=== PATIENT | female | born 1985 ===

== ENCOUNTER 2023-02-09 15:28 | Outpatient (REF) | payer OTHER, SELFPAY ==
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
== END 2023-02-09 15:29 | disposition home or self-care (01) ==
LOC: HO.HHCX 15:28
PROVIDERS: Visit Provider General Practice
DX: S13.4XXA Sprain of ligaments of cervical spine, initial encounter (principal)
CPT/HCPCS: 72070

== ENCOUNTER 2023-02-26 19:06 | Outpatient (REF) | payer OTHER, MEDICAID, SELFPAY | END 2023-02-26 19:07 | disposition home or self-care (01) | LOC: HO.HHCLNP 19:06 | PROVIDERS: Visit Provider Family Medicine | DX: J02.9 Acute pharyngitis, unspecified (principal) | CPT/HCPCS: 87070 ==

== ENCOUNTER 2023-04-10 13:23 | Outpatient (REF) | payer OTHER, SELFPAY ==
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
== END 2023-04-10 13:24 | disposition home or self-care (01) ==
LOC: HO.HHCX 13:23
PROVIDERS: Visit Provider Family Medicine
DX: M54.2 Cervicalgia (principal)
CPT/HCPCS: 72040

== ENCOUNTER 2023-06-04 09:58 | Outpatient (REF) | payer OTHER, MEDICAID, SELFPAY ==
--- NOTE | 2023-06-04 10:12 | EMG_ITS ---
Left median and ulnar motor and sensory studies were performed. Left radial sensory study was performed and paraspinal muscles were tested with a needle. IMPRESSION: Mild left ulnar neuropathy across cubital tunnel. MD JUAN C Doss/DAYNA / [id number]
== END 2023-06-04 09:59 | disposition home or self-care (01) ==
LOC: HO.NEURO 09:58
PROVIDERS: PCP Family Medicine; Visit Provider Family Medicine
DX: G56.22 Lesion of ulnar nerve, left upper limb (principal); M54.2 Cervicalgia
CPT/HCPCS: 95886; 95909

== ENCOUNTER 2023-06-25 08:54 | Outpatient (AMB) | payer MEDICAID, SELFPAY ==
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
[2023-06-25 09:05] VITALS: BP 122/70; PULSE 71; O2SAT 97; BMI 37.3
== END 2023-06-25 09:28 | disposition home or self-care (01) ==
PROVIDERS: PCP Family Medicine; Visit Provider Registered Nurse Emergency
DX: M47.812 Spondylosis without myelopathy or radiculopathy, cervical region (principal); S46.819A Strain of other muscles, fascia and tendons at shoulder and upper arm level, unspecified arm, initial encounter
CPT/HCPCS: 99204

== ENCOUNTER → 2023-06-25 08:54 | Outpatient (BNVA) | payer OTHER, MEDICAID, SELFPAY | PROVIDERS: PCP Family Medicine; Visit Provider Registered Nurse Emergency | DX: M47.812 Spondylosis without myelopathy or radiculopathy, cervical region (principal); S46.819A Strain of other muscles, fascia and tendons at shoulder and upper arm level, unspecified arm, initial encounter | CPT/HCPCS: 99212 ==

== ENCOUNTER 2023-08-04 10:30 | Outpatient (RCR) | payer OTHER, MEDICAID, SELFPAY | END 2023-08-21 14:02 | disposition home or self-care (01) | LOC: HO.OT 10:30 | PROVIDERS: PCP Family Medicine; Visit Provider Family Medicine | DX: G56.22 Lesion of ulnar nerve, left upper limb (principal) | CPT/HCPCS: 97110; 97140; 97165 ==

== ENCOUNTER → 2023-08-05 11:27 | Outpatient (BNVA) | payer OTHER, MEDICAID, SELFPAY | PROVIDERS: PCP Family Medicine; Visit Provider Registered Nurse Emergency ==

== ENCOUNTER 2023-08-05 11:28 | Outpatient (AMB) | payer MEDICAID, SELFPAY ==
[2023-08-05 11:33] VITALS: BP 133/80; PULSE 66; RESP 18; O2SAT 98; BMI 37.1
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
== END 2023-08-05 11:46 | disposition home or self-care (01) ==
PROVIDERS: PCP Family Medicine; Visit Provider Registered Nurse Emergency
DX: M47.812 Spondylosis without myelopathy or radiculopathy, cervical region (principal); S46.819A Strain of other muscles, fascia and tendons at shoulder and upper arm level, unspecified arm, initial encounter
CPT/HCPCS: 99213

== ENCOUNTER 2023-09-22 12:48 | Outpatient (REF) | payer OTHER, MEDICAID, SELFPAY ==
[2023-09-22 16:26] LABS: Hematocrit 45.4 % (37.0-47.0); Hemoglobin 15.1 g/dl (12.0-16.0); Mean Corpuscular HGB Conc 33.3 g/dl (31.0-35.0); Mean Corpuscular Hemoglobin 29.3 pg (27.0-33.0); Mean Corpuscular Volume 88.2 fL (80.0-98.0); Mean Platelet Volume 9.8 fL (9.4-12.3); Platelet Count 401 X10*3/uL (160-400); Red Blood Count 5.15 X10*6/uL (4.20-5.50); Red Cell Distribution Width 12.2 % (11.0-16.0)
[2023-09-22 16:37] LABS: Estimated Average Glucose 117 mg/dL; Hemoglobin A1c % 5.7 % (<6.0)
[2023-09-22 16:55] LABS: Alanine Aminotransferase 24 U/L (0-31); Albumin Level 4.5 g/dL (3.5-5.0); Alkaline Phosphatase 76 U/L (39-117); Anion Gap 13 (12-20); Aspartate Amino Transferase 23 U/L (5-31); Bilirubin Direct 0.2 mg/dL (0.0-0.5); Bilirubin Total 0.4 mg/dL (0.0-1.0); Blood Urea Nitrogen 8 mg/dL (9-16); Calcium 9.6 mg/dL (8.4-10.2); Carbon Dioxide 25 mmol/L (22-29); Chloride 105 mmol/L (96-108); Cholesterol 209 mg/dL (<200); Estimated Glomerular Filt Rate > 60; Glucose Random 106 mg/dL (60-115); HDL Cholesterol 43 mg/dL (>40); Iron 56 mcg/dL (30-160); LDL Cholesterol Calculated 139 mg/dL (<100); Percent Iron Saturation 23 % (15-50); Sodium 139 mmol/L (135-145); Total Iron Binding Capacity 243 mcg/dL (228-428); Total Protein 7.8 g/dL (6.5-8.0); Triglycerides 139 mg/dL (<150); Unsaturated Iron Binding 187 ug/dL
[2023-09-22 17:03] LABS: Ferritin 294 ng/mL (10-122); Free T4 (Free Thyroxine) 1.05 ng/dL (0.71-1.85); Thyroid Stimulating Hormone 1.57 uIU/mL (0.32-4.0); Vitamin D 25-OH Total 53.2 ng/mL (>30)
[2023-09-22 17:33] LABS: Folate 9.6 ng/mL (> or = 4.0); Vitamin B12 300 pg/mL (200-900)
[2023-09-23 04:13] LABS: HIV AB/AG Nonreactive (Nonreactive); HIV Num 1 0.06 S/CO (0.00-0.99); Hepatitis B Surface Antigen Negative (Negative); ~HepC Num1 0.11 S/CO (0.00-0.79); ~Hepatitis B Surface Antibody REACTIVE (Nonreactive); ~Hepatitis C Antibody Nonreactive (Nonreactive)
[2023-09-23 05:29] LABS: CT PCR NOT DETECTED (Not Detect.); NG PCR NOT DETECTED (Not Detect.)
[2023-09-23 21:54] LABS: RPR Rapid Plasma Reagin NON-REACTIVE (NON-REACTIVE)
[2023-09-24 05:46] LABS: Rubella IgG Antibody 1.87 Index; Rubeola IgG (Measles) >300.00 AU/mL
== END 2023-09-22 12:49 | disposition home or self-care (01) ==
LOC: HO.HHCL 12:48
PROVIDERS: Visit Provider Family Medicine
DX: Z00.00 Encounter for general adult medical examination without abnormal findings (principal); Z11.4 Encounter for screening for human immunodeficiency virus [HIV]; Z13.6 Encounter for screening for cardiovascular disorders; D64.9 Anemia, unspecified; Z20.2 Contact with and (suspected) exposure to infections with a predominantly sexual mode of transmission
CPT/HCPCS: 0353U; 36415; 80048; 80061; 80076; 82306; 82607; 82728; 82746; 83036; 83540; 84439; 84443; 85027; 86592; 86706; 86735; 86762; 86765; 86787; 86803; 87340; 87389

== ENCOUNTER 2023-10-13 06:07 | Outpatient (REF) | payer OTHER, MEDICAID, SELFPAY ==
--- NOTE | ~2023-10-13 | FL_ITS ---
EXAMINATION: XR FLUOROSCOPY WITH IMAGES CLINICAL INFORMATION: Cervical spondylosis, without myelopathy or radiculopathy. COMPARISON: Cervical spine radiographs dated 04/10/2023. TECHNIQUE: Fluoroscopy Supervised By: Dr. Tito Middleton. Fluoroscopy Time: 0.3 minutes. Cumulative Dose: 3.20 mGy. DAP: 0.872 Gycm2. Images: 4. FINDINGS: The submitted images show injection needles and injected contrast in the vicinity of 3 left mid cervical neural foramina. FL/FL guidance in treatment room IMPRESSION: Intraoperative fluoroscopic guidance is provided during cervical spine pain management procedure. Please see the patient's Operative Report for full procedural details.
== END 2023-10-13 06:08 | disposition home or self-care (01) ==
LOC: CF 06:07
PROVIDERS: Visit Provider Anesthesiology
DX: M47.812 Spondylosis without myelopathy or radiculopathy, cervical region (principal); S46.812D Strain of other muscles, fascia and tendons at shoulder and upper arm level, left arm, subsequent encounter
CPT/HCPCS: 64490; 64491; J2795; Q9967

== ENCOUNTER 2023-10-13 10:58 | Outpatient (AMB) | payer OTHER, MEDICAID, SELFPAY ==
[2023-10-13 11:41] VITALS: BP 112/64; PULSE 74; RESP 16; O2SAT 98; BMI 37.1
--- NOTE | 2023-10-13 11:41 | MHC.OFFVIS ---
Intake Vital Signs 10/13/23 11:41 10/13/23 11:42 Height 5 ft Weight 190 lb BMI 37.1 BP 112/64 126/82 Blood Pressure Location Lt brachial Lt brachial Position Sitting Sitting Respiration 16 18 Pulse 74 84 Pulse Source Pulse Oximeter Pulse Oximeter Pulse Oximetry (%) 98 99 Oxygen Delivery Method Room Air Room Air Comment Pre-Op Post-Op Intake Visit Reasons: LEFT DIAGNOSTIC C4, C5, C6 MBB Allergies oxycodone Allergy (Unknown, Verified 08/05/23 11:35) Vomiting codeine Adverse Reaction (Unknown, Verified 08/05/23 11:35) Itching FRUIT, SKINS Allergy (Intermediate, Uncoded 03/15/20 15:34) ITCHING PFSH Medical History (Updated 06/25/23 @ 09:35 by Dinora Bahena APRN, WATER TRUCK DRIVER) GERD (gastroesophageal reflux disease) Hypothyroidism Depression Chronic low back pain Anemia Allergic rhinitis Asthma Physical Exam Vital Signs: Last Vital Signs Pulse 84 10/13/23 11:42 Resp 18 10/13/23 11:42 BP 126/82 10/13/23 11:42 Pulse Ox 99 10/13/23 11:42 Oxygen Delivery Method Room Air 10/13/23 11:42 BMI result Body Mass Index 37.1 Assessment & Plan Assessment & Plan (1) Cervical spondylosis: Code(s): M47.812 - Spondylosis without myelopathy or radiculopathy, cervical region Plan: Left-sided C4-C4- C6 diagnose medial branch block. ?Informed consent was explained to the patient. All questions were explained and answered.? The patient was taken inside the operating room where she was positioned prone on the operating table. Time-out was performed delineating correct site, side, the nature of the procedure, patient's allergy, preoperative antibiotic if needed.? All operating room staff was participating in OR time-out procedure. The back of the neck and upper back were prepped with ChloraPrep and draped with sterile towels.? Sterilely draped C-arm was brought over the operating field and sq picture of? C4-C5-C6 vertebrae were delineated on the screen.? Points of interest were delineated as lateral masses on the left of the vertebrae as above. The waste of each lateral mass was chosen as the target of the tip of the needles on AP view and lateral view was used as a safety view for the tips of the needles position.?? The projections of the point of interest to the skin were injected with the small amount of local anesthetic lidocaine 2% 1-1.5 cc.? After that 22 gauge 3and 1/2 inch? spinal needles were driven to the point of interest in tunnel vision fashion. After needles gently contacted the bone at the point of interests the needle was injected with small amount of the contrast. The injections did not demonstrate intravascular or intrathecal spread.. After that ropivacaine 0.5%-1cc. was injected into each location of the needles. Upon completion of the injections the needles were removed and sterile dressings were applied, the patient was a taken? outside of the operating room to recovery room where she recovered uneventfully. (2) Trapezius muscle strain: Code(s): S46.819A - Strain of other muscles, fascia and tendons at shoulder and upper arm level, unspecified arm, initial encounter Plan Sarah is a very pleasant 38 year old female who presented to the office today for follow-up Patient has exhausted greater than 6 months conservative therapy including muscle relaxers, NSAIDs, Tylenol, topical ointment, heat, ice, physical therapy. Continue with Zynex Tens unit Schedule for diagnostic fluoroscopy guided right C4-C5 C6 MBBs with local anesthetic. All questions and concerns were addressed during the visit. Patient agrees the plan. Follow-up after injection, sooner if needed. Orders: Orders FL guidance in treatment room Today M47.812 - Spondylosis without myelopathy or radiculopathy, cervical region Coding Level of Care Code Procedure Only Diagnoses Cervical spondylosis M47.812 Trapezius muscle strain S46.819A
[2023-10-13 11:42] VITALS: BP 126/82; PULSE 84; RESP 18; O2SAT 99
== END 2023-10-13 11:43 | disposition home or self-care (01) ==
LOC: HO.PMCPRC 10:58
PROVIDERS: PCP Family Medicine; Visit Provider Anesthesiology
DX: M47.812 Spondylosis without myelopathy or radiculopathy, cervical region (principal); S46.819A Strain of other muscles, fascia and tendons at shoulder and upper arm level, unspecified arm, initial encounter
CPT/HCPCS: 64490; 64491

== ENCOUNTER 2023-10-16 10:19 | Outpatient (AMB) | payer OTHER, MEDICAID, SELFPAY ==
[2023-10-16 10:43] VITALS: BP 120/64; PULSE 65; RESP 18; O2SAT 98; BMI 36.9
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
== END 2023-10-16 11:09 | disposition home or self-care (01) ==
PROVIDERS: PCP Family Medicine; Visit Provider Registered Nurse Emergency
DX: M47.812 Spondylosis without myelopathy or radiculopathy, cervical region (principal); S46.819A Strain of other muscles, fascia and tendons at shoulder and upper arm level, unspecified arm, initial encounter
CPT/HCPCS: 99213

== ENCOUNTER → 2023-10-16 10:19 | Outpatient (BNVA) | payer OTHER, MEDICAID, SELFPAY | PROVIDERS: PCP Family Medicine; Visit Provider Registered Nurse Emergency ==

== ENCOUNTER 2023-10-21 14:17 | Outpatient (AMB) | payer MEDICAID, SELFPAY ==
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
[2023-10-21 14:27] VITALS: BMI 36.9
== END 2023-10-21 15:18 | disposition home or self-care (01) ==
PROVIDERS: PCP Family Medicine; Visit Provider Physician Assistant
DX: G56.22 Lesion of ulnar nerve, left upper limb (principal)
CPT/HCPCS: 99204

== ENCOUNTER → 2023-10-21 14:17 | Outpatient (BNVA) | payer OTHER, MEDICAID, SELFPAY | PROVIDERS: PCP Family Medicine; Visit Provider Physician Assistant | DX: G56.22 Lesion of ulnar nerve, left upper limb (principal) | CPT/HCPCS: 99212 ==

== ENCOUNTER 2023-11-10 06:57 | Outpatient (REF) | payer MEDICAID, SELFPAY ==
--- NOTE | ~2023-11-10 | FL_ITS ---
EXAMINATION: XR FLUOROSCOPY WITH IMAGES CLINICAL INFORMATION: Spondylosis without myelopathy or radiculopathy, cervical region. COMPARISON: None available. TECHNIQUE: Fluoroscopy Supervised By: Dr. Tito Middleton. Fluoroscopy Time: 0.1 minutes. Cumulative Dose: 1.12 mGy. DAP: 0.0130 Gy-cm2. Images: 1. FINDINGS: Intraoperative fluoroscopy and spot films were performed during a procedure in the OR. Single image demonstrates a thin track of contrast overlying the left lower cervical spine. Please see Dr. Tito Middleton's report for complete details. FL/FL guidance in treatment room IMPRESSION: Intraoperative fluoroscopy and spot films were obtained. Please see Dr. Tito Middleton's report for complete details.
== END 2023-11-10 06:58 | disposition home or self-care (01) ==
LOC: CF 06:57
PROVIDERS: PCP Family Medicine; Visit Provider Anesthesiology
DX: M47.812 Spondylosis without myelopathy or radiculopathy, cervical region (principal); G56.22 Lesion of ulnar nerve, left upper limb; R20.0 Anesthesia of skin; R20.2 Paresthesia of skin
CPT/HCPCS: 64555; 99212

== ENCOUNTER 2023-11-10 10:23 | Outpatient (AMB) | payer MEDICAID, SELFPAY ==
--- NOTE | 2023-11-10 10:37 | A.OFFVIS_ITS ---
Vital Signs 11/10/23 11:09 11/10/23 11:10 Height 5 ft Weight 189 lb BMI 36.9 BP 122/76 118/68 Blood Pressure Location Lt brachial Lt brachial Position Sitting Sitting Respiration 18 18 Pulse 76 84 Pulse Source Pulse Oximeter Pulse Oximeter Pulse Oximetry (%) 97 97 Oxygen Delivery Method Room Air Room Air Comment Pre-Op Post-Op Intake Visit Reasons: Left C5 MB Sprint Allergies oxycodone Allergy (Unknown, Verified 10/21/23 14:32) Vomiting codeine Adverse Reaction (Unknown, Verified 10/21/23 14:32) Itching FRUIT, SKINS Allergy (Intermediate, Uncoded 10/21/23 14:32) ITCHING PFSH Medical History (Updated 10/21/23 @ 20:21 by Anai Peguero PA-C) GERD (gastroesophageal reflux disease) Hypothyroidism Depression Chronic low back pain Anemia Allergic rhinitis Asthma Social History (Updated 10/21/23 @ 14:27 by Erica Blunt Cinthia) Patient Tobacco Use Status: Former Tobacco user Current occupational status: employed 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 Percutaneous implantation of peripheral nerve stimulation Sprint system. After the risks, benefits and alternatives were discussed with the patient and informed consent was obtained, patient was placed in the prone position and padded to foster comfort. Time out was performed delineating correct site and side of the procedure , name and of the patient, patient participated in time out procedure. Sterily draped C-arm was brought over the operating field and clear picture of the C5 lamina on the left was delineated on the screen. The upper central portion of the lamina was chosen as a target of the needle tip insertion . After identifying and marking the intended target, the skin around the planned entry point and the subcutaneous tissues were injected with local anesthetic forming skin wheal.. A percutaneous sleeve and stimulating probe lead introduction system were assembled, inserted and advanced through the skin wheal to the point of interest under C-arm view in tunnel vision fashion, the introducer needle was delivered to a location in proximity to the nerve. Multiple stimulation parameters were used to deliver stimulation to the nerve in concert with stimulating at multiple positions around the nerve. nerve target acquisition was confirmed noting generation of in the corresponding to the nerve being stimulated. Various electrical parameter combinations were tested, and the lead location was adjusted (physically relocated) until the patient indicated overlapping the distribution of the patient?s typical region of pain. The stimulating probe was removed from the introducer and a percutaneous lead was guided through the needle and delivered to a location in similar proximity to the nerve. Final location was verified with electrical stimulation. The introducer needle was removed, and the exposed end of the percutaneous lead was attached to an external stimulator unit. At the end of the case various electrical parameter combinations were again tested until the patient indicated paresthesia or muscle tension overlapping the distribution of the patient?s typical region of pain. After confirming that lead impedance was in the normal range, the external unit was detached, the needle was removed, and the lead was anchored at the skin. The lead was threaded into the connector block and electrical continuity and desired patient response was confirmed. The connector block was attached to the external stimulator unit. The site was covered with a sterile occlusive dressing and a image was taken to document final placement. Upon completion of the procedure the patient was taken outside the OR where she recovered uneventfully he went home without immediate complications Orders: Orders FL guidance in treatment room Today M47.812 - Spondylosis without myelopathy or radiculopathy, cervical region Coding Level of Care Code Procedure Only Diagnoses Cervical spondylosis M47.812
[2023-11-10 11:09] VITALS: BP 122/76; PULSE 76; RESP 18; O2SAT 97; BMI 36.9
[2023-11-10 11:10] VITALS: BP 118/68; PULSE 84; RESP 18; O2SAT 97
== END 2023-11-10 11:06 | disposition home or self-care (01) ==
LOC: HO.PMCPRC 10:24
PROVIDERS: PCP Family Medicine; Visit Provider Anesthesiology
DX: M47.812 Spondylosis without myelopathy or radiculopathy, cervical region (principal)
CPT/HCPCS: 64555

== ENCOUNTER 2023-11-10 15:12 | Outpatient (AMB) | payer MEDICAID, SELFPAY ==
[2023-11-10 15:25] VITALS: BMI 36.9
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
== END 2023-11-10 15:59 | disposition home or self-care (01) ==
PROVIDERS: PCP Family Medicine; Referring Provider Family Medicine; Visit Provider Orthopaedic Surgery
DX: G56.22 Lesion of ulnar nerve, left upper limb (principal); R20.0 Anesthesia of skin; R20.2 Paresthesia of skin
CPT/HCPCS: 99024

== ENCOUNTER 2023-11-18 13:21 | Outpatient (AMB) | payer MEDICAID, SELFPAY ==
[2023-11-18 13:32] VITALS: BP 118/74; PULSE 96; RESP 16; O2SAT 97; BMI 36.8
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
== END 2023-11-18 14:24 | disposition home or self-care (01) ==
LOC: HO.PMC 13:22
PROVIDERS: PCP Family Medicine; Visit Provider Registered Nurse Emergency
DX: G56.22 Lesion of ulnar nerve, left upper limb (principal); M47.812 Spondylosis without myelopathy or radiculopathy, cervical region; S46.819A Strain of other muscles, fascia and tendons at shoulder and upper arm level, unspecified arm, initial encounter
CPT/HCPCS: 99024

== ENCOUNTER → 2023-11-18 13:22 | Outpatient (BNVA) | payer MEDICAID, SELFPAY | PROVIDERS: PCP Family Medicine; Visit Provider Registered Nurse Emergency | DX: M47.812 Spondylosis without myelopathy or radiculopathy, cervical region (principal); G56.22 Lesion of ulnar nerve, left upper limb; S46.812A Strain of other muscles, fascia and tendons at shoulder and upper arm level, left arm, initial encounter; V49.40XA Driver injured in collision with unspecified motor vehicles in traffic accident, initial encounter; Y93.9 Activity, unspecified; Y92.488 Other paved roadways as the place of occurrence of the external cause; Y99.9 Unspecified external cause status | CPT/HCPCS: 99212 ==

== ENCOUNTER 2023-11-27 10:58 | Outpatient (REF) | payer MEDICAID, SELFPAY ==
--- NOTE | 2023-11-27 11:02 | EMG_ITS ---
Chief complaint: Left hand numbness Reason for referral: Compare to previous EMG done by Dr. Vásquez 06/04/2023 that showed left ulnar neuropathy at the elbow (slowing of conduction velocity across the elbow). Referred by: Dr. Harmon Procedure done: Left upper extremity NCS/EMG Precautions and/or limitations: None The limb temperature was monitored continuously and remained between 32-36 degrees C during the performance of the NCS. Ulnar motor NCS was performed with moderate elbow flexion between 70-90 degrees, with across-elbow distance of 10 cm. Nerve Conduction Studies Anti Sensory Summary Table ?Stim Site NR Onset (ms) Norm Onset (ms) Peak (ms) Norm Peak (ms) O-P Amp (?V) Norm O-P Amp Site1 Site2 Delta-0 (ms) Dist (cm) Elbert (m/s) Norm Elbert (m/s) Left Median Anti Sensory (2nd Digit) Wrist ? 1.9 2.7 <3.6 42.8 >10 Wrist 2nd Digit 1.9 14.0 74 Left Ulnar Anti Sensory (5th Digit) Wrist ? 2.0 3.0 <3.7 45.5 >15.0 Wrist 5th Digit 2.0 14.0 70 Motor Summary Table ?Stim Site NR Onset (ms) Norm Onset (ms) O-P Amp (mV) Norm O-P Amp iAmp (mV) Amp (1st) (%) Site1 Site2 Delta-0 (ms) Dist (cm) Elbert (m/s) Norm Elbert (m/s) Left Median Motor (Abd Poll Brev) Wrist ? 2.9 <3.9 18.0 >4.5 20.3 100.0 Elbow Wrist 3.1 18.0 58 >45 Elbow ? 6.0 18.0 20.6 100.0 Left Ulnar Motor (Abd Dig Minimi) Wrist ? 2.6 <3.0 11.4 >5 13.5 100.0 B Elbow Wrist 2.6 16.0 62 >45 B Elbow ? 5.2 11.6 13.9 101.8 A Elbow B Elbow 1.9 10.0 53 >45 A Elbow ? 7.1 11.3 14.0 99.1 Left Ulnar Motor (FDI) Wrist ? 2.6 <3.0 11.8 >5 15.3 100.0 B Elbow Wrist 3.3 16.0 48 >45 B Elbow ? 5.9 16.4 21.1 139.0 A Elbow B Elbow 1.9 10.0 53 >45 A Elbow ? 7.8 16.7 20.8 141.5 Comparison Summary Table ?Stim Site NR Peak (ms) Norm Peak (ms) P-T Amp (?V) Site1 Site2 Delta-P (ms) Norm Delta (ms) Left Median/Radial Dig I Comparison (Digit 1 - 10cm) Median ? 2.3 <2.9 57.7 Median Radial 0.1 Radial ? 2.2 <2.8 16.2 EMG ?Side Muscle Nerve Root Ins Act Fibs Psw Amp Dur Poly Recrt Int Pat Comment Left 1stDorInt Ulnar C8-T1 Nml Nml Nml Nml Nml 0 Nml Complete Left FlexCarRad Median C6-7 Nml Nml Nml Nml Nml 0 Nml Complete Left Biceps Musculocut C5-6 Nml Nml Nml Nml Nml 0 Nml Complete Left Triceps Radial C6-7-8 Nml Nml Nml Nml Nml 0 Nml Complete Left Deltoid Axillary C5-6 Nml Nml Nml Nml Nml 0 Nml Complete FINDINGS: Left ulnar motor nerve, recording at ADM, showed normal distal latency, normal amplitude and only slight slowing of conduction velocity across the elbow but still within normal. Left ulnar motor nerve, recording at FDI, showed normal distal latency, normal amplitude and normal conduction velocity. Left median motor nerve showed normal distal latency, normal amplitude and normal conduction velocity. Left median sensory nerve showed normal peak latency. Left ulnar sensory nerve showed normal peak latency. No significant interlatency difference between left median and radial sensory nerves. Concentric needle EMG was performed in selected muscles of the left upper extremity. Study did not reveal signs of electric abnormalities as shown in the table below. IMPRESSION: 1. This is a normal study. 2. There is no electrodiagnostic evidence for median neuropathy, ulnar neuropathy, brachial plexopathy, or cervical radiculopathy. Thank you for your kind referral. Ema Shepard MD, SADI Board Certified, [place] Board [employer] and Rehabilitation (ABPMR) Board Certified, [place] Board of Electrodiagnostic Medicine (ABEM) CODIN [id number] [facility]
== END 2023-11-27 10:59 | disposition home or self-care (01) ==
LOC: HO.NEURO 10:58
PROVIDERS: PCP Family Medicine; Visit Provider Orthopaedic Surgery
DX: R20.0 Anesthesia of skin (principal); R20.2 Paresthesia of skin
CPT/HCPCS: 95886; 95909

== ENCOUNTER → 2023-11-27 11:02 | Outpatient (BNV) | payer MEDICAID, SELFPAY | PROVIDERS: PCP Family Medicine; Visit Provider Physical Medicine & Rehabilitation | DX: R20.2 Paresthesia of skin (principal); R20.0 Anesthesia of skin | CPT/HCPCS: 95886; 95909 ==

== ENCOUNTER → 2023-12-10 10:24 | Outpatient (BNVA) | payer MEDICAID, SELFPAY | PROVIDERS: PCP Family Medicine; Visit Provider Anesthesiology | DX: M47.812 Spondylosis without myelopathy or radiculopathy, cervical region (principal); R51.9 Headache, unspecified; G56.22 Lesion of ulnar nerve, left upper limb; Z45.42 Encounter for adjustment and management of neurostimulator | CPT/HCPCS: 99212 ==

== ENCOUNTER 2023-12-10 10:39 | Outpatient (AMB) | payer MEDICAID, SELFPAY ==
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
== END 2023-12-10 10:45 | disposition home or self-care (01) ==
LOC: HO.PMC 10:39
PROVIDERS: PCP Family Medicine; Visit Provider Registered Nurse Emergency
DX: G56.22 Lesion of ulnar nerve, left upper limb (principal); M47.812 Spondylosis without myelopathy or radiculopathy, cervical region; S46.819A Strain of other muscles, fascia and tendons at shoulder and upper arm level, unspecified arm, initial encounter
CPT/HCPCS: 99213

== ENCOUNTER 2023-12-22 09:47 | Outpatient (AMB) | payer MEDICAID, SELFPAY ==
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
[2023-12-22 10:05] VITALS: BMI 36.9
== END 2023-12-22 10:33 | disposition home or self-care (01) ==
PROVIDERS: PCP Family Medicine; Visit Provider Orthopaedic Surgery
DX: M25.522 Pain in left elbow (principal); R20.0 Anesthesia of skin; R20.2 Paresthesia of skin
CPT/HCPCS: 99213

== ENCOUNTER → 2023-12-22 09:47 | Outpatient (BNVA) | payer MEDICAID, SELFPAY | PROVIDERS: PCP Family Medicine; Visit Provider Orthopaedic Surgery | DX: M25.522 Pain in left elbow (principal); R20.0 Anesthesia of skin; R20.2 Paresthesia of skin | CPT/HCPCS: 99212 ==

== ENCOUNTER 2024-01-27 13:33 | Outpatient (AMB) | payer MEDICAID, SELFPAY ==
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
== END 2024-01-27 14:04 | disposition home or self-care (01) ==
LOC: HO.PMC 13:33
PROVIDERS: PCP Family Medicine; Visit Provider Registered Nurse Emergency
DX: G56.22 Lesion of ulnar nerve, left upper limb (principal); M47.812 Spondylosis without myelopathy or radiculopathy, cervical region; S46.819A Strain of other muscles, fascia and tendons at shoulder and upper arm level, unspecified arm, initial encounter
CPT/HCPCS: 99213

== ENCOUNTER → 2024-01-27 13:33 | Outpatient (BNVA) | payer MEDICAID, SELFPAY | PROVIDERS: PCP Family Medicine; Visit Provider Registered Nurse Emergency | DX: G56.22 Lesion of ulnar nerve, left upper limb (principal); M47.812 Spondylosis without myelopathy or radiculopathy, cervical region; S46.819A Strain of other muscles, fascia and tendons at shoulder and upper arm level, unspecified arm, initial encounter ==

== ENCOUNTER 2024-02-15 13:12 | Outpatient (REF) | payer MEDICAID, SELFPAY ==
--- NOTE | ~2024-02-15 | XR_ITS ---
EXAMINATION: XR LUMBOSACRAL SPINE WITH OBLIQUES CLINICAL INFORMATION: Chronic bilateral low back pain COMPARISON: None available. TECHNIQUE: AP, both oblique, and lateral views of the lumbar spine. Lateral view of the lumbosacral junction. FINDINGS: The vertebral bodies and posterior elements are normal. The disc spaces are preserved and the vertebral alignment is normal. The paraspinal soft tissues are normal. XR/XR lumbar spine 4V min IMPRESSION: Unremarkable examination.
== END 2024-02-15 13:13 | disposition home or self-care (01) ==
LOC: HO.HHCX 13:12
PROVIDERS: Visit Provider Family Medicine
DX: M54.42 Lumbago with sciatica, left side (principal); G89.29 Other chronic pain
CPT/HCPCS: 72110

== ENCOUNTER 2024-02-16 08:27 | Outpatient (REF) | payer MEDICAID, SELFPAY ==
--- NOTE | ~2024-02-16 | US_ITS ---
EXAMINATION: US VENOUS ULTRASOUND WITH DOPPLER LOWER EXTREMITY, LEFT CLINICAL INFORMATION: Left lower extremity COMPARISON: None available. TECHNIQUE: Ultrasound of the deep veins is performed from the hip to the calf with compression sonography and color and pulse Doppler assessment. Spectral analysis with color-flow imaging is performed. FINDINGS: There is normal venous compression and respiratory variation and augmented flow. The visualized common femoral vein, superficial femoral vein, profunda femoral vein, popliteal vein, and the trifurcation region shows no evidence of deep venous thrombosis. There is no significant popliteal fossa cyst. If the patient's symptoms persist, followup ultrasound in 5 days 7 days might be of value to exclude proximal propagation from a non-visualized calf vein. US/US venous duplex LE LT IMPRESSION: No DVT demonstrated in the left lower extremity.
== END 2024-02-16 08:28 | disposition home or self-care (01) ==
LOC: HO.US 08:27
PROVIDERS: PCP Family Medicine; Visit Provider Family Medicine
DX: M79.605 Pain in left leg (principal)
CPT/HCPCS: 93971

== ENCOUNTER 2024-02-18 17:26 | Emergency (ER) | payer MEDICAID, SELFPAY ==
[2024-02-18 17:34] VITALS: BP 125/84; PULSE 76; RESP 18; TEMP 36.6; O2SAT 99; BMI 37.1
--- NOTE | 2024-02-18 17:38 | ED.GENADULT ---
HPI - General Adult General Chief complaint: Upper Respiratory Symptoms Stated complaint: coughing sob sore throat Time Seen by Provider: 02/18/24 17:57 Source: patient Mode of arrival: ambulatory Limitations: no limitations History of Present Illness ED Provider: Tigist Bella PA-C HPI narrative: 38-year-old female presents to the ER for evaluation of 2 days of sore throat, dry cough, body aches and shortness of breath. She states she has a young son who is sick with strep throat at home. She states she recently had COVID 4 weeks ago. She states she has a history of asthma but has not been wheezing. She is not bringing up any phlegm. When she coughs it hurts her throat. She does not report any pain with swallowing. No fevers. No abdominal pain, chest pain, nausea, vomiting or diarrhea. MD complaint: Sore throat, cough, body aches Onset (ago): day(s) (2) Location: face and mouth Radiation: non-radiation Severity: moderate Quality: aching Pain Consistency: constant Relieving factors: medication Exacerbating factors: eating Associated symptoms: cough, headaches, loss of appetite, malaise and shortness of breath Treatments prior to arrival: none Related Data Home Medications ?Medication ?Instructions ?Recorded ?Confirmed acetaminophen 650 mg 650 mg PO Q6-8H PRN mild pain 06/23/23 tablet,extended release albuterol sulfate 90 mcg/actuation 1 puff inhalation Q4H PRN 06/23/23 aerosol inhaler (Proventil HFA) ascorbic acid (vitamin C) 250 mg 250 mg PO BID 06/23/23 tablet baclofen 10 mg tablet 10 mg PO TID PRN muscle spasm 06/23/23 cholecalciferol (vitamin D3) 50 50 mcg PO DAILY 06/23/23 mcg (2,000 unit) capsule (Vitamin D3) diclofenac sodium 1 % topical gel 2 g topical QID PRN pain 06/23/23 docusate sodium 100 mg capsule 100 mg PO BID PRN constipation 06/23/23 epinephrine 0.15 mg/0.3 mL IM DIRECTED 06/23/23 injection,auto-injector ferrous sulfate 325 mg (65 mg 325 mg PO BID 06/23/23 iron) tablet (FeroSul) fluticasone propionate 50 2 spray intranasal DAILY 06/23/23 mcg/actuation nasal spray,suspension gabapentin 100 mg capsule 100 mg PO TID 06/23/23 ibuprofen 600 mg tablet 600 mg PO Q8H PRN moderate pain 06/23/23 ketotifen fumarate 0.025 % (0.035 1 drp ophthalmic (eye) BID PRN itch 06/23/23 %) eye drops (Eye Itch Relief) levothyroxine 50 mcg tablet 50 mcg PO DAILY 06/23/23 loratadine 10 mg tablet 10 mg PO DAILY 06/23/23 lorazepam 0.5 mg tablet 0.5 mg PO 06/23/23 meclizine 25 mg tablet 25 mg PO TID PRN dizziness 06/23/23 melatonin 5 mg tablet 5 - 10 mg PO insomnia 06/23/23 naproxen 500 mg tablet 500 mg PO mild pain 06/23/23 omeprazole 20 mg capsule,delayed 20 mg PO BID 06/23/23 release zolpidem 10 mg tablet 10 mg PO BEDTIME PRN insomnia 06/23/23 Previous Rx's ?Medication ?Instructions ?Recorded tizanidine 2 mg tablet 2 mg PO TID PRN muscle spasticity 06/25/23 #90 tabs Allergies Allergy/AdvReac Type Severity Reaction Status Date / Time oxycodone Allergy Unknown Vomiting Verified 02/18/24 17:36 codeine AdvReac Unknown Itching Verified 02/18/24 17:36 FRUIT, SKINS Allergy Intermediate ITCHING Uncoded 02/18/24 17:36 Review of Systems Review of Systems: Yes all other systems are reviewed and are negative [facility] Past Medical History Medical History (Updated 02/19/24 @ 00:00 by Atif Mendez) GERD (gastroesophageal reflux disease) Hypothyroidism Depression Chronic low back pain Anemia Allergic rhinitis Asthma Social History Social History Patient Tobacco Use Status: Former Tobacco user Current occupational status: employed 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 Oriented X3. No acute distress. Head: normocephalic, atraumatic. Eyes: Pupils equal, round and reactive to light. ENT: Pharynx normal. No tonsillar swelling or exudate. Clear nasal discharge. Left tympanic membrane with mild erythema, no bulging or effusion Neck: Normal inspection. Neck supple. CVS: Normal heart rate and rhythm. Pulses normal. Respiratory: No respiratory distress. Breath sounds normal. Skin: Skin warm and dry. Normal skin color. Normal skin turgor. No rashes. Extremities: No lower extremity edema. No joint swelling. Neuro/psych: Oriented X 3. Grossly normal, nonfocal Course Course Course Narrative: This is a Rapid Medical Examination (RME) performed by Nikky Shelley PA-C in triage. Full HPI, ROS, assessment and treatment plan per primary provider in the Main ED. 38 yo female here w/ myalgias, sore throat, cough, sob x2 days. son ill with strep throat at home. + actively coughing. lungs clear. posterior orophayrnx wnl. Plan: viral/ strep swabs Medical Decision Making Medical Decision Making [facility] Narrative: 38-year-old female with history mild intermittent asthma presents to the ER for evaluation of sore throat, body aches, dry cough and shortness of breath for the last 2 days. Known sick contacts with her son who has strep throat. Her lungs are clear to auscultation her vital signs are stable. Low clinical suspicion for pneumonia. Does not appear to have an asthma exacerbation as she is not wheezing at this time. COVID and strep swabs were done. Strep test is negative. Patient does not require antibiotics. Differential Diagnosis Differential Diagnoses: The differential diagnosis associated with the presentation includes strep, covid, flu, rsv, other viral syndrome, bronchitis, pneumonia, no evidence of peritonsillar abcsess or retropharyngeal abscess Lab Data [facility] Lab Attestation statement: I reviewed the patient's lab results. Labs: Lab Results 02/18/24 Range/Units 18:01 COVID-19 (REBECCA) Negative (Negative) COVID-19 Clin Com See Note S. pyogenes GrpA CHASTITY Negative (Negative) External Record Review External record reviewed: Outpatient record, Prior outpatient labs and Prior outpatient radiology Tests considered The following testing was considered but not selected: Consider chest x-ray however lungs are clear, low clinical suspicion for pneumonia Prescription Management I considered prescription management with: Pain Medication, Antiviral and Antibiotic Chronic Conditions Patient?s care impacted by: Other (Asthma) Critical Care Time Critical Care Time Critical Care Time: No Discharge Plan Discharge Clinical Impression: Upper respiratory infection Patient Disposition: Home, Self-Care Instructions: Upper Respiratory Infection (DC) Additional Instructions: Your strep test is negative. Covid test negative. You do not need antibiotics. Your symptoms are most likely due to another viral process. Treatment is rest and supportive care. Take [id number] cold and flu medications as needed for your symptoms. Prescriptions: No Action zolpidem 10 mg tablet 10 mg PO BEDTIME PRN (Reason: insomnia) acetaminophen 650 mg tablet extended release 650 mg PO Q6-8H PRN (Reason: mild pain) naproxen 500 mg tablet 500 mg PO gabapentin 100 mg capsule 100 mg PO TID lorazepam 0.5 mg tablet 0.5 mg PO ferrous sulfate [FeroSul] 325 mg (65 mg iron) tablet 325 mg PO BID loratadine 10 mg tablet 10 mg PO DAILY docusate sodium 100 mg capsule 100 mg PO BID PRN (Reason: constipation) levothyroxine 50 mcg tablet 50 mcg PO DAILY melatonin 5 mg tablet 5 - 10 mg PO diclofenac sodium 1 % gel 2 g topical QID PRN (Reason: pain) baclofen 10 mg tablet 10 mg PO TID PRN (Reason: muscle spasm) ketotifen fumarate [Eye Itch Relief] 0.025 % (0.035 %) drops 1 drp ophthalmic (eye) BID PRN (Reason: itch) omeprazole 20 mg capsule,delayed release(DR/EC) 20 mg PO BID ascorbic acid (vitamin C) 250 mg tablet 250 mg PO BID cholecalciferol (vitamin D3) [Vitamin D3] 50 mcg (2,000 unit) capsule 50 mcg PO DAILY fluticasone propionate 50 mcg/actuation spray,suspension 2 spray intranasal DAILY ibuprofen 600 mg tablet 600 mg PO Q8H PRN (Reason: moderate pain) meclizine 25 mg tablet 25 mg PO TID PRN (Reason: dizziness) epinephrine 0.15 mg/0.3 mL auto-injector IM DIRECTED albuterol sulfate [Proventil HFA] 90 mcg/actuation HFA aerosol inhaler 1 puff inhalation Q4H PRN tizanidine 2 mg tablet 2 mg PO TID PRN (Reason: muscle spasticity) Qty: 90 0RF Stand Alone Forms: Work/School Release Interventions: ED Discharge Assessment Last Done: 02/18/24 19:12 Discharge Date/Time: 02/18/24 19:15 Print Language: Citizen [place]
[2024-02-18 18:22] LABS: IDNOW Serial# 58CA691E; Strep A Nucleic Acid Negative (Negative)
[2024-02-18 18:45] LABS: COVID-19 Test Negative (Negative); IDNOW Serial# 152EDE1D
[2024-02-18 19:06] VITALS: BP 118/86; PULSE 88; RESP 20; TEMP 36.7; O2SAT 99
[2024-02-18 19:12] VITALS: BP 118/86; PULSE 88; RESP 20; TEMP 36.7; O2SAT 99
== END 2024-02-18 19:15 | disposition home or self-care (01) ==
PROVIDERS: Physician Assistant; Physician Assistant Medical; Emergency Provider Emergency Medicine; PCP Family Medicine
DX: J06.9 Acute upper respiratory infection, unspecified (principal); R05.9 Cough, unspecified; J02.9 Acute pharyngitis, unspecified; R06.02 Shortness of breath; Z11.52 Encounter for screening for COVID-19
CPT/HCPCS: 87635; 87651; 99283

== ENCOUNTER 2024-04-01 07:09 | Day surgery (SDC) | payer MEDICAID, SELFPAY ==
--- NOTE | 2024-03-30 14:40 | P.CONAN_ITS ---
Documented by User: Mayra Espinoza NP 03/31/24 11:44 HPI - Anesthesia Eval Consult details Narrative: 38yo F for Left C4,C5,C6 Cervical Medial Branches RFA PMFSH Active Problems Active Problems: All Active Problems Left elbow pain (Acute) Numbness and tingling in left hand (Acute) Cubital tunnel syndrome on left (Acute) Trapezius muscle strain (Acute) Cervical spondylosis (Acute) Past Medical History Medical History delivery delivered GERD (gastroesophageal reflux disease) Hypothyroidism Depression Chronic low back pain Anemia Allergic rhinitis Asthma Surgical History Surgical History H/O bilateral breast reduction surgery Social History Social History Are you a primary transitional care nurse to a significant other at home: No Do you presently have visiting nurse or other home services: No Patient Tobacco Use Status: Former Tobacco user Use of substances other than those prescribed or required for medical reasons: No Have you been hit, kicked, punched, or otherwise hurt by someone within the past year? 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 Meds Allergies Allergy/AdvReac Type Severity Reaction Status Date / Time oxycodone Allergy Unknown Vomiting Verified 04/01/24 07:46 codeine AdvReac Unknown Itching Verified 04/01/24 07:46 FRUIT, SKINS Allergy Intermediate ITCHING Uncoded 02/18/24 17:36 Home Medications ?Medication ?Instructions ?Recorded ?Confirmed ?Last Taken ?Type acetaminophen 650 mg 650 mg PO Q6-8H PRN mild pain 06/23/23 04/01/24 Unknown History tablet,extended release albuterol sulfate 90 mcg/actuation 1 puff inhalation Q4H PRN Wheezing 06/23/23 04/01/24 Unknown History aerosol inhaler (Proventil HFA) ascorbic acid (vitamin C) 250 mg 250 mg PO BID 06/23/23 04/01/24 Unknown History tablet baclofen 10 mg tablet 10 mg PO TID PRN muscle spasm 06/23/23 04/01/24 Unknown History cholecalciferol (vitamin D3) 50 50 mcg PO DAILY 06/23/23 04/01/24 Unknown History mcg (2,000 unit) capsule (Vitamin D3) diclofenac sodium 1 % topical gel 2 g topical QID PRN pain 06/23/23 04/01/24 Unknown History docusate sodium 100 mg capsule 100 mg PO BID PRN constipation 06/23/23 04/01/24 Unknown History epinephrine 0.15 mg/0.3 mL mg IM DIRECTED SOB 06/23/23 Unknown History injection,auto-injector ferrous sulfate 325 mg (65 mg 325 mg PO BID 06/23/23 04/01/24 Unknown History iron) tablet (FeroSul) fluticasone propionate 50 2 spray intranasal DAILY 06/23/23 04/01/24 Unknown History mcg/actuation nasal spray,suspension ibuprofen 600 mg tablet 600 mg PO Q8H PRN moderate pain 06/23/23 04/01/24 Unknown History ketotifen fumarate 0.025 % (0.035 1 drp ophthalmic (eye) BID PRN itch 06/23/23 04/01/24 Unknown History %) eye drops (Eye Itch Relief) levothyroxine 50 mcg tablet 50 mcg PO DAILY 06/23/23 04/01/24 Unknown History loratadine 10 mg tablet 10 mg PO DAILY 06/23/23 04/01/24 Unknown History meclizine 25 mg tablet 25 mg PO TID PRN dizziness 06/23/23 04/01/24 Unknown History melatonin 5 mg tablet 5 - 10 mg PO insomnia 06/23/23 Unknown History naproxen 500 mg tablet 500 mg PO mild pain 06/23/23 Unknown History omeprazole 20 mg capsule,delayed 20 mg PO BID 06/23/23 Unknown History release zolpidem 10 mg tablet 10 mg PO BEDTIME PRN insomnia 06/23/23 Unknown History Assessment and Plan Assessment Anesthesia Assessment: Chart Reviewed Documented by User: Frances Estrada MD 04/01/24 08:47 PMFSH Past Medical History Medical History delivery delivered GERD (gastroesophageal reflux disease) Hypothyroidism Depression Chronic low back pain Anemia Allergic rhinitis Asthma Surgical History Surgical History H/O bilateral breast reduction surgery History of Problems with Anesthesia: No Social History Social History Are you a primary transitional care nurse to a significant other at home: No Do you presently have visiting nurse or other home services: No Patient Tobacco Use Status: Former Tobacco user Use of substances other than those prescribed or required for medical reasons: No Have you been hit, kicked, punched, or otherwise hurt by someone within the past year? 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 Meds Allergies Allergy/AdvReac Type Severity Reaction Status Date / Time oxycodone Allergy Unknown Vomiting Verified 04/01/24 07:46 codeine AdvReac Unknown Itching Verified 04/01/24 07:46 FRUIT, SKINS Allergy Intermediate ITCHING Uncoded 02/18/24 17:36 Home Medications ?Medication ?Instructions ?Recorded ?Confirmed ?Last Taken ?Type acetaminophen 650 mg 650 mg PO Q6-8H PRN mild pain 06/23/23 04/01/24 Unknown History tablet,extended release albuterol sulfate 90 mcg/actuation 1 puff inhalation Q4H PRN Wheezing 06/23/23 04/01/24 Unknown History aerosol inhaler (Proventil HFA) ascorbic acid (vitamin C) 250 mg 250 mg PO BID 06/23/23 04/01/24 Unknown History tablet baclofen 10 mg tablet 10 mg PO TID PRN muscle spasm 06/23/23 04/01/24 Unknown History cholecalciferol (vitamin D3) 50 50 mcg PO DAILY 06/23/23 04/01/24 Unknown History mcg (2,000 unit) capsule (Vitamin D3) diclofenac sodium 1 % topical gel 2 g topical QID PRN pain 06/23/23 04/01/24 Unknown History docusate sodium 100 mg capsule 100 mg PO BID PRN constipation 06/23/23 04/01/24 Unknown History epinephrine 0.15 mg/0.3 mL mg IM DIRECTED SOB 06/23/23 Unknown History injection,auto-injector ferrous sulfate 325 mg (65 mg 325 mg PO BID 06/23/23 04/01/24 Unknown History iron) tablet (FeroSul) fluticasone propionate 50 2 spray intranasal DAILY 06/23/23 04/01/24 Unknown History mcg/actuation nasal spray,suspension ibuprofen 600 mg tablet 600 mg PO Q8H PRN moderate pain 06/23/23 04/01/24 Unknown History ketotifen fumarate 0.025 % (0.035 1 drp ophthalmic (eye) BID PRN itch 06/23/23 04/01/24 Unknown History %) eye drops (Eye Itch Relief) levothyroxine 50 mcg tablet 50 mcg PO DAILY 06/23/23 04/01/24 Unknown History loratadine 10 mg tablet 10 mg PO DAILY 06/23/23 04/01/24 Unknown History meclizine 25 mg tablet 25 mg PO TID PRN dizziness 06/23/23 04/01/24 Unknown History melatonin 5 mg tablet 5 - 10 mg PO insomnia 06/23/23 Unknown History naproxen 500 mg tablet 500 mg PO mild pain 06/23/23 Unknown History omeprazole 20 mg capsule,delayed 20 mg PO BID 06/23/23 Unknown History release zolpidem 10 mg tablet 10 mg PO BEDTIME PRN insomnia 06/23/23 Unknown History Exam Airway Mallampati Class: II TM Dist: >3cm Neck ROM: Full Loose/Missing/Broken Teeth: No Heart: RRR Lungs: CTA Assessment and Plan Assessment Anesthesia Assessment: Anesthesia Plan Discussed Final Anesthetic Review History of Problems with Anesthesia: No NPO: Yes ASA Class: II Final Preanesthetic Review: Meds/Allgs Chart Reviewed, Consent Obtained/Reviewed and Anes Risks/Benef Reviewed Patient Risk: Low Procedure Risk: Intermediate Anesthetic Plan Anesthetic Plan: MAC: Disposition: Standard PACU
[2024-04-01 07:26] VITALS: BMI 37.7
[2024-04-01 07:34] LABS: UPreg QC Valid YES; Urine Pregnancy NEGATIVE (NEGATIVE)
--- NOTE | 2024-04-01 07:44 | MHC.SHP ---
Pre-Procedural Eval Section A - 24 Hr Update-Section A only Date of Service: 04/01/24 The patient is an INPATIENT: No Changes since office visit: Yes Patient answered all questions The patient has been examined within 24 hours of the surgical procedure. The History & Physical has been completed within 30 days and I have reviewed it.: No Section B - Complete if H&P > 30 days Chief Complaint: Spondylosis without myelopathy or radiculopathy, Details of Present Illness: spondylosis cervical without myelo/radiculopathy Relevant Family History (Specify if Yes): No Relevant Social History: None Present Medications: see Short Stay Collaborative assessment Medical History: No relevant PMH History of Previous Operations: No relevant previous surgery Allergies: Allergies Allergy/AdvReac Type Severity Reaction Status Date / Time oxycodone Allergy Unknown Vomiting Verified 02/18/24 17:36 codeine AdvReac Unknown Itching Verified 02/18/24 17:36 FRUIT, SKINS Allergy Intermediate ITCHING Uncoded 02/18/24 17:36 Review of Systems Sugical H&P ROS: Negative: Cardiovascular, Neurological, Psychiatric, Hem-Onc, Allergic/Immunologic, Gastrointestinal, Genitourinary, Musculoskeletal, Integumentary and Eyes/Ears/Nose/Throat and Yes, Specify: Constitution (trivial obesity), Respiratory (asthma) and Endocrine (hypothyroidism) Exam Surgical H&P Exam: Normal: HEENT, Normal: Heart, Normal: Lungs, Normal: Extremities, Normal: Abdomen, Normal: Skin and Normal: Neurological Plan Diagnosis/Plan: Unchanged I have reviewed the history and physical and performed a pertinent physical examination on my patient. No changes have occurred unless specified. Time Spent With Patient Time: Total time managing care of this patient today ____ minutes.
[2024-04-01 08:07] VITALS: BP 130/77; PULSE 88; RESP 14; TEMP 36.6; O2SAT 98
[2024-04-01] MEDS: Lactated Ringers 1,000 ML 100 ML IVCONT (08:09)
[2024-04-01 09:50] VITALS: BP 140/70; PULSE 76; RESP 18; TEMP 36.6; O2SAT 97
--- NOTE | 2024-04-01 09:54 | P.BOP_ITS ---
Brief Operative Note Date of Service: 04/01/24 Pre-op diagnosis: Spondylosis cervical spine without myelopathy or radiculopathy Post-op diagnosis: same Procedure: Radiofrequency ablation of C4-C5 C6 medial branches on the left. Surgeon: Tito Middleton MD Anesthesia: MAC Was an Application Support Administrator used for this Procedure?: No Estimated blood loss (mL): 2 Condition: stable Disposition: PACU
--- NOTE | 2024-04-01 09:55 | P.OP_ITS ---
Operative Note Operative Note Date of Service: 04/01/24 Narrative: Radiofrequency ablation of C4-C5 C6 medial branches on the left. After explaining informed consent delineating risks and benefits of the patient including risk of bleeding, infection , peripheral nerve damage, spinal cord damage, headache the patient was taken to the operating room and was positioned prone on the operating table with support under her chest. [place] [employer] monitors were applied and patient was minimally sedated. She remained awake throughout the procedure. She was able to answer questions and respond to requests. Time-out was performed delineating name date of of the procedure, allergies of the patient risk for DVT prophylaxis risk of fire. The patient is upper back and posterior neck were prepped with ChloraPrep and draped with sterile self adhesive utility towels. Sterilely draped C-arm was brought over the operating field and sq picture of the cervical spine was delineated on the screen. The point of interest were delineated on the lateral masses of the C4, C5, C6 vertebra on the left. The waist line of the lateral masses were chosen as the target of the needle positioned. 18 gauge 100 mm radiofrequency cannulas were inserted through the skin through the skin wheals which were raised with mixture of lidocaine 2% and bupivacaine 0.5% one-to-one. They were advanced toward the point of interest in tunnel vision fashion. Lateral view were obtained and position of the radiofrequency cannulas were deemed satisfactory. After that the trial was performed with each cannula stimulating at 1 and 2 milliamperes for motor stimulation. Patient denies stimulation of the arm forearm or shoulder on any of the stimulation. After that the nitinol electrodes were withdrawn, the cannulas were injected with 1-2 cc of mixture of lidocaine 2% and bupivacaine 0.5% one-to-one with trace amount of Kenalog. After that the nitinol electrodes were reinserted into the cannulas and energy was applied for 90 seconds at 89 degrees centigrade. Upon completion of the energy application the cannulas were withdrawn pressure was applied and after that sterile dressing was applied. Patient tolerated procedure well she was taken outside of the operating room to recovery room where she recovered uneventfully.
[2024-04-01 10:05] VITALS: BP 142/80; PULSE 73; RESP 18; O2SAT 98
[2024-04-01 10:20] VITALS: BP 140/82; PULSE 68; RESP 18; TEMP 36.6; O2SAT 98
== END 2024-04-01 10:37 | disposition home or self-care (01) ==
PROVIDERS: Nurse Practitioner; PCP Family Medicine; Visit Provider Anesthesiology
PROC: (CPT 64633; principal; 2024-04-01 08:30)
DX: M47.812 Spondylosis without myelopathy or radiculopathy, cervical region (principal); G89.29 Other chronic pain; M54.50 Low back pain, unspecified; J45.909 Unspecified asthma, uncomplicated; K21.9 Gastro-esophageal reflux disease without esophagitis; E03.9 Hypothyroidism, unspecified; F32.A Depression, unspecified; Z88.5 Allergy status to narcotic agent; Z87.891 Personal history of nicotine dependence
CPT/HCPCS: 64633; 64634; 81025; J0665; J2003; J2250; J3010; J3301; Q9967

== ENCOUNTER → 2024-04-01 07:09 | Outpatient (BNV) | payer MEDICAID, SELFPAY | PROVIDERS: PCP Family Medicine; Visit Provider Anesthesiology | DX: M47.812 Spondylosis without myelopathy or radiculopathy, cervical region (principal) | CPT/HCPCS: 64633; 64634 ==

== ENCOUNTER 2024-05-06 09:22 | Outpatient (AMB) | payer MEDICAID, SELFPAY ==
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
[2024-05-06 09:33] VITALS: BP 108/67; PULSE 73; O2SAT 97; BMI 37.9
== END 2024-05-06 09:42 | disposition home or self-care (01) ==
PROVIDERS: PCP Family Medicine; Visit Provider Registered Nurse Emergency
DX: G56.22 Lesion of ulnar nerve, left upper limb (principal); M47.812 Spondylosis without myelopathy or radiculopathy, cervical region; S46.819A Strain of other muscles, fascia and tendons at shoulder and upper arm level, unspecified arm, initial encounter
CPT/HCPCS: 99213

== ENCOUNTER → 2024-05-06 09:22 | Outpatient (BNVA) | payer MEDICAID, SELFPAY | PROVIDERS: PCP Family Medicine; Visit Provider Registered Nurse Emergency | DX: S46.819D Strain of other muscles, fascia and tendons at shoulder and upper arm level, unspecified arm, subsequent encounter (principal); G56.22 Lesion of ulnar nerve, left upper limb; M47.812 Spondylosis without myelopathy or radiculopathy, cervical region | CPT/HCPCS: 99212 ==

== ENCOUNTER 2024-06-02 15:20 | Outpatient (REF) | payer MEDICAID, SELFPAY ==
--- NOTE | 2024-06-02 15:24 | EMG_ITS ---
Chief complaint: Left lower back pain radiating to buttocks and foot, tingling on left foot Reason for referral: Evaluate for neuropathy versus radiculopathy Referred by: Dr. Byrd Procedure done: Left lower extremity NCS/EMG Precautions and/or limitations: None The limb temperature was monitored continuously and remained between 32-36 degrees C during the performance of the NCS. Nerve Conduction Studies Anti Sensory Summary Table ?Stim Site NR Onset (ms) Norm Onset (ms) Peak (ms) Norm Peak (ms) O-P Amp (?V) Norm O-P Amp Site1 Site2 Delta-0 (ms) Dist (cm) Elbert (m/s) Norm Elbert (m/s) Left Sural Anti Sensory (Lat Mall) Calf ? 2.3 3.3 <4.0 14.2 >5.0 Calf Lat Mall 2.3 14.0 61 Motor Summary Table ?Stim Site NR Onset (ms) Norm Onset (ms) O-P Amp (mV) Norm O-P Amp iAmp (mV) Amp (1st) (%) Site1 Site2 Delta-0 (ms) Dist (cm) Elbert (m/s) Norm Elbert (m/s) Left Peroneal Motor (Ext Dig Brev) Ankle ? 2.9 <4.0 12.2 >2.5 14.6 100.0 Ankle Ext Dig Brev 2.9 0.0 B Fib ? 8.4 10.8 12.9 88.5 B Fib Ankle 5.5 28.5 52 >40 Poplt ? 9.0 10.6 12.7 86.9 Poplt B Fib 0.6 5.0 83 >40 Left Tibial Motor (Abd Gresham Brev) Ankle ? 3.0 <5 29.4 >2.5 39.3 100.0 Ankle Abd Gresham Brev 3.0 0.0 Knee ? 9.5 16.9 22.3 57.5 Knee Ankle 6.5 32.0 49 >40 EMG ?Side Muscle Nerve Root Ins Act Fibs Psw Amp Dur Poly Recrt Int Pat Comment Left AbdHallucis MedPlantar S1-2 Incr 1+ 1+ Nml Nml 0 Nml Complete Left AntTibialis Dp Br Peron L4-5 Nml Nml Nml Nml Nml 0 Nml Complete Left PostTibialis Tibial L5, S1 Nml Nml Nml Nml Nml 0 Nml Complete Left MedGastroc Tibial S1-2 Nml Nml Nml Nml Nml 0 Nml Complete Left VastusMed Femoral L2-4 Nml Nml Nml Nml Nml 0 Nml Complete Paraspinal EMG ?Side Muscle Nerve Root Ins Act Fibs Psw Comment Left Lumbar Upper Rami Nml Nml Nml Left Lumbar Mid Rami Nml Nml Nml Left Lumbar Lower Rami Incr 1+ 1+ FINDINGS: All motor and sensory nerves tested showed normal latencies, amplitudes and conduction velocities. Concentric needle EMG was performed in selected muscles of the left lower extremity and lumbar paraspinals. Study revealed signs of electric abnormalities as shown in the table above. Left AH showed increased insertional activity, PSWs and fibrillations. Left lower lumbar paraspinals showed increased insertional activity, PSWs and fibrillations. IMPRESSION: 1. This is an abnormal study. 2. There is electrodiagnostic evidence suggestive for left S1 radiculopathy. 3. There is no electrodiagnostic evidence for peroneal neuropathy, tibial neuropathy. lumbosacral plexopathy, or peripheral neuropathy. Thank you for your kind referral. Ema Shepard MD, SADI Board Certified, [place] [employer] and [employer] (ABPMR) Board Certified, [place] [employer] (ABEM) CODIN [id number] [facility]
== END 2024-06-02 15:21 | disposition home or self-care (01) ==
LOC: HO.NEURO 15:20
PROVIDERS: PCP Family Medicine; Visit Provider Family Medicine
DX: M79.605 Pain in left leg (principal); R20.0 Anesthesia of skin
CPT/HCPCS: 95886; 95908

== ENCOUNTER → 2024-06-02 15:24 | Outpatient (BNV) | payer MEDICAID, SELFPAY | PROVIDERS: PCP Family Medicine; Visit Provider Physical Medicine & Rehabilitation | DX: M54.16 Radiculopathy, lumbar region (principal) | CPT/HCPCS: 95886; 95908 ==

== ENCOUNTER 2024-06-16 09:19 | Outpatient (REF) | payer MEDICAID, SELFPAY | END 2024-06-16 09:20 | disposition home or self-care (01) | LOC: HO.SH 09:19 | PROVIDERS: Visit Provider Family Medicine | DX: Z01.118 Encounter for examination of ears and hearing with other abnormal findings (principal); H90.41 Sensorineural hearing loss, unilateral, right ear, with unrestricted hearing on the contralateral side; H93.12 Tinnitus, left ear | CPT/HCPCS: 92557; 92567; 92588 ==

== ENCOUNTER 2024-10-03 10:00 | Outpatient (RCR) | payer MEDICAID, SELFPAY | END 2024-10-03 10:32 | disposition home or self-care (01) | LOC: HO.PTCHIC 10:00 | PROVIDERS: PCP Family Medicine; Visit Provider Family Medicine | DX: M54.6 Pain in thoracic spine (principal) | CPT/HCPCS: 97110; 97161 ==

== ENCOUNTER 2025-01-03 17:37 | Emergency (ER) | payer MEDICAID, SELFPAY ==
[2025-01-03 17:57] VITALS: BP 125/74; PULSE 81; RESP 16; TEMP 36.8; O2SAT 99; BMI 37.7
--- NOTE | 2025-01-03 17:59 | ED_ITS ---
HPI - General Adult General Chief complaint: Upper Respiratory Symptoms Stated complaint: Coughing, sore throat Time Seen by Provider: 01/03/25 19:39 Source: patient Mode of arrival: ambulatory History of Present Illness ED Provider: Chris Maloney HPI narrative: 39 yold female healthy presents to the for sore throat, nasal congestion and coughing for the past couple of days. Patient denies any chest pain or shortness of breath. Related Data Home Medications ?Medication ?Instructions ?Recorded ?Confirmed acetaminophen 650 mg 650 mg PO Q6-8H PRN mild rosemary n 06/23/23 05/06/24 tablet,extended release albuterol sulfate 90 mcg/actuation 1 puff inhalation Q 4H PRN Wheezing 06/23/23 05/06/24 aerosol inhaler (Proventil HFA) ascorbic acid (vitamin C) 250 mg 250 mg PO BID 3 05/06/24 tablet baclofen 10 mg tablet 10 mg PO TID PRN muscle spas m 06/23/23 05/06/24 cholecalciferol (vitamin D3) 50 50 mcg PO DAILY 05/06/24 mcg (2,000 unit) capsule (Vitamin D3) diclofenac sodium 1 % topical gel 2 g topical QID PRN pain 06/23/23 05/06/24 docusate sodium 100 mg capsule 100 mg PO BID PRN const ipation 06/23/23 05/06/24 epinephrine 0.15 mg/0.3 mL mg IM DIRECTED SOB 06/2305/06/24 injection,auto-injector ferrous sulfate 325 mg (65 mg 325 mg PO BID 06/23/23 1 07/06/23 iron) tablet (FeroSul) fluticasone propionate 50 2 spray intranasal DAILY 05/06/24 mcg/actuation nasal spray,suspension ibuprofen 600 mg tablet 600 mg PO Q8H PRN moderate p ain 06/23/23 05/06/24 ketotifen fumarate 0.025 % (0.035 1 drp ophthalmic (ey e) BID PRN itch 06/23/23 05/06/24 %) eye drops (Eye Itch Relief) levothyroxine 50 mcg tablet 50 mcg PO DAILY 06/23/23 1 07/06/23 loratadine 10 mg tablet 10 mg PO DAILY 06/23/23 02/19 meclizine 25 mg tablet 25 mg PO TID PRN dizziness 1 08/24/22 05/06/24 melatonin 5 mg tablet 5 - 10 mg PO insomnia 05/06/24 naproxen 500 mg tablet 500 mg PO mild pain 06/23/23 05/06/24 omeprazole 20 mg capsule,delayed 20 mg PO BID 06/23/23 05/06/24 release zolpidem 10 mg tablet 10 mg PO BEDTIME PRN insomni a 06/23/23 05/06/24 Previous Rx's ?Medication ?Instructions ?Recorded tizanidine 2 mg tablet 2 mg PO TID PRN muscle spast icity 06/25/23 #90 tabs benzonatate 200 mg capsule 200 mg PO TID PRN cough #15 caps 01/03/25 Allergies Allergy/AdvReac Type Severity Reaction Status Date / Time oxycodone Allergy Unknown Vomiting Verified 01/03/25 17:58 codeine AdvReac Unknown Itching Verified 01/03/25 17:58 FRUIT, SKINS Allergy Intermediate ITCHING Uncoded 05/06/24 09:33 Review of Systems Review of Systems: coughing, sore throat, nasal congestion Yes all other systems are reviewed and are negative [facility] Past Medical History Medical History delivery delivered GERD (gastroesophageal reflux disease) Hypothyroidism Depression Chronic low back pain Anemia Allergic rhinitis Asthma Surgical History H/O bilateral breast reduction surgery Social History Social History Are you a primary director of managed care to a significant other at home: No Do you presently have visiting nurse or other home services: No Patient Tobacco Use Status: Former Tobacco user Advance Directives: No Advance Directives Information Provided: No Do you have a plan to hurt others: No Plan Current occupational status: employed 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, 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 Physical Exam ED Vital Signs: Vital Signs - 24 hr 01/03/25 17:57 Temperature 98.3 F Pulse Rate 81 Respiratory Rate 16 Blood Pressure 125/74 Pulse Oximetry 99 Oxygen Delivery Method Room Air BMI result Body Mass Index 37.7 Const General: cooperative, healthy appearing, comfortable, no acute distress, well developed, alert, awake and Physically active Orientation/consciousness: patient oriented x3 [facility] Head: Yes normal to inspection, Yes No palpable skull fracture present and Yes normocephalic Ears: hearing grossly normal bilaterally, external ears normal, TM's normal bilaterally, TM normal on the right, TM normal on the left, EAC's normal, mastoids normal and no periauricular adenopathy Throat: Yes posterior oropharynx normal, Yes tonsils normal and Yes uvula midline Eyes General: appearance normal, both eyes and all related structures Neck Neck: Yes normal visual inspection, Yes full ROM, Yes no lymphadenopathy, Yes no meningeal signs, Yes trachea midline, Yes supple, No anterior neck swelling and No tender Chest Chest palpation & inspection: normal inspection of the chest and normal palpation of entire chest wall Resp Effort & Inspection: normal respiratory effort and able to speak in complete sentences Auscultation: clear to auscultation bilaterally Cardio Jugular venous distension: no JVD Heart sounds: S1 normal heart sound present and S2 normal heart sound present GI Inspection: Yes normal to inspection Palpation (GI): Soft to palpation, not firm, nontender, no guarding and not rigid General: Yes no CVA tenderness Back/Spine/Pelvis Back: no CVA tenderness and No back tenderness Skin General skin exam: no rashes or lesions noted, elasticity normal and turgor normal Neuro General: patient oriented x3, gait normal, tone normal, moves all extremities, Normal light touch and pain sensation, no meningeal signs, no focal motor deficits, CN's II-XI intact bilaterally and normal sensation to monofilament Extrem General: Yes normal to inspection, Yes full ROM and Yes capillary refill normal Psych Appearance: grossly normal, well kempt and not disheveled Course Course Course Narrative: RME: 39-year-old female presents to the ED for coughing, sore throat, and chills. Patient denies any fever chest pain shortness of breath. SARs strep ordered Medical Decision Making Medical Decision Making [facility] Narrative: [age] year female presents to ED for nasal congestion, sore throat and coughing. Patient's COVID influenza RSV strep came back negative. Patient well-appearing. Lungs are clear. Not suspecting pneumonia, pneumothorax, PE, FL, pericarditis, CHF, myocarditis. Patient explained worrisome signs and informed to return to the ED immediately Differential Diagnosis Differential Diagnoses: The differential diagnosis associated with the presentation includes (COVID influenza RSV strep) Admission/Observation Consideration of admission/observation: Escalation of care including ad mission/observation considered Lab Data MDM Lab Attestation statement: I reviewed the patient's lab results. Labs: Lab Results 01/03/25 Range/Units 18:17 Influenza Type A (PCR) NEGATIVE (Negative) Influenza Type B (PCR) NEGATIVE (Negative) RSV RNA Qual (PCR) NEGATIVE (Negative) SARS-CoV-2 RNA (RT-PCR) NEGATIVE (Negative) S. pyogenes GrpA CHASTITY Negative (Negative) Independent Historian Clinical information obtained from an independent historian. History obtained from or confirmed by: Other (Patient) Prescription Management I considered prescription management with: Other (Coughing meds) Discharge Plan Discharge Clinical Impression: Upper respiratory infection Patient Disposition: Home, Self-Care Instructions: Upper Respiratory Infection (ED) Additional Instructions: Recommend follow up with primary care provider. Return to the ED immediately f or any chest pain, shortness of breath, coughing up blood, weakness, dizziness, or any other concerning symptoms. Prescriptions: New benzonatate 200 mg capsule 200 mg PO TID PRN (Reason: cough) Qty: 15 0RF No Action zolpidem 10 mg tablet 10 mg PO BEDTIME PRN (Reason: insomnia) acetaminophen 650 mg tablet extended release 650 mg PO Q6-8H PRN (Reason: mild pain) naproxen 500 mg tablet 500 mg PO ferrous sulfate [FeroSul] 325 mg (65 mg iron) tablet 325 mg PO BID loratadine 10 mg tablet 10 mg PO DAILY docusate sodium 100 mg capsule 100 mg PO BID PRN (Reason: constipation) levothyroxine 50 mcg tablet 50 mcg PO DAILY melatonin 5 mg tablet 5 - 10 mg PO diclofenac sodium 1 % gel 2 g topical QID PRN (Reason: pain) baclofen 10 mg tablet 10 mg PO TID PRN (Reason: muscle spasm) ketotifen fumarate [Eye Itch Relief] 0.025 % (0.035 %) drops 1 drp ophthalmic (eye) BID PRN (Reason: itch) omeprazole 20 mg capsule,delayed release(DR/EC) 20 mg PO BID ascorbic acid (vitamin C) 250 mg tablet 250 mg PO BID cholecalciferol (vitamin D3) [Vitamin D3] 50 mcg (2,000 unit) capsule 50 mcg PO DAILY fluticasone propionate 50 mcg/actuation spray,suspension 2 spray intranasal DAILY ibuprofen 600 mg tablet 600 mg PO Q8H PRN (Reason: moderate pain) meclizine 25 mg tablet 25 mg PO TID PRN (Reason: dizziness) epinephrine 0.15 mg/0.3 mL auto-injector IM DIRECTED albuterol sulfate [Proventil HFA] 90 mcg/actuation HFA aerosol inhaler 1 puff inhalation Q4H PRN (Reason: Wheezing) tizanidine 2 mg tablet 2 mg PO TID PRN (Reason: muscle spasticity) Qty: 90 0RF Referrals: Leandra Byrd DO [Primary Care Provider, Internal Medicine] - 2 days Referral Note: URI symptoms Clinical Impression: Upper respiratory infection Stand Alone Forms: Work/School Release Interventions: ED Discharge Assessment Last Done: 01/03/25 19:57 Discharge Date/Time: 01/03/25 19:58 Print Language: South Korean
[2025-01-03 18:39] LABS: IDNOW Serial# 55D5AD1C; Strep A Nucleic Acid Negative (Negative)
[2025-01-03 19:08] LABS: Resp Syncy Virus RNA Qual PCR NEGATIVE (Negative); SARS COV2 PCR INHOUSE NEGATIVE (Negative)
--- OUTSIDE RECORDS SUMMARY | 2025-01-03 19:49 | XMS_ITS | Encounter Summary ---
Author Organization [facility] Address [address] [place] [address] Phone Care Team Providers Care Nurse Rn Bsn Name Role Phone Izabel Gutierrez MD Primary Care Provider [phone] Encounter Details Date Type Department Care Team (Late st Contact Info) Description 02/12/2017 Conversion Encounter [facility] [place] [address] [place] [address] Social History Tobacco Use Types Packs/Day Years Used Date Smoking Tobacco: Never Assessed Comments Unknown Sex and Gender Information Value Date Recorded Sex Assigned at Not on file Legal Sex Female 4:13 PM EDT Gender Identity Not on file Sexual Orientation Not on file documented as of this encounter Plan of Treatment Not on file documented as of this encounter Visit Diagnoses Not on filedocumented in this encounter Care Teams Nurse Rn Bsn Relationship Specialty Start Date End Date Izabel Gutierrez MD [address] [place] [address] PCP - General 02/06/17 12/18/22 documented as of this encounter
--- OUTSIDE RECORDS SUMMARY | 2025-01-03 19:49 | XMS_ITS | Clinical Summary ---
Author Organization [facility] Address [address] [place] [address] Phone Care Team Providers Care Hat Brim And Crown Laminating Operator Name Role Phone Leandra Byrd DO Primary Care Provider [phone] Allergies Active Allergy Reactions Criticality Noted Date Comments Bee Pollen Anaphylaxis High 10/28/2020 Carrot Juice Rash Low 10/28/2020 Codeine Hives,Itching 03/22/2024 Oxycodone Nausea And Vomiting 09/20/2024 Potato Rash Low 10/28/2020 Medications omeprazole (PriLOSEC) [address] capsule Take 1 capsule (20 mg total) by mouth 2 (two) times a day before meals. Active levothyroxine (SYNTHROID, LEVOTHROID) 50 mcg tablet Take 1 tablet (50 mcg total) by mouth 1 (one) time each day. 4 Active loratadine (CLARITIN) 10 mg tablet Take 1 tablet (10 mg total) by mouth 1 (one) time each day. Active amitriptyline (ELAVIL) 10 mg tablet Take by mouth. at bedtime Active zolpidem (AMBIEN) 10 mg tablet Take 1 tablet (10 mg total) by mouth at bedtime as needed for sleep. Active SUMAtriptan (IMITREX) 50 mg tablet TAKE 1 TABLET BY MOUTH AT ONSET OF MIGRAINE. MAY REPEAT ONCE AFTER 2 HOURS IF NEEDED. DO NOT EXCEED 2 DOSES IN 24 hours Active melatonin 5 mg tablet TAKE 1 OR 2 TABLETS BY MOUTH EVERY DAY 3 HOURS BEFORE BEDTIME NEEDED for SLEEP 4 Active meclizine (ANTIVERT) 25 mg tablet Take by mouth. 4 Active fluticasone propionate (FLONASE) 50 mcg/actuation nasal spray Shake gently. Before first use, prime pump. After use, clean tip and replace cap.INSTILL 2 SPRAYS IN EACH NOSTRIL ONCE DAILY 4 Active Arnuity Ellipta 100 mcg/actuation blister with device inhaler INHALE 1 PUFF BY MOUTH EVERY DAY AT THE SAME TIME RINSE MOUTH AFTER USING Active ferrous sulfate 325 mg (65 mg elemental iron) tablet Take 1 tablet (325 mg total) by mouth 2 (two) times a day. Active diphenhydrAMINE (BENADRYL) 25 mg capsule Take 1 capsule (25 mg total) by mouth every 6 (six) hours if needed. Active diclofenac (VOLTAREN) 1 % topical gel APPLY 2 GRAMS TOPICALLY TO AFFECTED AREA(S) 4 TIMES A DAY IN THE MORNING, AT NOON, IN THE EVENING, AND AT BEDTIME NEEDED FOR PAIN Active lidocaine (LIDODERM) 5 % patch APPLY 3 PATCHES TOPICALLY TO AFFECTED AREA(S) ONCE DAILY LEAVE ON FOR 12 HOURS AND OFF FOR 12 HOURS Active diclofenac epolamine (FLECTOR) 1.3 % Apply topically. Active cholecalciferol (VITAMIN D-3) 50 mcg (2,000 unit) tablet Take by mouth. Active ascorbic acid (VITAMIN C) 250 mg tablet TAKE 1 TABLET BY MOUTH TWICE DAILY WITH Ferrous Sulfate Active albuterol HFA (PROAIR HFA ; PROVENTIL HFA ; VENTOLIN HFA) 90 mcg/actuation inhaler Inhale 2 puffs by mouth every 4 (four) hours if needed. Active albuterol 2.5 mg /3 mL (0.083 %) nebulizer solution 3 mL (2.5 mg total) Every 4 hours as needed. 4 02/23/20 25 Active acetaminophen (TYLENOL) 500 mg tablet Take 1 tablet (500 mg total) by mouth every 6 (six) hours if needed for moderate pain. Do not exceed 3 grams of Tylenol per day. 30 tablet 5 Active ondansetron ODT (ZOFRAN-ODT) 8 mg disintegrating tablet Dissolve 1 tablet (8 mg total) on top of the tongue every 8 (eight) hours if needed for nausea or vomiting. 20 tablet 5 Active HYDROcodone-acetam inophen (NORCO) 5-325 mg per tablet Take 1 tablet by mouth every 6 (six) hours if needed for severe pain for up to 12 doses. Max Daily Amount: 4 tablets 12 tablet 5 Active ibuprofen (ADVIL,MOTRIN) 600 mg tablet Take 1 tablet (600 mg total) by mouth 3 (three) times a day with meals. 30 each 5 Active Active Problems Problem Noted Date Diagnosed Date Surgery follow-up 11/28/2024 Cubital tunnel syndrome, left 06/10/2024 Bilateral carpal tunnel syndrome 06/10/2024 Encounters Date Type Department Care Team Description 12/22/2024 9:00 AM EDT Treatment [facility] [address] [place] [phone] Scout Cazares, TREVIÑO/L Cubital tunnel syndrome, left (Primary Dx) 12/20/2024 1:15 PM EDT Treatment [facility] [address] [phone] Scout Cazares, TREVIÑO/L Cubital tunnel syndrome, left (Primary Dx) 12/16/2024 12:30 PM EDT Treatment [facility] [address] [place] [phone] Scout Cazares, TREVIÑO/L Cubital tunnel syndrome, left (Primary Dx) 12/14/2024 9:30 AM EDT Treatment [facility] [address] [phone] Scout Cazares, TREVIÑO/L Cubital tunnel syndrome, left (Primary Dx) 12/07/2024 9:15 AM EDT Treatment [facility] [address] [phone] Kenji Barrientos, OT Cubital tunnel syndrome, left (Primary Dx) 12/05/2024 11:30 AM EDT Evaluation [facility] [address] [place] [phone] Kenji Barrientos, OT Cubital tunnel syndrome, left 12/05/2024 Plan of Care Documentation [facility] [address] [phone] 11/28/2024 11:30 AM EDT Office Visit Orthopedic [address] [phone] Jessica Bhardwaj MD Cubital tunnel syndrome, left (Primary Dx); Surgery follow-up 10/24/2024 2:15 PM EDT Office Visit Orthopedic [address] [phone] Angi Horton PA Surgery follow-up (Primary Dx) 10/12/2024 1:43 PM EDT Anesthesia Event [facility] [place] [address] [place] [phone] Jai Sun DO Korobkov, Vitaliy, DO 10/12/2024 12:00 PM EDT - 10/12/2024 2:30 PM EDT Surgery [facility] OR [address] [place] [phone] Jessica Bhardwaj MD DECOMPRESSION ULNAR NERVE on the left w/ transposition [91363 (CPT )] 10/12/2024 9:36 AM EDT - 10/12/2024 6:07 PM EDT Hospital Encounter [facility] [place] [address] [place] [phone] Jessica Bhardwaj MD Discharge Disposition: Home or Self Care 10/07/2024 8:30 AM EDT Consult Orthopedic Surgery [address] [phone] Jessica Bhardwaj MD Cubital tunnel syndrome, left (Primary Dx) from Last 3 Months Surgical History Surgery Date Site/Laterality Comments SECTION, LOW TRANSVERSE BREAST REDUCTION Bilateral ULNAR NERVE TRANSPOSITION 10/12/2024 Left fascial sling/transposition Medical History Medical History Date Comments Asthma DX:Asthma 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 Supraventricular tachycardia (CMS/HCC V24) DX:Supraventricular tachycardia (HCC) Paroxysmal atrial fibrillati on (CMS/HCC V24, CMS/HCC V28) DX:Paroxysmal atrial fibrill ation (HCC) Insomnia DX:Insomnia Anemia DX:Anemia Hyperthyroidism DX:Hyperthyroidi sm Depressive disorder DX:Depressiv e disorder Esophageal reflux DX:Esophageal reflux Arthritis Joint pain Hypertension Irregular heart beat Social History Tobacco Use Types Packs/Day Years Used Date Smoking Tobacco: Former Cigarettes Q uit: 06/29/2015 Smokeless Tobacco: Never Alcohol Use Standard Drinks/Week Comments Yes 2 (1 standard drink = 0.6 oz pur e alcohol) Interpersonal Safety Answer Date Record ed Physical Abuse 10/12/2024 Have you ever been verbally abused? Not on file 10/12/2024 Comments Unknown Sex and Gender Information Value Date Recorded Sex Assigned at Female 10/11/2024 9:38 AM EDT Legal Sex Female 11:41 AM EDT Gender Identity Female 10/11/2024 9:38 AM EDT Sexual Orientation Straight 10/11/2024 9: 38 AM EDT Obstetrics History Last Filed Vital Signs Vital Sign Reading Time Taken Comments Blood Pressure 137/76 10/12/2024 4:59 PM EDT Pulse 93 10/12/2024 4:59 PM EDT Temperature 36.2 C (97.2 F) 10/12/2024 4:59 PM EDT Respiratory Rate 20 10/12/2024 4:59 PM EDT Oxygen Saturation 97% 10/12/2024 4:59 PM EDT Inhaled Oxygen Concentration - - Weight 86.2 kg (190 lb) 11/28/2024 11:49 AM EDT Height 152.4 cm (5') 11/28/2024 11:49 AM EDT Body Mass Index 37.11 11/28/2024 11:49 AM EDT Plan of Treatment Upcoming Encounters Date Type Department Care Team (Late st Contact Info) Description 01/06/2025 11:15 AM EDT Office Visit Orthopedic Surgery - [place] [address] [phone] Jessica Bhardwaj MD [address] [phone] Health Maintenance Due Date Last Done Comments Cervical Cancer Screening: Pap Smear 2007 COVID-19 Vaccine ( season) 2024 09/11/2023, 04/10/2022, 06/17/2021, Additional history exists Social Influencers of Health Screening 04/10/2024 Influenza Vaccine (#1) 2025 , 05/07/2023, 04/10/2022, Additional history exists Depression Screening 07/29/2025 07/29/2024 Cholesterol Screening (Lipid Panel) 09/21/2028 09/22/2023 DTaP,Tdap,and Td Vaccines (11 - Td or Tdap) 07/29/2032 07/29/2022, 05/26/2016, 12/14/2013, Additional history exists HIB Vaccines Completed 07/03/1988, 07/03/1988 IPV Vaccines Completed 11/02/1990, 10/1988, 07/03/1988, Additional history exists Hepatitis B Vaccines Completed 08/21/1998, 03/01/1996, 01/25/1996 MMR Vaccines Completed 08/22/1998, 09/26/1997 Varicella Vaccines Aged Out 03/27/1999 No longer eligible based on patient's age to complete this topic Meningococcal ACWY Vaccine Aged Out 11/04/2005 N o longer eligible based on patient's age to complete this topic Pneumococcal Vaccine: Pediatrics (0 to 5 Years) and At-Risk Patients (6 to 49 Years) Completed 09/11/2023, 07/05/2010 HIV Screening Completed 09/22/2023 Hepatitis C Screening Completed 09/22/2023 HPV Vaccines Completed 02/23/2024, 12/27, 11/08/2012 Hepatitis A Vaccines Aged Out No long er eligible based on patient's age to complete this topic Meningococcal B Vaccine Aged Out No l onger eligible based on patient's age to complete this topic RSV Immunization Patients Under 20 months Aged Out No longer eligible based on patient's age to complete this topic Goals Goal Patient Goal Type Associated Problems Recent Progress Patient-Stated? Author Pt goal General Yes Kenji Barrientos, OT Note: To get better use of my left arm STG 4-6 visits General No Kenji Barrientos, OT Note: Patient will report <=6/10 soreness/tenderness in L elbow Patient will demo L elbow flexion AROM>= 130 for increased ease of donning a jacket Patient will demo L fire range technician strength >= 60# to be able to take a BP reading, Patient will demo improved functional use of L upper extremity as evidenced by Quick Dash score <= 45 to be able to sweep, and Patient will perform initial HEP MOD I LTG 12 visits Kenji Martini, OT Note: Patient will report <=3/10 tenderness/soreness in L elbow Patient will demo L elbow/L wrist AROM WFL for IADLs, Patient will demo L UE strength WFL for work tasks, Patient will demo improved functional use of L upper extremity as evidenced by Quick Dash score <= 35 to be able to perform work tasks, and Patient will perform HEP MOD I Procedures Procedure Name Priority Date/Time Associated Diagnosis Comments OXYGEN THERAPY, ADULT Routine 10/12/2024 4:16 PM EDT AZ NEUROPLASTY AND/OR TRANSPOSITION ULNAR NERVE AT ELBOW 10/12/2024 1:43 PM EDT Cubital tunnel syndrome, left POC PREGANCY, URINE SCREENING Routine 10/12/2024 10:04 AM EDT from Last 3 Months Results * POC , urine NO CHARGE screening manually resulted (10/12/2024 10:04 AM EDT) HCG, Ur POC Negative Negative POC hCG Int QC Pass? Yes Yes Urine Urine specimen obtained by clean catch procedure / Unknown 10/12/2024 10:04 AM EDT Jessica Bhardwaj MD POINT OF CARE TEST ENTER/EDIT ORDERABLES Final Result from Last 3 Months Insurance * Guarantor: Sarah Murphy Account Type Relation to Patient Date of Phone Billing Address Personal/Family Self [address] [place] [address] MEDICAID - [place] Advance Directives * Full Code - Default (Latest Code Status on File) Date Activated Date Inactivated Comments 10/12/2024 9:46 AM 10/12/2024 8:12 PM This is orde r is used when code status has not been discussed with the patient, or code status is otherwise unknown/unconfirmed To update the patient's code status, place a code status order. Do not modify or discontinue any currently active code status orders. Care Teams Hat Brim And Crown Laminating Operator Relationship Specialty Start Date End Date Leandra Byrd DO [address] [place] [address] PCP - General 09/12/11
[2025-01-03 19:57] VITALS: BP 125/74; PULSE 81; RESP 16; TEMP 36.8; O2SAT 99
== END 2025-01-03 19:58 | disposition home or self-care (01) ==
PROVIDERS: Physician Assistant; Emergency Provider Internal Medicine; PCP Family Medicine
DX: J06.9 Acute upper respiratory infection, unspecified (principal); J02.9 Acute pharyngitis, unspecified; R05.9 Cough, unspecified; Z03.818 Encounter for observation for suspected exposure to other biological agents ruled out; J45.909 Unspecified asthma, uncomplicated
CPT/HCPCS: 87637; 87651; 99282; 99283

== ENCOUNTER 2025-02-15 14:44 | Emergency (ER) | payer MEDICAID, SELFPAY ==
[2025-02-15 15:22] VITALS: BP 144/78; PULSE 71; RESP 16; TEMP 36.5; O2SAT 98; BMI 38.0
--- NOTE | 2025-02-15 15:24 | ED.GENADULT ---
HPI - General Adult General Chief complaint: General Medical Stated complaint: uti? yeast infection? back pain Time Seen by Provider: 02/15/25 18:39 Source: patient, RN notes reviewed and old records reviewed Mode of arrival: ambulatory Limitations: no limitations History of Present Illness ED Provider: Kaylee HPI narrative: 39-year-old female presents for evaluation of lower abdominal pain, bilateral flank pain and burning with urination. Symptoms started 2 weeks ago. She also reports some vaginal itching. She reports that she is not sexually active in his not concerned for sexually transmitted infections pain Denies any fevers, chills pain Denies any nausea vomiting She is concerned that she has either a UTI or a yeast infection Related Data Home Medications ?Medication ?Instructions ?Recorded ?Confirmed acetaminophen 650 mg 650 mg PO Q6-8H PRN mild pain 06/23/23 05/06/24 tablet,extended release albuterol sulfate 90 mcg/actuation 1 puff inhalation Q4H PRN Wheezing 06/23/23 05/06/24 aerosol inhaler (Proventil HFA) ascorbic acid (vitamin C) 250 mg 250 mg PO BID 06/23/23 05/06/24 tablet baclofen 10 mg tablet 10 mg PO TID PRN muscle spasm 06/23/23 05/06/24 cholecalciferol (vitamin D3) 50 50 mcg PO DAILY 06/23/23 05/06/24 mcg (2,000 unit) capsule (Vitamin D3) diclofenac sodium 1 % topical gel 2 g topical QID PRN pain 06/23/23 05/06/24 docusate sodium 100 mg capsule 100 mg PO BID PRN constipation 06/23/23 05/06/24 epinephrine 0.15 mg/0.3 mL mg IM DIRECTED SOB 06/23/23 05/06/24 injection,auto-injector ferrous sulfate 325 mg (65 mg 325 mg PO BID 06/23/23 05/06/24 iron) tablet (FeroSul) fluticasone propionate 50 2 spray intranasal DAILY 06/23/23 05/06/24 mcg/actuation nasal spray,suspension ibuprofen 600 mg tablet 600 mg PO Q8H PRN moderate pain 06/23/23 05/06/24 ketotifen fumarate 0.025 % (0.035 1 drp ophthalmic (eye) BID PRN itch 06/23/23 05/06/24 %) eye drops (Eye Itch Relief) levothyroxine 50 mcg tablet 50 mcg PO DAILY 06/23/23 05/06/24 loratadine 10 mg tablet 10 mg PO DAILY 06/23/23 05/06/24 meclizine 25 mg tablet 25 mg PO TID PRN dizziness 06/23/23 05/06/24 melatonin 5 mg tablet 5 - 10 mg PO insomnia 06/23/23 05/06/24 naproxen 500 mg tablet 500 mg PO mild pain 06/23/23 05/06/24 omeprazole 20 mg capsule,delayed 20 mg PO BID 06/23/23 05/06/24 release zolpidem 10 mg tablet 10 mg PO BEDTIME PRN insomnia 06/23/23 05/06/24 Previous Rx's ?Medication ?Instructions ?Recorded tizanidine 2 mg tablet 2 mg PO TID PRN muscle spasticity 06/25/23 #90 tabs benzonatate 200 mg capsule 200 mg PO TID PRN cough #15 caps 01/03/25 cefuroxime axetil 250 mg tablet 250 mg PO Q12H #10 tabs 02/15/25 fluconazole 150 mg tablet 150 mg PO DAILY #1 tab 02/15/25 phenazopyridine 200 mg tablet 200 mg PO TID PRN pain 6 doses #6 02/15/25 (Pyridium) tabs Allergies Allergy/AdvReac Type Severity Reaction Status Date / Time oxycodone Allergy Unknown Vomiting Verified 02/15/25 15:24 codeine AdvReac Unknown Itching Verified 02/15/25 15:24 FRUIT, SKINS Allergy Intermediate ITCHING Uncoded 05/06/24 09:33 Review of Systems Constitutional: Constitutional: Denies body ache(s), Denies chills and Denies fever(s) Eyes: Eyes: Denies blurry vision ENT: Denies dry mouth Cardiovascular: Cardiovascular: Denies chest pain and Denies dyspnea on exertion Respiratory: Respiratory: Denies cough and Denies dyspnea on exertion Gastrointestinal: Gastrointestinal: Denies abdominal pain, Denies nausea and Denies vomiting Genitourinary: Genitourinary: Reports difficulty voiding, Reports dysuria, Reports pelvic pain, Reports flank pain, Denies vaginal discharge and Reports vaginal pruritus Musculoskeletal: Musculoskeletal: Denies back pain Integumentary/Breasts: Skin/Breast: Denies rash Psychiatric: Psychiatric: Denies anxiety PMFSH Past Medical History Medical History delivery delivered GERD (gastroesophageal reflux disease) Hypothyroidism Depression Chronic low back pain Anemia Allergic rhinitis Asthma Surgical History H/O bilateral breast reduction surgery Social History Social History Are you a primary med care manager to a significant other at home: No Do you presently have visiting nurse or other home services: No Patient Tobacco Use Status: Former Tobacco user Current occupational status: employed 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, 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 Physical Exam ED Vital Signs: Vital Signs - 24 hr 02/15/25 15:22 Temperature 97.7 F Pulse Rate 71 Respiratory Rate 16 Blood Pressure 144/78 H Pulse Oximetry 98 Oxygen Delivery Method Room Air BMI result Body Mass Index 38.0 Const General: healthy appearing, comfortable, no acute distress, alert and awake Nutritional Appearance: well nourished Orientation/consciousness: patient oriented x3 HENMT Head: Yes normocephalic and Yes atraumatic Eyes Eyelids: Yes eyelids normal Conjunctivae: conjunctivae normal Sclerae: sclerae normal Corneas: corneas normal Pupils: Equal, round and reactive pupils present EOM: EOMs intact bilaterally Neck Neck: Yes full ROM Resp Effort & Inspection: normal respiratory effort, able to speak in complete sentences and not labored GI Inspection: No distended Palpation (GI): Soft to palpation, not firm, nontender, no guarding and not rigid General: Yes no CVA tenderness Back/Spine/Pelvis Back: no CVA tenderness Skin General skin exam: elasticity normal Neuro General: patient oriented x3 Cranial nerves: Yes Equal, round and reactive pupils present and Yes Bilaterally intact EOM present Cognition (Neuro): normal cognition Extrem Other: Moving all extremities well without any obvious deformities Course Course Course Narrative: RME, this is a rapid medical exam performed by Stephen Page please refer to primary provider for complete H&P- 39 old female presents for evaluation of burning with urination, itching over the last few days. She reports that she is not sexually active and not concerned for sexually transmitted infections Medical Decision Making Medical Decision Making MDM Narrative: 31 old female presents for evaluation of vaginal itching and painful urination. Her symptoms are most consistent with either a UTI or a yeast infection. She is not concerned for sexually transmitted infections. She is not . Urinalysis was positive for leukocyte esterase and white blood cells. We will treat her for a UTI with cefuroxime b.i.d. x5 days and also cover her with fluconazole. She is afebrile, no CVA tenderness on exam, no evidence of systemic infection. She declined pelvic examination at this time Differential Diagnosis Differential Diagnoses: The differential diagnosis associated with the presentation includes UTI Candidiasis Pelvic pain Flank pain Pyelonephritis Lab Data Labs: Lab Results 02/15/25 Range/Units 15:32 Urine Color Yellow Urine Appearance Clear Urine pH 5.5 (5.0-9.0) Ur Specific [place] 1.015 (1.005-1.025) Urine Protein Negative (Neg-Trace) mg/dL Urine Glucose (UA) Negative (Negative) mg/dL Urine Ketones Negative (Negative) mg/dL Urine Blood Negative (Negative) Urine Nitrite Negative (Negative) Ur Leukocyte Esterase Large (3+) H (Negative) Urine RBC 0-2 (0-2) /HPF Urine WBC 21-50 H (0-5) /HPF Ur Squamous Epith Cells 3-5 (0-2) /HPF Urine Bacteria None Seen (None Seen) Hyaline Casts 0-2 (0-2) /LPF Urine Test NEGATIVE (NEGATIVE) Discharge Plan Discharge Clinical Impression: UTI (urinary tract infection) Patient Disposition: Home, Self-Care Instructions: Urinary Tract Infection in Women (ED) Additional Instructions: You did have a positive UTI on urinalysis. Take the cefuroxime twice daily for 5 days Take the Diflucan after you complete the cefuroxime course Take the Pyridium as needed for bladder pain and discomfort Hydrate well. Return for new or worsening symptoms Prescriptions: New cefuroxime axetil 250 mg tablet 250 mg PO Q12H Qty: 10 0RF fluconazole 150 mg tablet 150 mg PO DAILY Qty: 1 0RF Rx Instructions: Take after completing antibiotic course phenazopyridine [Pyridium] 200 mg tablet 200 mg PO TID PRN (Reason: pain) Qty: 6 0RF No Action benzonatate 200 mg capsule 200 mg PO TID PRN (Reason: cough) Qty: 15 0RF zolpidem 10 mg tablet 10 mg PO BEDTIME PRN (Reason: insomnia) acetaminophen 650 mg tablet extended release 650 mg PO Q6-8H PRN (Reason: mild pain) naproxen 500 mg tablet 500 mg PO ferrous sulfate [FeroSul] 325 mg (65 mg iron) tablet 325 mg PO BID loratadine 10 mg tablet 10 mg PO DAILY docusate sodium 100 mg capsule 100 mg PO BID PRN (Reason: constipation) levothyroxine 50 mcg tablet 50 mcg PO DAILY melatonin 5 mg tablet 5 - 10 mg PO diclofenac sodium 1 % gel 2 g topical QID PRN (Reason: pain) baclofen 10 mg tablet 10 mg PO TID PRN (Reason: muscle spasm) ketotifen fumarate [Eye Itch Relief] 0.025 % (0.035 %) drops 1 drp ophthalmic (eye) BID PRN (Reason: itch) omeprazole 20 mg capsule,delayed release(DR/EC) 20 mg PO BID ascorbic acid (vitamin C) 250 mg tablet 250 mg PO BID cholecalciferol (vitamin D3) [Vitamin D3] 50 mcg (2,000 unit) capsule 50 mcg PO DAILY fluticasone propionate 50 mcg/actuation spray,suspension 2 spray intranasal DAILY ibuprofen 600 mg tablet 600 mg PO Q8H PRN (Reason: moderate pain) meclizine 25 mg tablet 25 mg PO TID PRN (Reason: dizziness) epinephrine 0.15 mg/0.3 mL auto-injector IM DIRECTED albuterol sulfate [Proventil HFA] 90 mcg/actuation HFA aerosol inhaler 1 puff inhalation Q4H PRN (Reason: Wheezing) tizanidine 2 mg tablet 2 mg PO TID PRN (Reason: muscle spasticity) Qty: 90 0RF Stand Alone Forms: Work/School Release Interventions: ED Discharge Assessment Last Done: 02/15/25 18:55 Discharge Date/Time: 02/15/25 18:56 Print Language: Haitian
[2025-02-15 15:56] LABS: Appearance Urine Clear; Glucose Urine UA Negative (Negative); PH 5.5 (5.0-9.0); Specific Gravity - Urine 1.015 (1.005-1.025); UMIC TRIGGER UACC YES
[2025-02-15 15:57] LABS: UPreg QC Valid YES
[2025-02-15 16:01] LABS: UACC Culture Trigger YES
[2025-02-15 18:55] VITALS: BP 144/78; PULSE 71; RESP 16; TEMP 36.5; O2SAT 98
== END 2025-02-15 19:07 | disposition home or self-care (01) ==
PROVIDERS: Physician Assistant; Emergency Provider Emergency Medicine; PCP Family Medicine
DX: R10.9 Unspecified abdominal pain (principal); M54.9 Dorsalgia, unspecified; N39.0 Urinary tract infection, site not specified
CPT/HCPCS: 81001; 81025; 87086; 99282; 99283

== ENCOUNTER 2025-03-08 19:28 | Outpatient (REF) | payer MEDICAID, SELFPAY ==
--- OUTSIDE RECORDS SUMMARY | 2025-03-08 09:30 | XMS_ITS | Encounter Summary ---
Author Organization [employer] Address [address] [place] [address] Care Team Providers Care Dining Room Captain Name Role Phone Leandra Byrd DO Primary Care Provider [phone] Ivonne Ledesma RN Unavailable [phone] Ada Rincon Unavailable Encounter Details Date Type Department Care Team (Latest Contact Info) Description 03/08/2025 9:30 AM EDT Office Visit [facility] [address] [place] [address] Leandra Byrd DO [address] [place] [address] Routine history and physical examination of adult (Primary Dx); Mild persistent asthma without complication; Chronic allergic rhinitis; Hypothyroidism, unspecified type; Anemia, unspecified type; Chronic gastroesophageal reflux disease; Chronic migraine; Chronic neck pain; Chronic bilateral low back pain with sciatica, sciatica laterality unspecified; Cubital tunnel syndrome on left; Hearing loss of left ear, unspecified hearing loss type; Upper back pain; Macromastia; Anxiety and depression; Other insomnia; Breast pain, left; BMI 38.0-38.9,adult; Dietary counseling; Exercise counseling; Vaginal itching Social History Tobacco Use Types Packs/Day Years Used Date Smoking Tobacco: Former Cigarettes Passive Smoke Exposure: Past Smokeless Tobacco: Never Alcohol Use Standard Drinks/Week Comments Never 0 (1 standard drink = 0.6 oz pur e alcohol) Depression Answer Date Recorded Patient Health Questionnaire-9 Score 8 03/08/2025 Patient Health Questionnaire-9 Score 8 03/08/2025 Last PHQ-9: Questionnaire Data Not on file 0 03/08/2025 Housing Stability Answer Date Recorded What is your housing situation today? I have brayden sing 07/29/[address] you li ve. Do you have problems with any of the following? None of the above 07/29/2024 Food Insecurity Answer Date Recorded Within the past 12 months, y ou worried that your food would run out before you got money to buy more: Never True 07/29/2024 Within the past 12 months,th e food you bought just didn't last and you didn't have enough money to get more: Never True Transportation Answer Date Recorded In the past 12 months, has l ack of transportation kept you from medical appts, meetings, work or from getting things needed for daily living? No 07/29/2024 Utilities Answer Date Recorded In the past 12 months, has t he electric, gas, oil or water company threatened to shut off services in your home? No 07/29/2024 Depression Answer Date Recorded Patient Health Questionnaire-2 Score 2 03/08/2025 Internet Access Answer Date Recorded Internet Access Q1 Yes 07/29/2024 Internet Access Q2 Not on file 07/29/2024 Comments No Sex and Gender Information Value Date Recorded Sex Assigned at Female 04/28/2022 10:20 AM EDT Legal Sex Female 10:20 AM EDT Gender Identity Female 04/28/2022 10:20 AM EDT Sexual Orientation Straight 04/28/2022 10 :20 AM EDT documented as of this encounter Last Filed Vital Signs Vital Sign Reading Time Taken Comments Blood Pressure 128/78 03/08/2025 9:41 AM EDT Pulse 93 03/08/2025 9:41 AM EDT Temperature 36.5 C (97.7 F) 03/08/2025 9:41 AM EDT Respiratory Rate 22 03/08/2025 9:41 AM EDT Oxygen Saturation 99% 03/08/2025 9:41 AM EDT Inhaled Oxygen Concentration - - Weight 89 kg (196 lb 4 oz) 03/08/2025 9:41 AM ED T Height 152.4 cm (5') 03/08/2025 9:41 AM EDT Body Mass Index 38.33 03/08/2025 9:41 AM EDT documented in this encounter Functional Status * Over the past 2 weeks, how often have you been bothered by any of the following problems? Question Answer Date of Assessment Author Patient Health Questionnaire -2 Score 2 03/08/2025 11:03 AM Sarah Mcadams MA * Little interest or pleasure in doing things Answer Date of Assessment Author Several days 03/08/2025 11:03 AM Sarah Mcadams MA * Feeling down, depressed, or hopeless Answer Date of Assessment Author Several days 03/08/2025 11:03 AM Sarah Mcadams MA * Trouble falling or staying asleep, or sleeping too much Answer Date of Assessment Author More than half the days 03/08/2025 11:03 AM Sarah Mcadams MA * Feeling tired or having little energy Answer Date of Assessment Author Several days 03/08/2025 11:03 AM Sarah Mcadams MA * Poor appetite or overeating Answer Date of Assessment Author Several days 03/08/2025 11:03 AM Sarah Mcadams MA * Feeling bad about yourself - or that you are a failure or have let yourself or your family down Answer Date of Assessment Author Not at all 03/08/2025 11:03 AM Sarah Mcadams MA * Trouble concentrating on things, such as reading the newspaper or watching television Answer Date of Assessment Author Several days 03/08/2025 11:03 AM Sarah Mcadams MA * Moving or speaking so slowly that other people could have noticed? Or the opposite - being so fidgety or restless that you have been moving around a lot more than usual. Answer Date of Assessment Author Several days 03/08/2025 11:03 AM Sarah Mcadams MA * Thoughts that you would be better off or hurting yourself in some way Answer Date of Assessment Author Not at all 03/08/2025 11:03 AM Sarah Mcadams MA * Patient Health Questionnaire-9 Score Answer Date of Assessment Author 8 03/08/2025 11:03 AM Sarah Mcadams MA * How difficult have these problems made it for you to do your work, take care of things at home, or get along with other people? Answer Date of Assessment Author Not difficult at all 03/08/2025 11:03 AM EDT Sarah Pulido MA * Over the last 2 weeks, how often have you been bothered by any of the following problems? Question Answer Date of Assessment Author Feeling nervous, anxious, or on edge 2 03/08/2025 11:04 AM EDT Sarah Jeffery MA Not being able to stop or co ntrol worrying 2 03/08/2025 11:04 AM EDT Sarah Jeffery MA Worrying too much about diff erent things 2 03/08/2025 11:04 AM EDT Sarah Jeffery MA Trouble relaxing 2 03/08/2025 11:04 AM EDT Sarah Jeffery MA Being so restless that it is hard to sit still 2 03/08/2025 11:04 AM EDT Sarah Jeffery MA Becoming easily annoyed or irritable 1 03/08/2025 11:04 AM EDT Sarah Jeffery MA Feeling afraid as if somethi ng awful might happen 0 03/08/2025 11:04 AM EDT Sarah Jeffery MA SANDOR-7 Total Score 11 03/08/2025 11:04 AM EDT Sarah Jeffery MA documented as of this encounter Plan of Treatment Scheduled Orders Name Type Priority Associated Diagnoses Orde r Schedule Bacterial Vaginosis Panel Microbiology Routine Vaginal itching Ordered: 03/08/2025 documented as of this encounter Visit Diagnoses Diagnosis Routine history and physical examination of adult- Primary Mild persistent asthma without complication Chronic allergic rhinitis Hypothyroidism, unspecified type Anemia, unspecified type Chronic gastroesophageal reflux disease Chronic migraine Chronic neck pain Cervicalgia Chronic bilateral low back pain with sciatica, sciatica laterality unspecified Cubital tunnel syndrome on left Hearing loss of left ear, unspecified hearing loss type Upper back pain Unspecified backache Macromastia Hypertrophy of breast Anxiety and depression Other insomnia Breast pain, left BMI 38.0-38.9,adult Dietary counseling Dietary surveillance and counseling Exercise counseling Vaginal itching Pruritus of genital organs documented in this encounter Additional Health Concerns Assessment Noted Time PHQ-9 Depression Total Score: 8 03/08/20 25 11:03 AM EDT documented as of this encounter Care Teams Dining Room Captain Relationship Specialty Start Date End Date Leandra Byrd DO [address] [place] [address] PCP - General Family Medicine 06/29/18 Ivonne Ledesma RN [address] [place] [address] Registered Nurse Family Medicine 02/16/25 Ada Rincon 02/16/25 documented as of this encounter
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
--- OUTSIDE RECORDS SUMMARY | 2025-03-08 19:32 | XMS_ITS | Encounter Summary ---
Author Organization [employer] Address [address] [facility] 7t [place] [address] Care Team Providers Care Lens Polisher Hand Name Role Phone Leandra Byrd DO Primary Care Provider + [phone] Ivonne Ledesma RN Unavailable [phone] Ada Rincon Unavailable Reason for Visit * Reason Onset Date Comments Chart Prep 03/03/2025 Encounter Details Date Type Department Care Team ([facility] st Contact Info) Description 03/03/[address] [facility] [address] [place] [address] Leandra Byrd DO [address] [place] [address] Chart Prep Social History Tobacco Use Types Packs/Day Years Used Date Smoking Tobacco: Former Cigarettes Passive Smoke Exposure: Past Smokeless Tobacco: Never Alcohol Use Standard Drinks/Week Comments Never 0 (1 standard drink = 0.6 oz pur e alcohol) Depression Answer Date Recorded Patient Health Questionnaire-9 Score 0 07/29/2024 Patient Health Questionnaire-9 Score 0 07/29/2024 Last PHQ-9: Questionnaire Data Not on file 0 07/29/2024 Housing Stability Answer Date Recorded What is [...] Answer Date Recorded Patient Health Questionnaire-2 Score 0 07/29/2024 Internet Access Answer Date Recorded Internet Access Q1 Yes 07/29/2024 Internet Access Q2 Not on file 07/29/2024 Comments No Sex and Gender Information Value Date Recorded Sex Assigned at Female 04/28/2022 10:20 AM EDT Legal Sex Female 10:20 AM EDT Gender Identity Female 04/28/2022 10:20 AM EDT Sexual Orientation Straight 04/28/2022 10 :20 AM EDT documented as of this encounter Miscellaneous Notes * Telephone Encounter - Sarah Jeffery MA - 03/03/2025 2:01 PM EDT Chart Prep Labs: not done Images: done MRI L-Spine Report-08/02/24([facility]) Referrals: appointment pending Vaccines due: Covid and Flu Screenings: LMP Overdue care gaps: SBIRT, PHQ-9, SANDOR-7, and Disability screen documented in this encounter Plan of Treatment Not on file documented as of this encounter Visit Diagnoses Not on filedocumented in this encounter Additional Health Concerns Assessment Noted Time PHQ-9 Depression Total Score: 0 07/29/19 9:07 AM EST documented as of this encounter Care Teams Lens Polisher Hand Relationship Specialty Start Date End Date Leandra Byrd DO [address] [place] [address] PCP - General Family Medicine 06/29/18 Ivonne Ledesma RN [address] [place] [address] Registered Nurse Family Medicine 02/16/25 Ada Rincon 02/16/25 documented as of this encounter
--- OUTSIDE RECORDS SUMMARY | 2025-03-08 19:32 | XMS_ITS | Encounter Summary ---
Author Organization [employer] Address [address] [facility] 7t [place] [address] Care Team Providers Care Sediment Remediation Consultant Name Role Phone Leandra Byrd DO Primary Care Provider + [phone] Ivonne Ledesma RN Unavailable [phone] Ada Rincon Unavailable Reason for Visit * Reason Comments Med Refill Encounter Details Date Type Department Care Team ([facility] st Contact Info) Description 03/16/2024 Refill [facility] [address] [place] [address] Leandra Byrd DO [address] [place] [address] Insomnia, unspecified Social History Tobacco Use Types Packs/Day Years Used Date Smoking Tobacco: Former Cigarettes Passive Smoke Exposure: Past Smokeless Tobacco: Never Alcohol Use Standard Drinks/Week Comments Never 0 (1 standard drink = 0.6 oz pur e alcohol) Depression Answer Date Recorded Patient Health Questionnaire-9 Score 9 05/07/2023 Patient Health Questionnaire-9 Score 9 05/07/2023 Last PHQ-9: Questionnaire Data Not on file 1 07/07/2022 Housing Stability Answer Date Recorded What is your housing situation today? I have brayden sheldon 05/07/[address] you li ve. Do you have problems with any of the following? None of the above 05/07/2023 Food Insecurity Answer Date Recorded Within the past 12 months, y ou worried that your food would run out before you got money to buy more: Never True 05/07/2023 Within the past 12 months,th e food you bought just didn't last and you didn't have enough money to get more: Never True 02/2023 Transportation Answer Date Recorded In the past 12 months, has l ack of transportation kept you from medical appts, meetings, work or from getting things needed for daily living? No 05/07/2023 Utilities Answer Date Recorded In the past 12 months, has t he electric, gas, oil or water company threatened to shut off services in your home? No 05/07/2023 Depression Answer Date Recorded Patient Health Questionnaire-2 Score 4 05/07/2023 Comments Unknown Sex and Gender Information Value Date Recorded Sex Assigned at Female 04/28/2022 10:20 AM EDT Legal Sex Female 10:20 AM EDT Gender Identity Female 04/28/2022 10:20 AM EDT Sexual Orientation Straight 04/28/2022 10 :20 AM EDT documented as of this encounter Plan of Treatment Not on file documented as of this encounter Visit Diagnoses Diagnosis Insomnia, unspecified documented in this encounter Additional Health Concerns Assessment Noted Time PHQ-9 Depression Total Score: 9 05/07/20 23 11:38 AM EST documented as of this encounter Care Teams Sediment Remediation Consultant Relationship Specialty Start Date End Date Leandra Byrd DO [address] [place] [address] PCP - General Family Medicine 06/29/18 Ivonne Ledesma, BLADIMIR [address] [place] [address] Registered Nurse Family Medicine 02/16/25 Ada Rincon 02/16/25 documented as of this encounter
--- OUTSIDE RECORDS SUMMARY | 2025-03-08 19:32 | XMS_ITS ---
Author Organization [employer] Address [address] [facility] 7t [place] [address] Care Team Providers Care Telephone Supervisor Name Role Phone Leandra Byrd DO Primary Care Provider [phone] Ivonne Ledesma RN Unavailable [phone] Ada Rincon Unavailable [facility] Complex Status:Outreach In Progress (Enrolling) Start date:02/16/2025 Enrollment reason:ADT Feed Overview [facility] ED 02/15/25 UTI. Please outreach for enrollment. Case Team Name Relationship Phone Ada Rincon(Responsible Staff) [phone] Continued Care and Services Coordination
--- OUTSIDE RECORDS SUMMARY | 2025-03-08 19:32 | XMS_ITS | Encounter Summary ---
Author Organization [employer] Address [address] [place] [address] [address] [address] Care Team Providers Care Field Crops Harvest Machine Operator Name Role Phone Leandra Byrd DO Primary Care Provider [phone] Ivonne Ledesma RN Unavailable [phone] Ada Rincon Unavailable Encounter Details Date Type Department Care Team (Late st Contact Info) Description 06/25/2022 Orders Only [facility]S [address] [place] [address] Leandra Malone LPN Social History Tobacco Use Types Packs/Day Years [...] on filedocumented in this encounter Care Teams Field Crops Harvest Machine Operator Relationship Specialty Start Date End Date Leandra Byrd DO [address] [place] [address] PCP - General Family Medicine 06/29/18 Ivonne Ledesma, BLADIMIR [address] [place] [address] Registered Nurse Family Medicine 02/16/25 Ada Rincon 02/16/25 documented as of this encounter
--- OUTSIDE RECORDS SUMMARY | 2025-03-08 19:32 | XMS_ITS | Clinical Summary ---
Author Organization [employer] Address [address] [facility] [address] [place] [address] Care Team Providers Care Pediatric Oncologist Name Role Phone CarsonLeandra Primary Care Provider [phone] Ivonne Ledesma RN Unavailable [phone] Ada Rincon Unavailable Allergies Active Allergy Reactions Criticality Noted Date Comments Acetaminophen 11/09/2014 Other reaction(s): Nausea/Vomiting Bee Pollen Anaphylaxis High 10/28/2020 Codeine Hives,Itching 03/22/2024 Daucus Carota Rash Low 10/28/2020 Fruit Extracts Hives,Itching High 02/18/2024 Oxycodone Vomiting,Nausea And Vomiting 11/09/2014 Other reaction(s): Nausea/Vomiting Oxycodone-Acetaminophen Nausea And Vomiting Potato Rash Low 10/28/2020 Medications Proventil HFA 108 (90 Base) MCG/ACT inhaler INHALE 1 PUFF BY MOUTH EVERY 4 HOURS NEEDED 023 Active montelukast (Singulair) 10 MG tablet Take 10 mg by mouth at bedtime. 022 Active diphenhydrAMINE (BENADryl) 25 MG tabletIndications:R mary Take 1 tablet (25 mg) by mouth every 6 (six) hours if needed for itching. 30 tablet 024 Active docusate sodium (Colace) 100 MG capsuleIndications: Constipation, unspecified constipation type TAKE 1 CAPSULE BY MOUTH TWICE DAILY NEEDED FOR CONSTIPATION 180 capsule 1 024 Active EPINEPHrine (Epipen-JR) 0.15 MG/0.3ML injection syringe Inject 0.15 mg into the shoulder, thigh, or buttocks as needed for anaphylaxis. 2 each Active meclizine (Antivert) 25 MG tabletIndications:D izziness Take 1 tablet (25 mg) by mouth if needed in the morning, at noon, and at bedtime for dizziness. 30 tablet 1 Active acetaminophen (Arthritis Pain Relief) 650 MG ER tablet Take 1 tablet (650 mg) by mouth every 8 (eight) hours if needed for mild pain. Do not crush, chew, or split. 50 tablet 3 024 Active albuterol 108 (90 Base) MCG/ACT inhalerIndications: Mild persistent asthma with exacerbation Inhale 2 puffs every 6 (six) hours if needed for wheezing. 18 g Active fluticasone furoate (Arnuity Ellipta) 100 MCG/ACT inhaler Inhale 1 puff Once per day. Rinse mouth with water after use to reduce aftertaste and incidence of candidiasis. Do not swallow. 1 each Active albuterol (2.5 MG/3ML) 0.083% nebulizer solution Take 3 mL (2.5 mg) by nebulization every 4 (four) hours if needed for wheezing. 75 mL Active Nebulizer misc 1 kit Every 4-6 hours as needed (SOB and wheezing). Acelleron nebulizer given in walk in center 02/23/2024. Teaching provided at time of visit Active ibuprofen 400 MG tablet Take 1 tablet (400 mg) by mouth every 8 (eight) hours if needed for mild pain. 40 tablet 2 Active fluticasone (Flonase) 50 MCG/ACT nasal spray Shake gently. Before first use, prime pump. After use, clean tip and replace cap.INSTILL 2 SPRAYS IN EACH NOSTRIL ONCE DAILY 48 g Active loratadine (Claritin) 10 MG tabletIndications:S easonal allergic rhinitis, unspecified trigger TAKE 1 TABLET BY MOUTH EVERY DAY 90 tablet 3 025 Active Ferrous Sulfate (iron) 325 (65 Fe) MG tabletIndications:A nemia, unspecified type TAKE 1 TABLET BY MOUTH TWICE DAILY 180 tablet 3 025 Active tiZANidine (Zanaflex) 2 MG tablet TAKE 1 TABLET BY MOUTH THREE TIMES DAILY IN THE MORNING, AT NOON AND AT BEDTIME NEEDED FOR MUSCLE SPASMS 60 tablet 1 025 Active amitriptyline (Elavil) 10 MG tablet TAKE 1 OR 2 TABLETS BY MOUTH EVERY DAY AT BEDTIME 60 tablet 5 025 Active SUMAtriptan (Imitrex) 50 MG tablet TAKE 1 TABLET BY MOUTH AT ONSET OF MIGRAINE. MAY REPEAT ONCE AFTER 2 HOURS IF NEEDED. DO NOT EXCEED 2 DOSES IN 24 hours 9 tablet 2 025 Active melatonin 5 MG tabletIndications:I nsomnia, unspecified type TAKE 1 OR 2 TABLETS BY MOUTH EVERY DAY 3 HOURS BEFORE BEDTIME NEEDED for SLEEP 60 tablet 2 025 Active Diclofenac Sodium 1 % gel APPLY 2 GRAMS TOPICALLY TO AFFECTED AREA(S) 4 TIMES A DAY IN THE MORNING, AT NOON, IN THE EVENING, AND AT BEDTIME NEEDED FOR PAIN 100 g 025 Active omeprazole (PriLOSEC) [address] capsuleIndications: Chronic gastroesophageal reflux disease TAKE 1 CAPSULE BY MOUTH TWICE DAILY BEFORE MEALS 180 capsule 025 Active levothyroxine (Synthroid, Levoxyl) 50 MCG tabletIndications:H ypothyroidism, unspecified type TAKE 1 TABLET BY MOUTH EVERY DAY 90 tablet 025 Active naproxen (Naprosyn) 500 MG tablet TAKE 1 TABLET BY MOUTH TWICE DAILY IN THE MORNING AND AT BEDTIME NEEDED FOR MILD PAIN 40 tablet 025 Active Eye Itch Relief 0.035 % solutionIndications :Seasonal allergic rhinitis, unspecified trigger ADMINISTER 1 DROP into AFFECTED EYE(S) IN THE MORNING AND AT BEDTIME NEEDED FOR ITCHING 5 mL 3 025 Active Ascorbic Acid (vitamin C) 250 MG tabletIndications:I andrea deficiency anemia, unspecified iron deficiency anemia type TAKE 1 TABLET BY MOUTH TWICE DAILY WITH Ferrous Sulfate 180 tablet 1 025 Active zolpidem (Ambien) 10 MG tabletIndications:I nsomnia, unspecified TAKE 1 TABLET BY MOUTH EVERY DAY AT BEDTIME NEEDED FOR SLEEP 30 tablet 3 025 Active D3 Super Strength 50 MCG (2000 UT) capsuleIndications: Vitamin D deficiency TAKE 1 CAPSULE BY MOUTH EVERY DAY 90 capsule 1 025 Active lidocaine (Lidoderm) 5 % patch APPLY 3 PATCHES TOPICALLY TO AFFECTED AREA(S) ONCE DAILY LEAVE ON FOR 12 HOURS AND OFF FOR 12 HOURS 90 patch 3 025 Active lidocaine (Lidoderm) 5 % patch Apply 3 patches topically Once per day. Remove & discard patch within 12 hours or as directed by MD. 90 patch 3 024 2024 Discontinued D3 Super Strength 50 MCG (1999 UT) capsuleIndications: Vitamin D deficiency TAKE 1 CAPSULE BY MOUTH EVERY DAY 90 capsule 1 025 2024 Discontinued Active Problems Problem Noted Date Diagnosed Date Cough in adult 09/12/2024 COVID-19 09/12/2024 Assessment & Plan (09/12/2024 10:32 AM EDT): Pt with positive Covid test, was vaccinated this season, declines paxlovid, Reassuring resp exam Monitor for worsening symptoms, note given for work Upper respiratory tract infection 06/17/2024 Assessment & Plan (06/17/2024 5:57 PM EST): Children recently dx with strep pharyngitis, test negative Exam reassuring, Gastroesophageal reflux disease with esophagitis 06/17/2024 Assessment & Plan (06/17/2024 5:57 PM EST): Prn sulcarafate rx, Continue ppi Diarrhea of infectious origin 06/17/2024 Diarrhea 06/17/2024 Assessment & Plan (06/17/2024 5:56 PM EST): Prn immodium, sparing use reviewed Return to clinic for worsening symptoms , severe abdominal pain, or failure to resolve Cubital tunnel syndrome on left 05/05/2024 Cervical spondylosis 05/05/2024 Chronic neck pain 05/05/2024 Chronic migraine 05/05/2024 Mechanical complication of i ntrauterine contraceptive device 01/01/2024 PAT (paroxysmal atrial tachycardia) 01/01/2024 Insomnia 09/11/2023 History of tobacco use 09/11/2023 BMI 36.0-36.9,adult 08/20/2023 Anemia 02/09/2023 History of COVID-19 02/09/2023 Hypothyroidism 02/09/2023 Chronic allergic rhinitis 02/21/2016 Mild persistent asthma 02/21/2016 Chronic low back pain 02/21/2016 Depression 02/21/2016 Chronic gastroesophageal reflux disease 02/21/20 16 Resolved Problems Problem Noted Date Diagnosed Date Resolved Date Mild persistent asthma with exacerbation 02/22/2024 05/05/2024 Assessment & Plan (02/22/2024 11:57 AM EDT): Patient educated to avoid asthma triggers Albuterol inhaler q 4-6 hrs Prednisone 40mg for 5 days If symptoms persist or worse report back GBS carrier 01/01/2024 05/05/2024 History of tachycardia 01/01/202405/05 Rash 09/14/2023 05/05/2024 Assessment & Plan (09/14/2023 5:14 PM EDT): Reaction to the vaccines? Apply cold compress on the area If symptoms persist or worse report back Prednisone and benadryl prescribed Whiplash injuries, initial encounter 02/09/2023 04/13/2023 Assessment & Plan (02/09/2023 2:41 PM EDT): Heat, Flexeril 5mg at night as needed Xray to rule out bony abnormality PT referral placed, to call if not feeling improvement in another 5 days Encounters Date Type Department Care Team Description 03/08/2025 9:30 AM EDT Office Visit [facility] [address] [place] [phone] eLandra Byrd DO Routine history and physical examination of adult [...] 38.0-38.9,adult; Dietary counseling; Exercise counseling; Vaginal itching 03/08/2025 Travel 03/07/2025 Travel 03/03/[address] [address] Leandra Byrd DO Chart Prep 03/01/2025 Patient Outreach [address] [address] Leandra Byrd DO Pre-visit Planning (Pre-visit planning - LVM ) 02/17/2025 Patient Outreach [address] [address] Leandra Byrd DO Care Coordination (CM/CHW outreach) 02/16/2025 Patient Outreach [address] [address] Leandra Byrd DO Care Coordination (CHW chart review) 02/16/2025 Patient Outreach [address] [address] Leandra Byrd DO Care Management (C3CM- chart review) 02/16/2025 Patient Outreach [address] [address] Leandra Byrd DO 02/15/2025 Orders Only GENERIC EXTERNAL DATA DEPARTMENT Provider, Generic External Data 02/13/[address] [phone] Leandra Byrd DO Vitamin D deficiency 01/20/[address] [address] Leandra Byrd DO Recall Appointment 01/20/2025 Travel 01/16/[address] [address] Leandra Byrd DO Appointment Request 01/03/2025 Orders Only GENERIC EXTERNAL DATA DEPARTMENT Provider, Generic External Data from Last 3 Months Immunizations Immunization Administration Dates Next Due DTP 11/02/1990, 9,02/07/1987,12/12,1986 HPV 9-Valent 02/23/2024 HPV, Quadrivalent 01/10/2013,11/08/2012 Hep B, Adolescent or Pediatric 08/21/1998,1995,01/25/1996 Hib (HbOC) 07/03/1988 IPV 07/03/1988 Influenza Injectable Quadriv alant Preservative Free IIV4 MDCK 04/12/2020 Influenza injectable quadriv alent IIV4 with preservative 05/04/2017 Influenza injectable quadriv alent preservative free 05/07/2023,04/10/2022,06/17/2021,06/10 Influenza, IIV3, injectable 04/21/2016, 0 Influenza, seasonal, injecta ble, preservative free 03/10/2024 MMR 08/22/1998,09/26/1997 Meningococcal MCV4P ACYW-135 11/04/2005 OPV, Trivalent 11/02/1990,1986,1986 Pfizer Covid-19 Vaccine 12+ 09/11/2023 Pneumococcal Conjugate PCV 20 09/11/2023 Pneumococcal Polysaccharide PPSV23 07/05/2010 TD (adult), 2 Lf tetanus tox oid, preservative free, adsorbed 07/29/2022,08/22/1998 Td (adult), unspecified 05/26/2016 Tdap 12/14/2013,04/04/2010 Varicella 03/27/1999 Family History Medical History Relation Name Comments Asthma Brother Stomach cancer Cousin Stroke Father Diabetes Maternal Grandmother Arthritis Mother Coronary artery disease Mother Hypertension Mother Substance use Mother Stomach cancer Mother's Brother Alcohol abuse Paternal Grandmother Liver disease Paternal Grandmother Relation Name Status Comments Brother Cousin Alive Father Maternal Grandmother Mother Mother's Brother Paternal Grandmother Social History Tobacco Use Types Packs/Day Years Used Date Smoking Tobacco: Former Cigarettes Passive Smoke Exposure: Past Smokeless Tobacco: Never Tobacco Cessation:Counseling Given: Not Answered Alcohol Use Standard Drinks/Week Comments Never 0 [...] Orientation Straight 04/28/2022 10 :20 AM EDT Last Filed Vital Signs Vital Sign Reading [...] Mass Index 38.33 03/08/2025 9:41 AM EDT Plan of Treatment Health Maintenance Due Date Last Done Comments Family Planning (PISQ) 2001 COVID-19 Vaccine ( season) 2025 09/11/2023, 04/10/2022, 06/17/2021, Additional history exists Influenza Vaccine (#1) 2025 , 05/07/2023, 04/10/2022, Additional history exists SDOH Screening 07/29/2025 07/29/2024 Disability Screening 03/07/2026 03/07/2025 Alcohol/Substance Use Screening 03/08/2026 03/08/2025 Depression Screening 03/08/2026 03/08/2025, 03/08/20 Tobacco Screening 03/08/2026 03/08/2025 Cervical Cancer Screening 06/10/2028 HPV/Cotest 06/10/2028 06/10/2023 Pap Smear 06/10/2028 06/10/2023 Lipid Panel 09/21/2028 09/22/2023 DTaP/Tdap/Td Vaccines (10 - Td or Tdap) 07/29/2032 07/29/2022, 05/26/2016, 12/14/2013, Additional history exists Zoster Vaccines (1 of 2) 2036 RSV Patients and Patients Aged 60 years or older (1 - 1-dose 75+ series) 2061 HIB Vaccines Completed 07/03/1988 IPV Vaccines Completed 11/02/1990, 10/1988, 1986, Additional history exists Hepatitis B Vaccines Completed 08/21/1998, 03/01/1996, 01/25/1996 Meningococcal Vaccine Aged Out 11/04/2005 No gamaliel cathi eligible based on patient's age to complete this topic Pneumococcal Vaccine: Pediatrics (0 to 5 Years) and At-Risk Patients (6 to 49) Years Completed 09/11/2023, 07/05/2010 HIV Screening Completed 09/22/2023 Hepatitis C Screening Completed 09/22/2023 HPV Vaccines Completed 02/23/2024, 12/27, 11/08/2012 Hepatitis A Vaccines Aged Out No long er eligible based on patient's age to complete this topic Meningococcal B Vaccine Aged Out No l onger eligible based on patient's age to complete this topic RSV under 20 months Aged Out No longe r eligible based on patient's age to complete this topic Rotavirus Vaccines Aged Out No longer eligible based on patient's age to complete this topic Procedures Procedure Name Priority Date/Time Associated Diagnosis Comments HCG, QL, URINE Routine 02/15/2025 3:32 PM EDT URINALYSIS, COMPLETE, WITH REFLEX TO CULTURE Routine 02/15/2025 3:32 PM EDT CULTURE, URINE, ROUTINE Routine 02/15/2025 12:00 AM EDT SARS COV2/INFLUENZA A/B AND RSV RNA QL NAAT Routine 01/03/2025 6:17 PM EDT STREP A NUCLEIC ACID Routine 01/03/2025 6:17 PM EDT HEPATITIS C AB W/REFL TO HCV RNA, QN, PCR Routine 09/22/2023 12:53 PM EDT Routine history and physical examination of adult HIV 1/2 ANTIGEN/ANTIBODY, FOURTH GENERATION W/RFL Routine 09/22/2023 12:53 PM EDT Routine history and physical examination of adult LIPID PANEL, STANDARD Routine 09/22/2023 12:53 PM EDT Routine history and physical examination of adult HM PAP/HPV Routine 06/10/2023 from Last 3 Months or Most Recently Relevant to Health Maintenance Results * (ABNORMAL) Urinalysis, Complete, with Reflex to Culture (02/15/2025 3:32 PM EDT) Color Urine Yellow [facility] Appearance Urine Clear [facility] PH 5.5 5.0 - 9.0 [facility] Glucose Urine UA Negative Negative mg/dL [facility] Urine Blood Negative Negative [facility] Specific [place] - Urine 1.015 1.005 - 1.025 [facility] Urine Protein Negative Neg-Trace mg/dL [facility] Urine Ketones Negative Negative mg/dL [facility] Nitrite Urine Negative Negative [facility] Leukocyte Esterase Urine Large (3+)(A) Negative [facility] RBC Urine 0-2 0 - 2 /HPF [facility] Urine WBC 21-50(A) 0 - 5 /HPF [facility] Urine Squamous Epithelial Cell 3-5 0 - 2 /HPF [facility] Urine Bacteria None Seen None Seen [facility] Hyaline Casts, Urine 0-2 0 - 2 /LPF [facility] 02/15/2025 3:32 PM EDT 02/15/2025 3:37 PM EDT Narrative [facility] - 02/15/2025 4:04 PM EDT [id number], Clean Catch us Generic External Data Provider LAB URINE ORDERAB LES Final Result Performing Organization Address [facility] Co de Phone Number [facility] [address] [place] [phone] * HCG, Qualitative, Urine (02/15/2025 3:32 PM EDT) Urine NEGATIVE NEGATIVE [facility] Comment:This test was develo ped to detect early . Falsenegative results may occur after the 5th - 7th week ofpregnancy when using this test method. If clinicallyindicated, consider a serum hCG. 02/15/2025 3:32 PM EDT 02/15/2025 3:37 PM EDT us Generic External Data Provider LAB URINE ORDERAB LES Final Result Performing Organization Address [facility] Co de Phone Number [facility] [address] [place] [phone] * Culture, Urine, Routine (02/15/2025 12:00 AM EDT) Urine Urine specimen obtained by clean catch procedure / Unknown 02/15/2025 02/15/2025 Comment:UACC Narrative [facility] - 02/17/2025 10:56 AM EDT Lactobacillus species Quant > 100,000 cfu/mL Susc N/A Susceptibility not routinely performed on this isolate. Specimen Source: Urine clean catch Scrap Connection External Data Provider LAB MICROBIOLOGY - GENERAL ORDERABLES Final Result Performing Organization Address [facility] Co de Phone Number [facility] [address] [place] [phone] * Strep A Nucleic Acid (01/03/2025 6:17 PM EDT) IDNOW SERIAL# [id number] [facility] Strep A Nucleic Acid Negative Negative [facility] Comment:All test results mus t be correlated with clinical findings.This test has not been evaluated for monitoring treatment ofinfection.Additional follow-up testing using the culture method isrequired if the result is negative and clinical symptomspersist, or in the event of an acute rheumatic feveroutbreak. 01/03/2025 6:17 PM EDT 01/03/2025 6:27 PM EDT Scrap Connection External Data Provider LAB MICROBIOLOGY - GENERAL ORDERABLES Final Result Performing Organization Address [facility] de Phone Number [facility] [address] [place] [phone] * SARS-CoV-2 RNA, Influenza A/B, and RSV RNA, Ql NAAT (01/03/2025 6:17 PM EDT) Pathologist [facility] Influenza A PCR NEGATIVE Negative [facility] Influenza B PCR NEGATIVE Negative [facility] Resp Syncy Virus RNA Qual PCR NEGATIVE Negative [facility] SARS COV2 PCR NEGATIVE Negative [facility] Comment:All test results mus t be correlated with clinical findings.Negative results do not preclude SARS-CoV2, influenza Avirus, influenza B virus and/or RSV infectionand should not be used as the sole basis for treatment orother patient management decisions. Negative results must becombined with clinical observations, patient history, andepidemiological information.This test has not been evaluated for monitoring treatment ofinfection.This test has been authorized by the FDA under an EmergencyUse Authorization (EUA) for use by authorized laboratories.Testing performed on the [employer] GeneXpert utilizingreal-time RT-PCR.All SARS CoV2 and positive influenza A/B results arereported to [facility]. 01/03/2025 6:17 PM EDT 01/03/2025 6:27 PM EDT us Generic External Data Provider LAB MICROBIOLOGY - GENERAL ORDERABLES Final Result Performing Organization Address City/[facility]/ZIP Co de Phone Number [facility] [address] [place] [phone] * Hepatitis C Antibody with Reflex to HCV, RNA, Quantitative, Real-Time PCR (09/22/2023 12:53 PM EDT) Hepatitis C Antibody Nonreactive Nonreactive [facility] Comment:Antibodies to HCV no t detected; does not exclude early acuteHCV infection. Blood Venous blood specimen / Unknown 09/22/2023 12:53 PM EDT 09/22/2023 4:15 PM EDT Leandra Byrd DO LAB BLOOD ORDERABLES Final R esult Performing Organization Address [facility] Co de Phone Number [facility] [address] [place] [phone] * HIV-1/2 Antigen and Antibodies, Fourth Generation, with Reflexes (09/22/2023 12:53 PM EDT) HIV AB/AG Nonreactive Nonreactive [facility] Comment:HIV-1 p24 Ag and/or HIV-1/HIV-2 Ab not detected.A test result that is nonreactive does not exclude thepossibility of exposure to or infection with HIV-1 and/orHIV-2. Nonreactive results in this assay for individualswith prior exposure to HIV-1 and/or HIV-2 may be due toantigen and antibody levels that are below the limit ofdetection of this assay.The [employer] HIV Ag/Ab Combo assay result andsupplemental assay results should be interpreted inconjunction with the patient's clinical presentation,history and other laboratory results. If the results areinconsistent with clinical evidence, additional testing issuggested to confirm the result. Blood Venous blood specimen / Unknown 09/22/2023 12:53 PM EDT 09/22/2023 4:15 PM EDT Leandra Byrd DO LAB BLOOD ORDERABLES Final R esult Performing Organization Address [facility] Co de Phone Number [facility] [address] [place] [phone] * (ABNORMAL) Lipid Panel, Standard (09/22/2023 12:53 PM EDT) Triglycerides 139 <150 mg/dL [facility] Comment:Desirable Triglyceri de: less than 150 mg/dLBorderline High Triglyceride 150-199 mg/dLHigh Triglyceride: 200-499 mg/dLVery High Triglyceride: greater than or equal to 5OO mg/dL Cholesterol 209(H) <200 mg/dL [facility] Comment:Desirable Cholestero l: less than 200 mg/dLBorderline High Cholesterol: 200-239 mg/dLHigh Cholesterol: greater than 239 mg/dL LDL Cholesterol Calculated 139(H) <100 mg/dL [facility] Comment:Desirable LDL: less than 100 mg/dLNear Optimal/Above Optimal LDL: 110- 129 mg/dLBorderline High LDL: 130-159 mg/dLHigh LDL: 160-189 mg/dLVery High LDL: greater than or equal to 190 mg/dL HDL Cholesterol 43 >40 mg/dL [facility] Comment:Desirable HDL: great er than 40 mg/dL Note: This HDL assay may give artificially low results in patients with liver disease. Blood Venous blood specimen / Unknown 09/22/2023 12:53 PM EDT 09/22/2023 4:15 PM EDT Leadnra Byrd DO LAB BLOOD ORDERABLES Final R esult [facility] [address] [place] [phone] * Pap Smear (06/10/2023) Pap Negative for intraephithelial lesion or malignancy Negative for intraephithelial lesion or malignancy, Other HPV Undetected Undetected, Indeterminate, Quantitative, Not Detected Historical Provider MD HEALTH MAINTENANCE Final Result from Last 3 Months or Most Recently Relevant to Health Maintenance Insurance * Guarantor: Sarah Schneider Account Type Relation to Patient Date of Phone Billing Address Personal/Family Self [address] [place] [address] [facility] * Guarantor: Sarah Schneider Account Type Relation to Patient Date of Phone Billing Address [employer] Party Liability Self [address] [place] [address] [facility] * Guarantor: Sarah Schneider Account Type Relation to Patient Date of Phone Billing Address Personal/Family Self [address] [place] [address] * Guarantor: Sarah Schneider Account Type Relation to Patient Date of Phone Billing Address Personal/Family Self [address] [place] [address] * Guarantor: Sarah Schneider Account Type Relation to Patient Date of Phone Billing Address Personal/Family Self [address] [place] [address] Care Teams Pediatric Oncologist Relationship Specialty Start Date End Date Leandra Byrd DO [address] [place] [address] PCP - General Family Medicine 06/29/18 Ivonne Ledesma, BLADIMIR [address] [place] [address] Registered Nurse Family Medicine 02/16/25 Ada Rincon 02/16/25
--- OUTSIDE RECORDS SUMMARY | 2025-03-08 19:32 | XMS_ITS | Encounter Summary ---
Author Organization [employer] Address [address] [place] [address] [address] [place] [address] Care Team Providers Care Volleyball Coach Name Role Phone Leandra Byrd DO Primary Care Provider +[phone] Ivonne Ledesma RN Unavailable [phone] Ada Rincon Unavailable Encounter Details Date Type Department Care Team (Late st Contact Info) Description 07/21/2022 Orders Only [facility]S [address] [place] [address] Leandra Malone LPN Social History Tobacco Use [...] on filedocumented in this encounter Care Teams Volleyball Coach Relationship Specialty Start Date End Date Leandra Byrd DO [address] [place] [address] PCP - General Family Medicine 06/29/18 Ivonne Ledesma, BLADIMIR 505 [place] [address] Registered Nurse Family Medicine 02/16/25 Ada Rincon 02/16/25 documented as of this encounter
--- OUTSIDE RECORDS SUMMARY | 2025-03-08 19:32 | XMS_ITS | Encounter Summary ---
Author Organization [employer] Address [address] [facility] [address] 7t [place] [address] Care Team Providers Care Rating Examiner Name Role Phone CarsonLeandra Primary Care Provider + [phone] Ivonne Ledesma RN Unavailable [phone] Ada Rincon Unavailable Encounter Details Date Type Department Care Team (Latest Contact Info) Description 03/08/2025 Travel Social History Tobacco Use Types Packs/Day Years [...] AM EDT documented as of this encounter Functional Status * Over the past 2 weeks, how often have you been bothered by any of the following problems? Question Answer Date of Assessment Author Patient Health Questionnaire -2 Score 2 03/08/2025 11:03 AM EDT Sarah Jeffery MA * Little interest or pleasure in doing things Answer Date of Assessment Author Several days 03/08/2025 11:03 AM YASIRT Sarah Jeffery MA * Feeling down, depressed, or hopeless Answer Date of Assessment Author Several days 03/08/2025 11:03 AM YASIRT Sarah Jeffery MA * Trouble falling or staying asleep, or sleeping too much Answer Date of Assessment Author More than half the days 03/08/2025 11:03 AM Sarah Mcadams MA * Feeling tired or having little energy Answer Date of Assessment Author Several days 03/08/2025 11:03 AM YASIRT Sarah Jeffery MA * Poor appetite or overeating Answer Date of Assessment Author Several days 03/08/2025 11:03 AM YASIRT Sarah Jeffery MA * Feeling bad about yourself - or that you are a failure or have let yourself or your family down Answer Date of Assessment Author Not at all 03/08/2025 11:03 AM Sarah Mcadams MA * Trouble concentrating on things, such as reading the newspaper or watching television Answer Date of Assessment Author Several days 03/08/2025 11:03 AM YASIRT Sarah Jeffery MA * Moving or speaking so slowly that other people could have noticed? Or the opposite - being so fidgety or restless that you have been moving around a lot more than usual. Answer Date of Assessment Author Several days 03/08/2025 11:03 AM YASIRT Sarah Jeffery MA * Thoughts that you would be better off or hurting yourself in some way Answer Date of Assessment Author Not at all 03/08/2025 11:03 AM YASIRT Sarah Jeffery MA * Patient Health Questionnaire-9 Score Answer Date of Assessment Author 8 03/08/2025 11:03 AM EDT Sarah Jeffery MA * How difficult have these problems [...] co ntrol worrying 2 03/08/2025 11:04 AM YASIRT Sarah Jeffery MA Worrying too much about diff erent things 2 03/08/2025 11:04 AM EDT Sarah Jeffery MA Trouble relaxing 2 03/08/2025 11:04 AM YASIRT Sarah Jeffery MA Being so restless that it is hard to sit still 2 03/08/2025 11:04 AM YASIRT Sarah Jeffery MA Becoming easily annoyed or irritable 1 03/08/2025 11:04 AM YASIRT Sarah Jeffery MA Feeling afraid as if somethi ng awful might happen 0 03/08/2025 11:04 AM YASIRT Sarah Jeffery MA SANDOR-7 Total Score 11 03/08/2025 11:04 AM Sarah Mcadams MA documented as of this encounter Plan of Treatment Not on file documented as of this encounter Visit Diagnoses Not on filedocumented in this encounter Additional Health Concerns Assessment Noted Time PHQ-9 Depression Total Score: 8 09/10/20 25 11:03 AM EDT documented as of this encounter Care Teams Rating Examiner Relationship Specialty Start Date End Date Leandra Byrd DO [address] [place] [address] PCP - General Family Medicine 06/29/18 Ivonne Ledesma RN 505 [place] [address] Registered Nurse Family Medicine 02/16/25 Ada Rincon 02/16/25 documented as of this encounter
--- OUTSIDE RECORDS SUMMARY | 2025-03-08 19:32 | XMS_ITS | Encounter Summary ---
Author Organization [employer] Address [address] [place] [address] 7 [place] [address] Care Team Providers Care Bridge Maintenance Worker Name Role Phone Leandra Byrd DO Primary Care Provider +[phone] Ivonne Ledesma RN Unavailable [phone] Ada Rincon Unavailable Reason for Visit * Reason Comments Med Refill Encounter Details Date Type Department Care Team (Late st Contact Info) Description 03/31/2023 Refill [facility] MEDICINE [address] [place] [address] Leandra Byrd DO [address] [place] [address] Vitamin D deficiency Social History Tobacco Use Types Packs/Day Years [...] as of this encounter Visit Diagnoses Diagnosis Vitamin D deficiency documented in this encounter Care Teams Bridge Maintenance Worker Relationship Specialty Start Date End Date Leandra Byrd DO [address] [place] [address] PCP - General Family Medicine 06/29/18 Ivonne Ledesma RN [address] [place] [address] [place] [address] Registered Nurse Family Medicine 02/16/25 Ada Rincon 02/16/25 documented as of this encounter
--- OUTSIDE RECORDS SUMMARY | 2025-03-08 19:32 | XMS_ITS | Encounter Summary ---
Author Organization [employer] Address [address] [facility] 7t [place] [address] Care Team Providers Care Drywall Sprayer Name Role Phone Leandra Byrd DO Primary Care Provider + [phone] Ivonne Ledesma RN Unavailable [phone] Ada Rincon Unavailable Reason for Visit * Reason Comments Med Refill Encounter Details Date Type Department Care Team (Late st Contact Info) Description 07/17/2023 Refill [facility] MEDICINE [address] [place] [address] Leandra Byrd DO 230 [place] [address] Insomnia, unspecified Social History Tobacco Use Types [...] documented as of this encounter Care Teams Drywall Sprayer Relationship Specialty Start Date End Date Leandra Byrd DO 230 [place] [address] PCP - General Family Medicine 06/29/18 Ivonne Ledesma RN [address] [place] [address] Registered Nurse Family Medicine 02/16/25 Ada Rincon 02/16/25 documented as of this encounter
--- OUTSIDE RECORDS SUMMARY | 2025-03-08 19:32 | XMS_ITS ---
Author Organization [employer] Address [address] [facility] 7t [place] [address] Care Team Providers Care Leadership Program Associate Name Role Phone Leandra Byrd DO Primary Care Provider [phone] Ivonne Ledesma RN Unavailable [phone] Ada Rincon Unavailable CM Complex Status:Outreach In Progress (Enrolling) Start date:02/16/2025 Enrollment reason:ADT Feed Overview ADT-[facility] ED 02/15/25 UTI Case Team Name Relationship Phone Ivonne Ledesma RN(Responsible Staff) Registered Nurse [phone] Continued Care and Services Coordination
--- OUTSIDE RECORDS SUMMARY | 2025-03-08 19:32 | XMS_ITS | Encounter Summary ---
Author Organization [employer] Address [address] [facility] [address] 7[address] [place] [address] Care Team Providers Care Mud Trucker Name Role Phone CarsonLeandra Primary Care Provider + [phone] Ivonne Ledesma RN Unavailable [phone] Ada Rincon Unavailable Encounter Details Date Type Department Care Team (Latest Contact Info) Description 03/07/2025 Travel Social History Tobacco Use Types Packs/Day [...] documented as of this encounter Care Teams Mud Trucker Relationship Specialty Start Date End Date Leandra Byrd DO [address] [place] [address] PCP - General Family Medicine 06/29/18 Ivonne Ledesma, BLADIMIR [address] [place] [address] Registered Nurse Family Medicine 02/16/25 Ada Rincon 02/16/25 documented as of this encounter
--- OUTSIDE RECORDS SUMMARY | 2025-03-08 19:32 | XMS_ITS | Encounter Summary ---
Author Organization [employer] Address [address] [facility] 7t [place] [address] Care Team Providers Care Telecom Field Technician Name Role Phone Leandra Byrd DO Primary Care Provider [phone] Ivonne Ledesma RN Unavailable [phone] Ada Rincon Unavailable Reason for Visit * Reason Onset Date Comments Med Refill 08/01/2022 Encounter Details Date Type Department Care Team (Late st Contact Info) Description 08/01/2022 Telephone [facility] MEDICINE [address] [place] [address] Leandra Byrd DO [address] [place] [address] Med Refill Social History Tobacco Use Types Packs/Day Years Used Date Smoking Tobacco: Never Assessed Comments Unknown Sex and Gender Information Value Date Recorded Sex Assigned at Female 04/28/2022 10:20 AM EDT Legal Sex Female 10:20 AM EDT Gender Identity Female 04/28/2022 10:20 AM EDT Sexual Orientation Straight 04/28/2022 10 :20 AM EDT COVID-19 Exposure Response Date Recorded In the last 10 days, have yo u been in contact with someone who was confirmed or suspected to have Coronavirus/COVID-19? No / Unsure 07/29/2022 2:26 PM EST documented as of this encounter Miscellaneous Notes * Telephone Encounter - Leandra Malone LPN - 08/01/2022 11:08 AM EST Medication was sent to [facility] on 07/23/22. * Telephone Encounter - Herb Merino - 08/01/2022 9:15 AM EST Tc from pt requesting med refill Iron 325 mg ( 65 mg iron ) documented in this encounter Plan of Treatment Not on file documented as of this encounter Visit Diagnoses Not on filedocumented in this encounter Care Teams Telecom Field Technician Relationship Specialty Start Date End Date Leandra Byrd DO [address] [place] [address] PCP - General Family Medicine 06/29/18 Ivonne Ledesma, BLADIMIR [address] [place] [address] Registered Nurse Family Medicine 02/16/25 Ada Rincon 02/16/25 documented as of this encounter
--- OUTSIDE RECORDS SUMMARY | 2025-03-08 19:32 | XMS_ITS | Clinical Summary ---
Author Organization [facility] Address [address] [place] [address] Phone Care Team Providers Care Fur Dry Cleaner Hand Name Role Phone Leandra Byrd DO Primary Care Provider [phone]- [phone] Allergies Active Allergy Reactions Criticality Noted Date [...] total) Every 4 hours as needed. 4 Active acetaminophen (TYLENOL) 500 mg tablet Take [...] Encounters Date Type Department Care Team Description 01/06/2025 11:15 AM EDT Office Visit Orthopedic Surgery - [facility] [address] [place] [id number] Jessica Bhardwaj MD Cubital tunnel syndrome, left (Primary Dx); Surgery follow-up 12/22/2024 9:00 AM EDT Treatment [facility] Occupational Therapy [address] [phone] Scout Cazares, TREVIÑO/L Cubital tunnel syndrome, left (Primary Dx) 12/20/2024 1:15 PM EDT Treatment [facility] Occupational Therapy [address] [phone] Scout Cazares, TREVIÑO/L Cubital tunnel syndrome, left (Primary Dx) 12/16/2024 12:30 PM EDT Treatment [facility] Occupational Therapy [address] [address] Scuot Cazares, TREVIÑO/L Cubital tunnel syndrome, left (Primary Dx) 12/14/2024 9:30 AM EDT Treatment [facility] Occupational Therapy [address] [phone] Scout Cazares, TREVIÑO/L Cubital tunnel syndrome, left (Primary Dx) 12/07/2024 9:15 AM EDT Treatment [facility] Occupational Therapy [address] [address] Kenji Barrientos OT Cubital tunnel syndrome, left (Primary Dx) from [...] - - Weight 86.2 kg (190 lb) 01/06/2025 11:33 AM EDT Height 152.4 cm (5') 01/06/2025 11:33 AM EDT Body Mass Index 37.11 01/06/2025 11:33 AM EDT Plan of Treatment Health Maintenance Due Date Last Done Comments Cervical Cancer Screening: Pap Smear 2007 Social Influencers of Health Screening 04/10/2024 Depression Screening 06/29/2024 COVID-19 Vaccine ( season) 2025 09/11/2023, 04/10/2022, 06/17/2021, Additional history exists Influenza Vaccine (#1) 2025 , 05/07/2023, 04/10/2022, Additional history exists Cholesterol Screening (Lipid Panel) 09/21/2028 09/22/2023 DTaP,Tdap,and [...] donning a jacket Patient will demo L back grinder strength >= 60# to be able to take a BP reading, Patient will demo improved functional use of L upper extremity as evidenced by Quick Dash score <= 45 to be able to sweep, and Patient will perform initial HEP MOD I LTG 12 visits General Kenji De La Rosa, OT Note: Patient will report <=3/10 tenderness/soreness in L elbow Patient will demo L elbow/L wrist AROM WFL for IADLs, Patient will demo L UE strength WFL for work tasks, Patient will demo improved functional use of L upper extremity as evidenced by Quick Dash score <= 35 to be able to perform work tasks, and Patient will perform HEP MOD I Insurance MEDICAID - [place] Advance Directives * Full [...] currently active code status orders. Care Teams Fur Dry Cleaner Hand Relationship Specialty Start Date End Date Leandra Byrd DO [address] [place], [place] PCP - General 09/12/11
--- OUTSIDE RECORDS SUMMARY | 2025-03-08 19:32 | XMS_ITS | Encounter Summary ---
Author Organization [employer] Address [address] [place] [address] 7[place] [address] Care Team Providers Care Pricing Associate Name Role Phone Leandra Byrd DO Primary Care Provider [phone] Ivonne Ledesma RN Unavailable [phone] Ada Rincon Unavailable Encounter Details Date Type Department Care Team (Late st Contact Info) Description 10/17/2022 Orders Only [facility] MEDICINE [address] [place] [address] Corrine Ramsay LPN Social History Tobacco Use Types Packs/Day [...] on filedocumented in this encounter Care Teams Pricing Associate Relationship Specialty Start Date End Date Leandra Byrd DO 230 [place] [address] PCP - General Family Medicine 06/29/18 Ivonne Ledesma, BLADIMIR [address] [place] [address] Registered Nurse Family Medicine 02/16/25 Ada Rincon 02/16/25 documented as of this encounter
--- OUTSIDE RECORDS SUMMARY | 2025-03-08 19:33 | XMS_ITS | Encounter Summary ---
Author Organization [employer] Address [address] [facility] 7t [place] [address] Care Team Providers Care Payable Representative Name Role Phone Leandra Byrd DO Primary Care Provider + [phone] Ivonne Ledesma RN Unavailable [phone] Ada Rincon Unavailable Reason for Visit * Reason Onset Date Comments Med Refill 01/26/2024 Encounter Details Date Type Department Care Team (Late st Contact Info) Description 01/26/2024 Refill [facility] MEDICINE [address] [place] [address] Leandra Byrd DO [address] [place] [address] Dizziness Social History Tobacco Use Types Packs/Day Years [...] encounter Miscellaneous Notes * Telephone Encounter - Amy Real RN - 01/27/2024 9:24 AM EDT Triage call Pt reports had Covid 2 weeks ago and now low back pain is increased, including increased numbness and pain in left leg and pressure behind left knee. Neg for fever, other Covid symptomsare resolved. Pt is able to continue normal activities and is ambulating with a limp at times. Pt is requesting to see PCP. Apt with PCP 02/04/24 @ 1200pm. Insurance is verified as active prior to booking. Protocol Used: Back Pain (Adult) Protocol-Based Disposition: See in Office or Video Visit within 2 Weeks Video visit not offered Positive Triage Question: * Back pain lasts > 2 weeks * All higher-acuity triage questions were negative Care Advice Discussed: * Reassurance and Education - Back Pain * Cold or Heat * Sleep * Activity * Pain Medicines * Pain Medicines - Extra Notes and Warnings * Reasons To Call Back - Fever occurs - Numbness or weakness occurs, or bowel/bladder problems - Pain begins to shoot into the leg - Pain persists over 2 weeks - Pain becomes worse - You become worse * Telephone Encounter - Amy Real RN - 01/26/2024 4:48 PM EDT Attempted to contact Pt for triage x2. Left voice message To call [facility] [phone]. Sent: 01/26/2024 3:45 PM EDT To: [facility] Office Subject: Appointment Request Appointment Request From: Sarah Schneider With Provider: Leandra Byrd DO [[facility] MEDICINE] Preferred Date Range: Any Preferred Times: Any Time Reason for visit: Problem Follow-Up Visit Comments: Trying to see what else Todo .I had covid about 2 weeks ago ..for some reason it triggered my lowerback pain so back I could barely walk .with also left leg numbness weakness..but bother some..can'tlay on left side gets numb..when sitting feel tingling..with meds and patches does not go away.. Appointment Request (Newest Message First) Alexandra Silva routed conversation to [facility] Nurse5 minutes ago (4:41 PM) documented in this encounter Plan of Treatment Not on file documented as of this encounter Visit Diagnoses Diagnosis Dizziness Dizziness and giddiness documented in this encounter Additional Health Concerns Assessment Noted Time PHQ-9 Depression Total Score: 9 05/07/20 23 11:38 AM EST documented as of this encounter Care Teams Payable Representative Relationship Specialty Start Date End Date Leandra Byrd DO [address] [place] [address] PCP - General Family Medicine 06/29/18 Ivonne Ledesma, RN [address] [place] [address] Registered Nurse Family Medicine 02/16/25 Ada Rincon 02/16/25 documented as of this encounter
--- OUTSIDE RECORDS SUMMARY | 2025-03-08 19:33 | XMS_ITS | Encounter Summary ---
Author Organization [employer] Address [address] [place] [address] [place], [place] [address] Care Team Providers Care Cork Insulator Helper Name Role Phone Leandra Byrd DO Primary Care Provider [phone] Ivonne Ledesma RN Unavailable [phone] Ada Rincon Unavailable Encounter Details Date Type Department Care Team (Late st Contact Info) Description 07/04/2022 Orders Only [facility] MEDICINE [address] [place] [address] Whit Jimenez RN [address] [place] [address] Social History Tobacco Use Types Packs/Day Years [...] on filedocumented in this encounter Care Teams Cork Insulator Helper Relationship Specialty Start Date End Date Leandra Byrd DO [address] [place] [address] PCP - General Family Medicine 06/29/18 Ivonne Ledesma, RN [address] [place] [address] Registered Nurse Family Medicine 02/16/25 Ada Rincon 02/16/25 documented as of this encounter
--- OUTSIDE RECORDS SUMMARY | 2025-03-08 19:33 | XMS_ITS | Encounter Summary ---
Author Organization [employer] Address [address] [facility] 7t [place] [address] Care Team Providers Care Hydrogenation Operator Name Role Phone Leandra Byrd DO Primary Care Provider + [phone] Ivonne Ledesma RN Unavailable [phone] Ada Rincon Unavailable Reason for Visit * Reason Onset Date Comments Appointment Request 08/21/2023 Encounter Details Date Type Department Care Team ([facility] st Contact Info) Description 08/21/2023 Telephone [facility] MEDICINE [address] [place] [address] Leandra Byrd DO [address] [place] [address] Appointment Request Social History Tobacco Use Types Packs/Day Years [...] encounter Miscellaneous Notes * Telephone Encounter - Vikram Rincon - 08/21/2023 2:23 PM EST Tc from pt needs an appt for work clearance. Please contact pt at [phone]. documented in this encounter Plan of Treatment Not on file documented as of this encounter Visit Diagnoses Not on filedocumented in this encounter Additional Health Concerns Assessment Noted Time PHQ-9 Depression Total Score: 9 05/07/20 23 11:38 AM EST documented as of this encounter Care Teams Hydrogenation Operator Relationship Specialty Start Date End Date Leandra Byrd DO [address] [place] [address] PCP - General Family Medicine 06/29/18 Ivonne Ledesma, BLADIMIR [address] [place] [address] Registered Nurse Family Medicine 02/16/25 Ada Rincon 02/16/25 documented as of this encounter
--- OUTSIDE RECORDS SUMMARY | 2025-03-08 19:33 | XMS_ITS | Encounter Summary ---
Author Organization [employer] Address [address] [place] [address] [address] [address] Care Team Providers Care Oracle Endeca Consultant Name Role Phone Leandra Byrd DO Primary Care Provider [phone] Ivonne Ledesma RN Unavailable [phone] Ada Rincon Unavailable Encounter Details Date Type Department Care Team (Late st Contact Info) Description 07/10/2022 Orders Only [facility] MEDICINE [address] [place] [address] Corrine Ramsay LPN Social History Tobacco Use [...] on filedocumented in this encounter Care Teams Oracle Endeca Consultant Relationship Specialty Start Date End Date Leandra Byrd DO [address] [place] [address] PCP - General Family Medicine 06/29/18 Ivonne Ledesma, BLADIMIR [address] [place] [address] Registered Nurse Family Medicine 02/16/25 Ada Rincon 02/16/25 documented as of this encounter
--- OUTSIDE RECORDS SUMMARY | 2025-03-08 19:33 | XMS_ITS | Clinical Summary ---
Author Organization [facility] Address [address] [place] [address] Phone Care Team Providers Care Edge Bonder Name Role Phone Unavailable Primary Care Provider Unavailabl e Immunizations Immunization Administration Dates Next Due DTP 11/02/1990, 9,02/07/1987,12/12,1986 Hep B, ped/adol 08/21/1998,03/01/1996,01/25/1996 Hib (HbOC) 07/03/1988 IPV 07/03/1988 MMR 08/22/1998,09/26/1997 Meningococcal Conj (Menactra) MCV4P 11/04/2005 OPV 11/02/1990,1986,1986 Td (adult) (MBL), 2 Lf tetan us toxoid, PF, adsorbed 08/22/1998 Varicella 03/27/1999 Social History Tobacco Use Types Packs/Day Years Used Date Smoking Tobacco: Never Assessed Comments Unknown Sex and Gender Information Value Date Recorded Sex Assigned at Not on file Legal Sex Female 4:13 PM EDT Gender Identity Not on file Sexual Orientation Not on file Plan of Treatment Health Maintenance Due Date Last Done Comments DTaP,Tdap,and Td Vaccines (6 - Tdap) 08/23/1998 08/22/1998, 11/02/1990, 07/03/1988, Additional history exists Varicella Vaccines (2 of 2 - 2-dose childhood series) 06/19/1999 03/27/1999 HPV Vaccines (1 - 3-dose SCDM series) 2013 Influenza Vaccines (#1) 2025 COVID-19 Vaccine ( - season) 2025 HIB Vaccines Completed 07/03/1988 IPV Vaccines Completed 11/02/1990, 10/1988, 1986, Additional history exists Hepatitis B Vaccines Completed 08/21/1998, 03/01/1996, 01/25/1996 MMR Vaccines Completed 08/22/1998, 09/26/1997 Meningococcal Vaccine Aged Out 11/04/2005 No gamaliel cathi eligible based on patient's age to complete this topic Hepatitis A Vaccines Aged Out No long er eligible based on patient's age to complete this topic Men B Vaccine Aged Out No longer elig ible based on patient's age to complete this topic Pneumococcal Vaccine Aged Out No long er eligible based on patient's age to complete this topic
--- OUTSIDE RECORDS SUMMARY | 2025-03-08 19:33 | XMS_ITS | Encounter Summary ---
Author Organization [facility] Address [address] [place] [address] Phone Care Team Providers Care Preschool Associate Teacher Name Role Phone Izabel Gutierrez MD Primary Care Provider Encounter Details Date Type Department Care Team (Late st Contact Info) Description 02/12/2017 Conversion Encounter [facility] [address] [place] [address] Social History Tobacco Use Types Packs/Day Years [...] on filedocumented in this encounter Care Teams Preschool Associate Teacher Relationship Specialty Start Date End Date Izabel Gutierrez MD [address] [place] [address] PCP - General 02/06/17 12/18/22 documented as of this encounter
--- OUTSIDE RECORDS SUMMARY | 2025-03-08 19:33 | XMS_ITS | Encounter Summary ---
Author Organization [employer] Address [address] [facility] 7t [place] [address] Care Team Providers Care Senior Qa Automation Engineer Name Role Phone Leandra Byrd DO Primary Care Provider + [phone] Ivonne Ledesma RN Unavailable [phone] Ada Rincon Unavailable Reason for Visit * Reason Comments Med Refill Encounter Details Date Type Department Care Team ([facility] st Contact Info) Description 11/13/2023 Refill [facility] MEDICINE [address] [place] [address] Leandra Byrd DO [address] [place] [address] Insomnia, unspecified Social History Tobacco Use Types [...] documented as of this encounter Care Teams Senior Qa Automation Engineer Relationship Specialty Start Date End Date Leandra Byrd DO [address] [place] [address] PCP - General Family Medicine 06/29/18 Ivonne Ledesma, BLADIMIR [address] [place] [address] Registered Nurse Family Medicine 02/16/25 Ada Rincon 02/16/25 documented as of this encounter
[2025-03-08 22:13] LABS: Bacterial Vaginosis PCR NEGATIVE (Negative); Candida Group PCR NOT DETECTED (Not Detect); Candida glab krusei PCR NOT DETECTED (Not Detect); Trichomonas vaginalis PCR NOT DETECTED (Not Detect)
== END 2025-03-08 19:29 | disposition home or self-care (01) ==
LOC: HO.HHCLNP 19:28
PROVIDERS: Visit Provider Family Medicine
DX: N89.8 Other specified noninflammatory disorders of vagina (principal)
CPT/HCPCS: 81515

== ENCOUNTER 2025-03-09 18:41 | Emergency (ER) | payer MEDICAID, SELFPAY ==
[2025-03-09 18:57] VITALS: BP 131/81; PULSE 71; RESP 16; TEMP 36.6; O2SAT 98; BMI 37.8
--- NOTE | 2025-03-09 18:57 | ED.GENADULT ---
HPI - General Adult General Chief complaint: General Medical Stated complaint: sore throat, body aches Time Seen by Provider: 03/09/25 19:29 Source: patient Mode of arrival: ambulatory Limitations: no limitations History of Present Illness ED Provider: ESTEFANIA BILL PA-C HPI narrative: 39-year-old female presents to the ED today for evaluation of sore throat and body aches x a few hours. She states her daughter is at home ill with strep throat. Denies fever, chills, dysphagia, nausea, vomiting, abdominal pain, rashes. Related Data Home Medications ?Medication ?Instructions ?Recorded ?Confirmed acetaminophen 650 mg 650 mg PO Q6-8H PRN mild pain 06/23/23 05/06/24 tablet,extended release albuterol sulfate 90 mcg/actuation 1 puff inhalation Q4H PRN Wheezing 06/23/23 05/06/24 aerosol inhaler (Proventil HFA) ascorbic acid (vitamin C) 250 mg 250 mg PO BID 06/23/23 05/06/24 tablet baclofen 10 mg tablet 10 mg PO TID PRN muscle spasm 06/23/23 05/06/24 cholecalciferol (vitamin D3) 50 50 mcg PO DAILY 06/23/23 05/06/24 mcg (2,000 unit) capsule (Vitamin D3) diclofenac sodium 1 % topical gel 2 g topical QID PRN pain 06/23/23 05/06/24 docusate sodium 100 mg capsule 100 mg PO BID PRN constipation 06/23/23 05/06/24 epinephrine 0.15 mg/0.3 mL mg IM DIRECTED SOB 06/23/23 05/06/24 injection,auto-injector ferrous sulfate 325 mg (65 mg 325 mg PO BID 06/23/23 05/06/24 iron) tablet (FeroSul) fluticasone propionate 50 2 spray intranasal DAILY 06/23/23 05/06/24 mcg/actuation nasal spray,suspension ibuprofen 600 mg tablet 600 mg PO Q8H PRN moderate pain 06/23/23 05/06/24 ketotifen fumarate 0.025 % (0.035 1 drp ophthalmic (eye) BID PRN itch 06/23/23 05/06/24 %) eye drops (Eye Itch Relief) levothyroxine 50 mcg tablet 50 mcg PO DAILY 06/23/23 05/06/24 loratadine 10 mg tablet 10 mg PO DAILY 06/23/23 05/06/24 meclizine 25 mg tablet 25 mg PO TID PRN dizziness 06/23/23 05/06/24 melatonin 5 mg tablet 5 - 10 mg PO insomnia 06/23/23 05/06/24 naproxen 500 mg tablet 500 mg PO mild pain 06/23/23 05/06/24 omeprazole 20 mg capsule,delayed 20 mg PO BID 06/23/23 05/06/24 release zolpidem 10 mg tablet 10 mg PO BEDTIME PRN insomnia 06/23/23 05/06/24 Previous Rx's ?Medication ?Instructions ?Recorded tizanidine 2 mg tablet 2 mg PO TID PRN muscle spasticity 06/25/23 #90 tabs benzonatate 200 mg capsule 200 mg PO TID PRN cough #15 caps 01/03/25 cefuroxime axetil 250 mg tablet 250 mg PO Q12H #10 tabs 02/15/25 fluconazole 150 mg tablet 150 mg PO DAILY #1 tab 02/15/25 phenazopyridine 200 mg tablet 200 mg PO TID PRN pain 6 doses #6 02/15/25 (Pyridium) tabs benzocaine 15 mg-menthol 2.6 mg 1 deepa mucous membrane Q2-4H PRN 03/09/25 lozenges (Cepacol Sore Throat sore throat #16 ea (benzocaine-menthol)) penicillin V potassium 500 mg 500 mg PO BID 10 days #20 tabs 03/09/25 tablet Allergies Allergy/AdvReac Type Severity Reaction Status Date / Time oxycodone Allergy Unknown Vomiting Verified 03/09/25 18:58 codeine AdvReac Unknown Itching Verified 03/09/25 18:58 FRUIT, SKINS Allergy Intermediate ITCHING Uncoded 05/06/24 09:33 Review of Systems Review of Systems: Yes all other systems are reviewed and are negative PMFSH Past Medical History Attestation statement: The following information was validated with the patient. 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 Physical Exam ED Vital Signs: Vital Signs - 24 hr 03/09/25 18:57 Temperature 98 F Pulse Rate 71 Respiratory Rate 16 Blood Pressure 131/81 Pulse Oximetry 98 Oxygen Delivery Method Nasal Cannula BMI result Body Mass Index 37.8 Vital signs stable, afebrile Const General: cooperative, healthy appearing, comfortable, no acute distress, alert and awake Orientation/consciousness: patient oriented x3 Limitations: no limitations HENMT Other: + posterior oropharynx erythematous, no edema, uvula is midline, there are bilateral tonsillar exudates, no peritonsillar masses, controlling secretions and speaking in complete sentences. Head: Yes normal to inspection, Yes normocephalic and Yes atraumatic Ears: hearing grossly normal bilaterally, external ears normal, TM's normal bilaterally, EAC's normal, mastoids normal and no periauricular adenopathy General nose exam: Normal external nose present and No nasal discharge present Face and sinus: Yes normal facial exam and Yes sinuses nontender Eyes General: appearance normal, both eyes and all related structures Pupils: Equal, round and reactive pupils present Neck Other: + no cervical, submandibular or submental LAD. Neck: Yes normal visual inspection and Yes full ROM Resp Effort & Inspection: normal respiratory effort and able to speak in complete sentences Auscultation: clear to auscultation bilaterally Cardio Rate: regular rate Rhythm: regular rhythm GI Inspection: Yes normal to inspection Palpation (GI): Soft to palpation and nontender Skin General skin exam: no rashes or lesions noted Neuro General: patient oriented x3, gait normal and moves all extremities Cranial nerves: Yes Equal, round and reactive pupils present Extrem General: Yes normal to inspection Course Course Course Narrative: Patient tested positive for strep throat. Antibiotic sent to pharmacy. Patient has remained stable throughout ED visit today. Discussed worrisome signs and symptoms and when to return to the ED. All questions answered at this time. Patient is agreeable with disposition and stable for discharge. Medical Decision Making Medical Decision Making MDM Narrative: 39-year-old female presents to the ED today for evaluation of sore throat and body aches x a few hours. Vital signs stable. Afebrile. She is well-appearing and in no acute distress. On exam, posterior oropharynx erythematous, no edema, uvula is midline, there are bilateral tonsillar exudates, no peritonsillar masses, controlling secretions and speaking in complete sentences. No cervical lymphadenopathy. Differential diagnosis includes strep throat. Lower suspicion for viral syndrome, mono. Unlikely ANTIQUER, retropharyngeal abscess, dental abscess, epiglottis, acute respiratory distress, pneumonia. Plan for strep swab and re-evaluation. Differential Diagnosis Differential Diagnoses: The differential diagnosis associated with the presentation includes as above. Admission/Observation Not indicated Lab Data [facility] Lab Attestation statement: I reviewed the patient's lab results. as above Labs: Lab Results 03/09/25 Range/Units 19:09 S. pyogenes GrpA CHASTITY Positive A (Negative) External Record Review External record reviewed: Inpatient record Prescription Management I considered prescription management with: Pain Medication and Antibiotic Social Determinants Patient?s care significantly limited by Social Determinants of Health including: Other Social Determinant of Health Critical Care Time Critical Care Time Critical Care Time: No Discharge Plan Discharge Clinical Impression: Acute streptococcal pharyngitis Patient Disposition: Home, Self-Care Instructions: Strep Throat (ED) Additional Instructions: You were seen in the ED today for evaluation of sore throat. You tested positive for strep throat. Penicillin is an antibiotic that has been sent to your pharmacy. Take this twice daily for the next 10 days to treat strep throat. Do not stop taking these antibiotics early or miss any doses as this may cause infection to return or worsen. Cepacol throat lozenges have been sent to your pharmacy to help with throat pain. You may also purchase tyvz-mgu-[id number] chloraseptic spray to numb your throat. Take Tylenol and ibuprofen as needed for body aches or fevers. Make sure to change your toothbrush as this contains bacteria. Strep throat is contagious. If anyone else in your household is exhibiting symptoms, please advise them to come to the ED, urgent care, or to see their primary care provider. Follow up with your primary care provider this week. Return to the Emergency Department if you experience worsening or uncontrolled pain, tongue swelling, difficulty swallowing, change in your voice, difficulty breathing, fevers 100.4?F or greater, recurrent vomiting, development of a rash, or any other concerning symptoms. In the case of emergency, call 911.? Prescriptions: New penicillin V potassium 500 mg tablet 500 mg PO BID 10 Days Qty: 20 0RF Cepacol Sore Throat (clare-men) 15-2.6 mg lozenge 1 deepa mucous membrane Q2-4H PRN (Reason: sore throat) Qty: 16 0RF No Action benzonatate 200 mg capsule 200 mg PO TID PRN (Reason: cough) Qty: 15 0RF cefuroxime axetil 250 mg tablet 250 mg PO Q12H Qty: 10 0RF fluconazole 150 mg tablet 150 mg PO DAILY Qty: 1 0RF Rx Instructions: Take after completing antibiotic course phenazopyridine [Pyridium] 200 mg tablet 200 mg PO TID PRN (Reason: pain) Qty: 6 0RF zolpidem 10 mg tablet 10 mg PO BEDTIME PRN (Reason: insomnia) acetaminophen 650 mg tablet extended release 650 mg PO Q6-8H PRN (Reason: mild pain) naproxen 500 mg tablet 500 mg PO ferrous sulfate [FeroSul] 325 mg (65 mg iron) tablet 325 mg PO BID loratadine 10 mg tablet 10 mg PO DAILY docusate sodium 100 mg capsule 100 mg PO BID PRN (Reason: constipation) levothyroxine 50 mcg tablet 50 mcg PO DAILY melatonin 5 mg tablet 5 - 10 mg PO diclofenac sodium 1 % gel 2 g topical QID PRN (Reason: pain) baclofen 10 mg tablet 10 mg PO TID PRN (Reason: muscle spasm) ketotifen fumarate [Eye Itch Relief] 0.025 % (0.035 %) drops 1 drp ophthalmic (eye) BID PRN (Reason: itch) omeprazole 20 mg capsule,delayed release(DR/EC) 20 mg PO BID ascorbic acid (vitamin C) 250 mg tablet 250 mg PO BID cholecalciferol (vitamin D3) [Vitamin D3] 50 mcg (2,000 unit) capsule 50 mcg PO DAILY fluticasone propionate 50 mcg/actuation spray,suspension 2 spray intranasal DAILY ibuprofen 600 mg tablet 600 mg PO Q8H PRN (Reason: moderate pain) meclizine 25 mg tablet 25 mg PO TID PRN (Reason: dizziness) epinephrine 0.15 mg/0.3 mL auto-injector IM DIRECTED albuterol sulfate [Proventil HFA] 90 mcg/actuation HFA aerosol inhaler 1 puff inhalation Q4H PRN (Reason: Wheezing) tizanidine 2 mg tablet 2 mg PO TID PRN (Reason: muscle spasticity) Qty: 90 0RF Referrals: Physician,Unknown J [Physician, Medical] Stand Alone Forms: Work/School Release Print Language: [place] Islander
[2025-03-09 19:21] LABS: IDNOW Serial# 55D5AD1C; Strep A Nucleic Acid Positive (Negative)
[2025-03-09 19:46] VITALS: BP 131/81; PULSE 71; RESP 16; TEMP 36.6; O2SAT 98
== END 2025-03-09 19:46 | disposition home or self-care (01) ==
LOC: HO.ED 19:42
PROVIDERS: Physician Assistant Medical; Emergency Provider Student in an Organized Health Care Education/Training Program; PCP Family Medicine
DX: J02.0 Streptococcal pharyngitis (principal); M79.10 Myalgia, unspecified site; Z79.899 Other long term (current) drug therapy
CPT/HCPCS: 87651; 99282; 99283

== ENCOUNTER 2025-03-13 09:59 | Outpatient (REF) | payer MEDICAID, SELFPAY ==
--- OUTSIDE RECORDS SUMMARY | 2025-03-08 09:30 | XMS_ITS | Encounter Summary ---
Author Organization [employer] Address [address] [place] [address] [address] [place] [address] Care Team Providers Care Building Maintenance Engineer Name Role Phone Leandra Byrd DO Primary Care Provider + [phone] Ivonne Ledesma RN Unavailable [phone] Ada Rincon Unavailable Reason for Referral * Consultation (Routine) - Pending Review Specialty Diagnoses / Procedures Referred By Mishelac t Referred To Contact Physiatry Diagnoses Chronic bilateral low back pain with sciatica, sciatica laterality unspecified Leandra Byrd DO [address] [place] [address] Phone: tel: fax: Referral ID Status Reason Start Date Expiration Date Visits Requested Visits Authorized [id number] Pending Review Specialty Services Required 03/10/2025 03/10/2026 1 1 * Imaging (Routine) - Authorized Specialty Diagnoses / Procedures Referred By Contac t Referred To Contact Radiology Diagnoses Chronic bilateral low back pain with sciatica, sciatica laterality unspecified Upper back pain Procedures MR Thoracic Spine w/o Contrast Leandra Byrd DO [address] [place] [address] Phone: tel: fax: [address] Phone: tel: fax: Referral ID Status Reason Start Date Expiration Date V isits Requested Visits Authorized [id number] Authorized 03/10/2025 03/10/2026 1 1 * Imaging (Routine) - Authorized Specialty Diagnoses / Procedures Referred By Contac t Referred To Contact Radiology Diagnoses Breast pain, left Procedures BI US Breast Complete Left Leandra Byrd DO [address] [place] [address] Phone: tel: fax: [address] Phone: tel: fax: Referral ID Status Reason Start Date Expiration Date V isits Requested Visits Authorized [id number] Authorized 03/10/2025 03/10/2026 1 1 * Imaging (Routine) - Authorized Specialty Diagnoses / Procedures Referred By Diane t Referred To Contact Radiology Diagnoses Breast pain, left Procedures BI Mammogram Diagnostic Tomosynthesis Bilateral Leandra Byrd DO [address] [place] [address] Phone: tel: fax: [address] Phone: tel: fax: Referral ID Status Reason Start Date Expiration Date V isits Requested Visits Authorized [id number] Authorized 03/10/2025 03/10/2026 1 1 * Consultation (Routine) - Pending Review Specialty Diagnoses / Procedures Referred By Contac t Referred To Contact Plastic Surgery Diagnoses Upper back pain Macromastia Leandra Byrd DO [address] [place] [address] Phone: tel: fax: Referral ID Status Reason Start Date Expiration Date Visits Requested Visits Authorized [id number] Pending Review Specialty Services Required 03/10/2025 03/10/2026 1 1 Encounter Details Date Type Department Care Team (Latest Contact Info) Description 03/08/2025 9:30 AM EDT Office Visit [facility] [address] [place] [address] Leandra Byrd DO [address] [place] [address] Routine history and physical examination of adult [...] BMI 38.0-38.9,adult; Dietary counseling; Exercise counseling; Vaginal itching; Insomnia, unspecified type; Anxiety Social History Tobacco Use Types Packs/Day Years [...] your housing situation today? I have brayden sheldon 07/29/[address] you li [...] Questionnaire -2 Score 2 03/08/2025 11:03 AM EDT Sarah Jeffery MA * Little interest or pleasure in doing things Answer Date of Assessment Author Several days 03/08/2025 11:03 AM EDT Sarah Jeffery MA * Feeling down, depressed, or hopeless Answer Date of Assessment Author Several days 03/08/2025 11:03 AM EDT Sarah Jeffery MA * Trouble falling or staying asleep, [...] Not difficult at all 03/08/2025 11:03 AM Sarah Shrestha MA * Over the last 2 weeks, how often have you been bothered by any of the following problems? Question Answer Date of Assessment Author Feeling nervous, anxious, or on edge 2 03/08/2025 11:04 AM Sarah Mcadams MA Not being able to stop or co ntrol worrying 2 03/08/2025 11:04 AM Sarah Mcadams MA Worrying too much about diff erent things 2 03/08/2025 11:04 AM Sarah Mcadams MA Trouble relaxing 2 03/08/2025 11:04 AM [...] Type Priority Associated Diagnoses Orde r Schedule BI Mammogram Diagnostic Tomosynthesis Bilateral Imaging Routine Breast pain, left Expected: 03/10/2025, Expires: 05/10/2026 BI US Breast Complete Left Imaging Routine Breast pain, left Expected: 03/10/2025, Expires: 03/10/2026 MR Thoracic Spine w/o Contrast Imaging Routine Chronic bilateral low back pain with sciatica, sciatica laterality unspecified Upper back pain Expected: 03/10/2025, Expires: 03/10/2026 Scheduled Referrals Name Type Priority Associated Diagnoses Orde r Schedule Referral to Plastic Surgery Outpatient Referral Routine Upper back pain Macromastia Expected: 03/10/2025 (Approximate), Expires: 03/10/2026 Referral to Physiatry Outpatient Referral Routine Chronic bilateral low back pain with sciatica, sciatica laterality unspecified Expected: 03/10/2025 (Approximate), Expires: 03/10/2026 documented as of this encounter Procedures Procedure Name Priority Date/Time Associated Diagnosis Comments BACTERIAL VAGINOSIS PANEL Routine 03/08/2025 1:35 PM EDT Vaginal itching documented in this encounter Results * Bacterial Vaginosis Panel (03/08/2025 1:35 PM EDT) TRICHOMONAS VAGINALIS DETECTION BY PCR NOT DETECTED Not Detect [facility] BACTERIAL VAGINOSIS DETECTION BY PCR NEGATIVE Negative [facility] Comment:The BV organism targ ets of the Xpert Xpress MVP test can becommensal in women; Xpert Xpress MVP positive results forbacterial vaginosis should be considered in conjunction withother clinical and patient information to determine thedisease status. Organisms that are not detected by the XpertXpress MVP test have also been reported to be associatedwith BV and aerobic vaginitis.The Xpert Xpress MVP test performance has not been evaluatedin patients under the age of 14. FERN GROUP DETECTION BY PCR NOT DETECTED Not Detect [facility] Fern glab krusei PCR NOT DETECTED Not Detect [facility] Swab Vaginal structure / Unknown 03/08/2025 1:35 PM EDT 03/08/2025 7:29 PM EDT us Leandra Byrd DO LAB MICROBIOLOGY - GENERAL O RDERABLES Final Result [facility] [address] [place] [address] [phone] documented in this encounter Visit Diagnoses Diagnosis Routine history [...] Macromastia Hypertrophy of breast Anxiety and depression Insomnia, unspecified type Breast pain, left BMI 38.0-38.9,adult Dietary counseling Dietary surveillance and counseling Exercise counseling Vaginal itching Pruritus of genital organs Anxiety Anxiety state, unspecified documented in this encounter Additional Health Concerns Assessment Noted Time PHQ-9 Depression Total Score: 8 03/08/20 25 11:03 AM EDT documented as of this encounter Care Teams Building Maintenance Engineer Relationship Specialty Start Date End Date Leandra Byrd DO [address] [place] [address] PCP - General Family Medicine 06/29/18 Ivonne Ledesma RN [address] [place] [id number] Registered Nurse Family Medicine 02/16/25 Ada Rincon 02/16/25 documented as of this encounter
[2025-03-13 11:21] LABS: Hematocrit 42.3 % (37.0-47.0); Hemoglobin 14.0 g/dl (12.0-16.0); Mean Corpuscular HGB Conc 33.1 g/dl (31.0-35.0); Mean Corpuscular Hemoglobin 28.5 pg (27.0-33.0); Mean Corpuscular Volume 86.2 fL (80.0-98.0); NRBC Abs Auto 0.000 X10*3/uL (0.0-0.012); NRBC Pct Auto 0.0 /100WBC (0.0-0.2); Platelet Count 316 X10*3/uL (160-400); Red Blood Count 4.91 X10*6/uL (4.20-5.50); White Blood Count 4.4 X10*3/uL (4.8-10.8)
[2025-03-13 11:34] LABS: Hemoglobin A1C 167.1680 umol/L; Total Hemoglobin (HGBA1C) 3655.5564 umol/L
[2025-03-13 12:00] LABS: HIV Num 1 0.07 S/CO (0.00-0.99); ~HepC Num1 0.07 S/CO (0.00-0.79); ~Hepatitis C Antibody Nonreactive (Nonreactive)
[2025-03-13 12:15] LABS: Alanine Aminotransferase 35 U/L (0-31); Albumin Level 4.5 g/dL (3.5-5.0); Alkaline Phosphatase 62 U/L (39-117); Anion Gap 11 (12-20); Aspartate Amino Transferase 35 U/L (5-31); Blood Urea Nitrogen 10 mg/dL (9-16); Calcium 9.1 mg/dL (8.4-10.2); Carbon Dioxide 24 mmol/L (22-29); Chloride 106 mmol/L (96-108); Cholesterol 184 mg/dL (<200); Estimated Glomerular Filt Rate > 60; Free T4 (Free Thyroxine) 0.98 ng/dL (0.71-1.85); HDL Cholesterol 37 mg/dL (>40); Potassium 4.3 mmol/L (3.3-5.1); Sodium 137 mmol/L (135-145); Thyroid Stimulating Hormone 2.62 uIU/mL (0.32-4.0); Total Protein 7.2 g/dL (6.5-8.0); Triglycerides 109 mg/dL (<150)
--- OUTSIDE RECORDS SUMMARY | 2025-03-13 12:23 | XMS_ITS | Encounter Summary ---
Author Organization [employer] Address [address] [facility] 7t [place] [address] Care Team Providers Care Motor Scooter Mechanic Name Role Phone Leandra Byrd DO Primary Care Provider [phone] Ivonne Ledesma RN Unavailable [phone] Ada Rincon Unavailable Reason for Visit * Reason Onset Date Comments Med Refill 08/01/2022 Encounter Details Date Type Department Care Team (Late st Contact Info) Description 08/01/2022 Telephone [facility] MEDICINE [address] [place] [address] Leandra Byrd DO [address] [place] [address] Med Refill Social History Tobacco Use Types [...] 11:08 AM EST Medication was sent to [facility] Pharm[facility] on 07/23/22. * Telephone Encounter - Herb Merino - 08/01/2022 9:15 AM EST Tc from pt requesting med refill Iron 325 mg ( 65 mg iron ) documented in this encounter Plan of Treatment Not on file documented as of this encounter Visit Diagnoses Not on filedocumented in this encounter Care Teams Motor Scooter Mechanic Relationship Specialty Start Date End Date Leandra Byrd DO [address] [place] [address] PCP - General Family Medicine 06/29/18 Ivonne Ledesma, BLADIMIR [address] [place] [address] Registered Nurse Family Medicine 02/16/25 Ada Rincon 02/16/25 documented as of this encounter
--- OUTSIDE RECORDS SUMMARY | 2025-03-13 12:23 | XMS_ITS | Encounter Summary ---
Author Organization [employer] Address [address] [place] [address] [address] [place] [address] Care Team Providers Care Family Physician Name Role Phone Leandra Byrd DO Primary Care Provider [phone] Ivonne Ledesma RN Unavailable [phone] Ada Rincon Unavailable Encounter Details Date Type Department Care Team (Late st Contact Info) Description 10/17/[address] [facility] MEDICINE [address] [place] [address] Corrine Ramsay LPN Social History Tobacco Use [...] on filedocumented in this encounter Care Teams Family Physician Relationship Specialty Start Date End Date Leandra Byrd DO [address] [place] [address] PCP - General Family Medicine 06/29/18 Ivonne Ledesma, BLADIMIR [address] [place] [address] Registered Nurse Family Medicine 02/16/25 Ada Rincon 02/16/25 documented as of this encounter
--- OUTSIDE RECORDS SUMMARY | 2025-03-13 12:24 | XMS_ITS | Encounter Summary ---
Author Organization [employer] Address [address] [place] [address] [place], [place] [address] Care Team Providers Care Overnight Houseperson Name Role Phone Leandra Byrd DO Primary Care Provider [phone] Ivonne Ledesma RN Unavailable [phone] Ada Rincon Unavailable Encounter Details Date Type Department Care Team (Late st Contact Info) Description 07/04/2022 Orders Only [facility] MEDICINE [address] [place] [address] Whit Jimenez RN [address] [place] [address] Social History Tobacco Use Types Packs/Day Years [...] on filedocumented in this encounter Care Teams Overnight Houseperson Relationship Specialty Start Date End Date Leandra Byrd DO [address] [place] [address] PCP - General Family Medicine 06/29/18 Ivonne Ledesma, RN [address] [place] [address] Registered Nurse Family Medicine 02/16/25 Ada Rincon 02/16/25 documented as of this encounter
--- OUTSIDE RECORDS SUMMARY | 2025-03-13 12:24 | XMS_ITS ---
Author Organization [employer] Address [address] [facility] 7[address] [place] [address] Care Team Providers Care Vascular Manager Name Role Phone Leandra Byrd DO Primary Care Provider Ivonne Ledesma RN Unavailable [phone] Ada Rincon Unavailable CM Complex Status:Outreach In Progress (Enrolling) Start date:02/16/2025 Enrollment reason:ADT Feed Overview [facility] ED 02/15/25 UTI Case Team Name Relationship Phone Ivonne Ledesma RN(Responsible Staff) Registered Nurse [phone] Continued Care and Services Coordination
--- OUTSIDE RECORDS SUMMARY | 2025-03-13 12:24 | XMS_ITS | Encounter Summary ---
Author Organization [employer] Address [address] [facility] 7t [place] [address] Care Team Providers Care Mushroom Laborer Name Role Phone Leandra Byrd DO Primary Care Provider + [phone] Ivonne Ledesma RN Unavailable [phone] Ada Rincon Unavailable Reason for Visit * Reason Onset Date Comments Appointment Request 08/21/2023 Encounter Details Date Type Department Care Team ([facility] st Contact Info) Description 08/21/2023 Telephone [facility] MEDICINE [address] [place] [address] Leandra Byrd DO [address] [place] [address] Appointment Request Social History Tobacco Use Types [...] for work clearance. Please contact pt at [phone]. documented in this encounter Plan of Treatment Not on file documented as of this encounter Visit Diagnoses Not on filedocumented in this encounter Additional Health Concerns Assessment Noted Time PHQ-9 Depression Total Score: 9 05/07/20 23 11:38 AM EST documented as of this encounter Care Teams Mushroom Laborer Relationship Specialty Start Date End Date Leandra Byrd DO [address] [place] [address] PCP - General Family Medicine 06/29/18 Ivonne Ledesma, BLADIMIR [address] [place] [address] Registered Nurse Family Medicine 02/16/25 Ada Rincon 02/16/25 documented as of this encounter
--- OUTSIDE RECORDS SUMMARY | 2025-03-13 12:24 | XMS_ITS | Encounter Summary ---
Author Organization [employer] Address [address] [place] [address] [address] [place] [address] Care Team Providers Care Laboratory Director Name Role Phone Leandra Byrd DO Primary Care Provider [phone] Ivonne Ledesma RN Unavailable Ada Rincon Unavailable Encounter Details Date Type Department Care Team (Late st Contact Info) Description 07/10/2022 Orders Only [facility] MEDICINE [address] [place] [address] Corrine Ramsay LPN Social History Tobacco Use [...] on filedocumented in this encounter Care Teams Laboratory Director Relationship Specialty Start Date End Date Leandra Byrd DO [address] [place] [address] PCP - General Family Medicine 06/29/18 Ivonne Ledesma, BLADIMIR [address] [place] [address] Registered Nurse Family Medicine 02/16/25 Ada Ricnon 02/16/25 documented as of this encounter
--- OUTSIDE RECORDS SUMMARY | 2025-03-13 12:24 | XMS_ITS | Encounter Summary ---
Author Organization [employer] Address [address] [facility] 7t [place] [address] Care Team Providers Care Supervisor Stage Carpentry Name Role Phone Leandra Byrd DO Primary Care Provider + [phone] Ivonne Ledesma RN Unavailable [phone] Ada Rincon Unavailable Reason for Visit * Reason Onset Date Comments Med Refill 01/26/2024 Encounter Details Date Type Department Care Team (Late st Contact Info) Description 01/26/2024 Refill [facility] MEDICINE [address] [place] [address] Leandra Byrd DO [address] [place] [address] Dizziness Social History Tobacco Use Types Packs/Day [...] triage x2. Left voice message To call [facility] [phone]. Sent: 01/26/2024 3:45 PM EDT To: [facility] Front Office Subject: Appointment Request Appointment Request From: Sarah Schneider With Provider: Leandra Byrd DO [[facility] MEDICINE] Preferred Date Range: Any Preferred [...] Message First) Alexandra Silva routed conversation to [facility] Triage Nurse5 minutes ago (4:41 PM) documented in this encounter Plan of Treatment Not on file documented as of this encounter Visit Diagnoses Diagnosis Dizziness Dizziness and giddiness documented in this encounter Additional Health Concerns Assessment Noted Time PHQ-9 Depression Total Score: 9 05/07/20 23 11:38 AM EST documented as of this encounter Care Teams Supervisor Stage Carpentry Relationship Specialty Start Date End Date Leandra Byrd DO [address] [place] [address] PCP - General Family Medicine 06/29/18 Ivonne Ledesma, RN [address] [place] [address] Registered Nurse Family Medicine 02/16/25 Ada Rincon 02/16/25 documented as of this encounter
--- OUTSIDE RECORDS SUMMARY | 2025-03-13 12:24 | XMS_ITS | Encounter Summary ---
Author Organization [employer] Address [address] [facility] 7t [place] [address] Care Team Providers Care Critical Care Rn Name Role Phone Leandra Byrd DO Primary Care Provider + [phone] Ivonne Ledesma RN Unavailable [phone] Ada Rincon Unavailable Reason for Visit * Reason Onset Date Comments Medication Question 03/10/2025 Encounter Details Date Type Department Care Team ([facility] st Contact Info) Description 03/10/2025 Telephone [facility] MEDICINE [address] [place] [address] Leandra Byrd DO [address] [place] [address] Medication Question Social History Tobacco Use Types Packs/Day Years [...] encounter Miscellaneous Notes * Telephone Encounter - Alisa Banks RN - 03/10/2025 4:38 PM EDT Reviewed message below with PCP, rxs sent * Telephone Encounter - Fabiana Mabry - 03/10/2025 11:36 AM EDT Tc from pt requesting for new script for anxiety medication that was spoken of during last pe apt on 03/08 Contact pt at [phone] documented in this encounter Plan of Treatment Not on file documented as of this encounter Visit Diagnoses Not on filedocumented in this encounter Additional Health Concerns Assessment Noted Time PHQ-9 Depression Total Score: 8 03/08/20 25 11:03 AM EDT documented as of this encounter Care Teams Critical Care Rn Relationship Specialty Start Date End Date Leandra Byrd DO [address] [place] [address] PCP - General Family Medicine 06/29/18 Ivonne Ledesma, RN [address] [place] [address] [place] [address] Registered Nurse Family Medicine 02/16/25 Ada Rincon 02/16/25 documented as of this encounter
--- OUTSIDE RECORDS SUMMARY | 2025-03-13 12:24 | XMS_ITS | Encounter Summary ---
Author Organization [employer] Address [address] [place] [address] [address] [address] Care Team Providers Care Catering Operations Manager Name Role Phone Leandra Byrd DO Primary Care Provider [phone] Ivonne Ledesma RN Unavailable [phone] Ada Rincon Unavailable Encounter Details Date Type Department Care Team (Late st Contact Info) Description 07/21/2022 Orders Only [facility] PEDS [address] [place] [address] Leandra Malone LPN Social History Tobacco Use [...] on filedocumented in this encounter Care Teams Catering Operations Manager Relationship Specialty Start Date End Date Leandra Byrd DO [address] [place] [address] PCP - General Family Medicine 06/29/18 Ivonne Ledesma, BLADIMIR [address] [place] [address] Registered Nurse Family Medicine 02/16/25 Ada Rincon 02/16/25 documented as of this encounter
--- OUTSIDE RECORDS SUMMARY | 2025-03-13 12:24 | XMS_ITS | Encounter Summary ---
Author Organization [employer] Address [address] [facility] 7t [place] [address] Care Team Providers Care Manager Sports Name Role Phone Leandra Byrd DO Primary Care Provider [phone] Ivonne Ledesma RN Unavailable [phone] Ada Rincon Unavailable Encounter Details Date Type Department Care Team ([facility] st Contact Info) Description 03/10/2025 Patient Outreach [facility] MEDICINE [address] [place] [address] Leandra Byrd DO [address] [place] [address] Social History Tobacco Use Types Packs/Day Years [...] documented as of this encounter Care Teams Manager Sports Relationship Specialty Start Date End Date Leandra Byrd DO [address] [place] [address] PCP - General Family Medicine 06/29/18 Ivonne Ledesma, BLADIMIR [address] [place] [address] Registered Nurse Family Medicine 02/16/25 Ada Rincon 02/16/25 documented as of this encounter
--- OUTSIDE RECORDS SUMMARY | 2025-03-13 12:24 | XMS_ITS | Encounter Summary ---
Author Organization [employer] Address [address] [facility] [address] [place] [address] Care Team Providers Care Road Freight Brake Coupler Name Role Phone Carson Leandra Primary Care Provider + [phone] Ivonne Ledesma RN Unavailable [phone] Ada Rincon Unavailable Encounter Details Date [...] irritable 1 03/08/2025 11:04 AM YAS[facility] Sarah Jefefry [place] Feeling afraid as if somethi ng [...] documented as of this encounter Care Teams Road Freight Brake Coupler Relationship Specialty Start Date End Date Leandra Byrd DO [address] [place] [address] PCP - General Family Medicine 06/29/18 Ivonne Ledesma RN [address] [place] [address] Registered Nurse Family Medicine 02/16/25 Ada Rincon 02/16/25 documented as of this encounter
--- OUTSIDE RECORDS SUMMARY | 2025-03-13 12:24 | XMS_ITS | Encounter Summary ---
Author Organization [employer] Address [address] [facility] [address] [place] [address] Care Team Providers Care Historical Records Administrator Name Role Phone Leandra Byrd DO Primary Care Provider + [phone] Ivonne Ledesma RN Unavailable [phone] Ada Rincon Unavailable Reason for Visit * Reason Comments Med Refill Encounter Details Date Type Department Care Team (Late st Contact Info) Description 07/17/2023 Refill [facility] [address] [place] [address] Leandra Byrd DO [address] [place] [address] Insomnia, unspecified Social History Tobacco Use Types [...] documented as of this encounter Care Teams Historical Records Administrator Relationship Specialty Start Date End Date Leandra Byrd DO [address] [place] [address] PCP - General Family Medicine 06/29/18 Ivonne Ledesma RN [address] [place] [address] Registered Nurse Family Medicine 02/16/25 Ada Rincon 02/16/25 documented as of this encounter
--- OUTSIDE RECORDS SUMMARY | 2025-03-13 12:24 | XMS_ITS | Encounter Summary ---
Author Organization [employer] Address [address] [place] [address] [address] [place] [address] Care Team Providers Care Production Graphic Designer Name Role Phone Leandra Byrd DO Primary Care Provider [phone] Ivonne Ledesma RN Unavailable [phone] Ada Rincon Unavailable Reason for Visit * Reason Comments Med Refill Encounter Details Date Type Department Care Team (Late st Contact Info) Description 03/31/2023 Refill [facility] [address] [place] [address] Leandra Byrd DO [address] [place] [address] Vitamin D deficiency Social History Tobacco Use [...] deficiency documented in this encounter Care Teams Production Graphic Designer Relationship Specialty Start Date End Date Leandra Byrd DO [address] [place] [address] PCP - General Family Medicine 06/29/18 Ivonne Ledesma RN [address] [place] [address] [place] [address] Registered Nurse Family Medicine 02/16/25 Ada Rincon 02/16/25 documented as of this encounter
--- OUTSIDE RECORDS SUMMARY | 2025-03-13 12:24 | XMS_ITS | Encounter Summary ---
Author Organization [employer] Address [address] [place] [address] [address] [place] [address] Care Team Providers Care Breaker Operator Name Role Phone Leandra Byrd DO Primary Care Provider [phone] Ivonne Ledesma RN Unavailable [phone] Ada Rincon Unavailable Encounter Details Date Type Department Care Team (Late st Contact Info) Description 06/25/2022 Orders Only [facility] [address] [place] [address] Leandra Malone LPN Social History Tobacco Use [...] on filedocumented in this encounter Care Teams Breaker Operator Relationship Specialty Start Date End Date Leandra Byrd DO [address] [place] [address] PCP - General Family Medicine 06/29/18 Ivonne Ledesma, BLADIMIR [address] [place] [address] Registered Nurse Family Medicine 02/16/25 Ada Rincon 02/16/25 documented as of this encounter
--- OUTSIDE RECORDS SUMMARY | 2025-03-13 12:24 | XMS_ITS | Encounter Summary ---
Author Organization [employer] Address [address] [facility] 7[address] [place] [address] Care Team Providers Care Optical Engineering Manager Name Role Phone Leandra Byrd DO Primary Care Provider + [phone] Ivonne Ledesma RN Unavailable [phone] Ada Rincon Unavailable Reason for Visit * Reason Comments Med Refill Encounter Details Date Type Department Care Team ([facility] st Contact Info) Description 11/13/2023 Refill [facility] [address] [place] [address] Leandra Byrd DO [address] [place] [address] Insomnia, unspecified Social History Tobacco Use Types [...] documented as of this encounter Care Teams Optical Engineering Manager Relationship Specialty Start Date End Date Leandra Byrd DO [address] [place] [address] PCP - General Family Medicine 06/29/18 Ivonne Ledesma, BLADIMIR [address] [place] [address] Registered Nurse Family Medicine 02/16/25 Ada Rincon 02/16/25 documented as of this encounter
--- OUTSIDE RECORDS SUMMARY | 2025-03-13 12:24 | XMS_ITS | Clinical Summary ---
Author Organization [employer] Address [address] [facility] [address] [place] [address] Care Team Providers Care Aviation Manager Name Role Phone CarsonLeandra Primary Care Provider [phone] Ivonne Ledesma RN Unavailable [phone] Ada Rincon Unavailable Allergies Active Allergy [...] MOUTH EVERY 4 HOURS NEEDED 023 Active diphenhydrAMINE (BENADryl) 25 MG tabletIndications: Rash Take 1 tablet (25 mg) by mouth every 6 (six) hours if needed for itching. 30 tablet 024 Active docusate sodium (Colace) 100 MG capsuleIndications :Constipation, unspecified constipation type TAKE 1 CAPSULE BY MOUTH TWICE DAILY NEEDED FOR CONSTIPATION 180 capsule 1 024 Active EPINEPHrine (Epipen-JR) 0.15 MG/0.3ML injection syringe Inject 0.15 mg into the shoulder, thigh, or buttocks as needed for anaphylaxis. 2 each 024 Active meclizine (Antivert) 25 MG tabletIndications: Dizziness Take 1 tablet (25 mg) by mouth if needed in the morning, at noon, and at bedtime for dizziness. 30 tablet 1 024 Active albuterol 108 (90 Base) MCG/ACT inhalerIndications :Mild persistent asthma with exacerbation Inhale 2 puffs every 6 (six) hours if needed for wheezing. 18 g 024 Active albuterol (2.5 MG/3ML) 0.083% nebulizer solution Take 3 mL (2.5 mg) by nebulization every 4 (four) hours if needed for wheezing. 75 mL 11 024 Active Nebulizer misc 1 kit Every 4-6 hours as needed (SOB and wheezing). Acelleron nebulizer given in walk in center 02/23/2024. Teaching provided at time of visit Active ibuprofen 400 MG tablet Take 1 tablet (400 mg) by mouth every 8 (eight) hours if needed for mild pain. 40 tablet 2 024 Active loratadine (Claritin) 10 MG tabletIndications: Seasonal allergic rhinitis, unspecified trigger TAKE 1 TABLET BY MOUTH EVERY DAY 90 tablet 3 025 Active Ferrous Sulfate (iron) 325 (65 Fe) MG tabletIndications: Anemia, unspecified type TAKE 1 TABLET BY MOUTH TWICE DAILY 180 tablet 3 025 Active SUMAtriptan (Imitrex) 50 MG tablet TAKE 1 TABLET BY MOUTH AT ONSET OF MIGRAINE. MAY REPEAT ONCE AFTER 2 HOURS IF NEEDED. DO NOT EXCEED 2 DOSES IN 24 hours 9 tablet 2 025 Active Diclofenac Sodium 1 % gel APPLY 2 GRAMS TOPICALLY TO AFFECTED AREA(S) 4 TIMES A DAY IN THE MORNING, AT NOON, IN THE EVENING, AND AT BEDTIME NEEDED FOR PAIN 100 g 5 025 Active levothyroxine (Synthroid, Levoxyl) 50 MCG tabletIndications: Hypothyroidism, unspecified type TAKE 1 TABLET BY MOUTH EVERY DAY 90 tablet 1 025 Active naproxen (Naprosyn) 500 MG tablet TAKE 1 TABLET BY MOUTH TWICE DAILY IN THE MORNING AND AT BEDTIME NEEDED FOR MILD PAIN 40 tablet 1 025 Active Eye Itch Relief 0.035 % solutionIndication s:Seasonal allergic rhinitis, unspecified trigger ADMINISTER 1 DROP into AFFECTED EYE(S) IN THE MORNING AND AT BEDTIME NEEDED FOR ITCHING 5 mL 3 Active Ascorbic Acid (vitamin C) 250 MG tabletIndications: Iron deficiency anemia, unspecified iron deficiency anemia type TAKE 1 TABLET BY MOUTH TWICE DAILY WITH Ferrous Sulfate 180 tablet 1 Active zolpidem (Ambien) 10 MG tabletIndications: Insomnia, unspecified TAKE 1 TABLET BY MOUTH EVERY DAY AT BEDTIME NEEDED FOR SLEEP 30 tablet 3 Active D3 Super Strength 50 MCG (2000 UT) capsuleIndications :Vitamin D deficiency TAKE 1 CAPSULE BY MOUTH EVERY DAY 90 capsule Active lidocaine (Lidoderm) 5 % patch APPLY 3 PATCHES TOPICALLY TO AFFECTED AREA(S) ONCE DAILY LEAVE ON FOR 12 HOURS AND OFF FOR 12 HOURS 90 patch Active sertraline (Zoloft) 25 MG tablet Take 1 tablet (25 mg) by mouth Once per day. 30 tablet 2 025 2025 Active hydrOXYzine HCl (Atarax) 25 MG tablet Take 1 tablet (25 mg) by mouth every 6 (six) hours if needed for anxiety. 40 tablet 1 025 2024 Active melatonin 5 MG tabletIndications: Insomnia, unspecified type Take 1-2 tablets (5-10 mg) by mouth if needed at bedtime (insomnia). 60 tablet 2 Active fluticasone furoate (Arnuity Ellipta) 100 MCG/ACT inhaler Inhale 1 puff Once per day. Rinse mouth with water after use to reduce aftertaste and incidence of candidiasis. Do not swallow. 90 each Active fluticasone (Flonase) 50 MCG/ACT nasal spray Shake gently. Before first use, prime pump. After use, clean tip and replace cap.INSTILL 2 SPRAYS IN EACH NOSTRIL ONCE DAILY 48 g Active montelukast (Singulair) 10 MG tablet Take 1 tablet (10 mg) by mouth at bedtime. 90 tablet 3 025 2025 Active amitriptyline (Elavil) 10 MG tablet Take 1-2 tablets (10-20 mg) by mouth at bedtime. 60 tablet 5 025 Active omeprazole (PriLOSEC) [address] capsuleIndications :Chronic gastroesophageal reflux disease Take 1 capsule (20 mg) by mouth before breakfast and before evening meal. Do not crush or chew. 180 capsule 3 025 Active tiZANidine (Zanaflex) 2 MG tablet Take 1 tablet (2 mg) by mouth every 8 (eight) hours if needed for muscle spasms. 60 tablet 1 025 Active acetaminophen (Arthritis Pain Relief) 650 MG ER tablet Take 1 tablet (650 mg) by mouth every 8 (eight) hours if needed for mild pain. Do not crush, chew, or split. 60 tablet 3 025 Active montelukast (Singulair) 10 MG tablet Take 10 mg by mouth at bedtime. 022 2024 Discontinued(R eorder (will not trigger notification to Pharmacy)) acetaminophen (Arthritis Pain Relief) 650 MG ER tablet Take 1 tablet (650 mg) by mouth every 8 (eight) hours if needed for mild pain. Do not crush, chew, or split. 50 tablet 3 024 2024 Discontinued(R eorder (will not trigger notification to Pharmacy)) lidocaine (Lidoderm) 5 % patch Apply 3 patches topically Once per day. Remove & discard patch within 12 hours or as directed by MD. 90 patch 3 024 2024 Discontinued fluticasone furoate (Arnuity Ellipta) 100 MCG/ACT inhaler Inhale 1 puff Once per day. Rinse mouth with water after use to reduce aftertaste and incidence of candidiasis. Do not swallow. 1 each 024 2024 Discontinued(R eorder (will not trigger notification to Pharmacy)) fluticasone (Flonase) 50 MCG/ACT nasal spray Shake gently. Before first use, prime pump. After use, clean tip and replace cap.INSTILL 2 SPRAYS IN EACH NOSTRIL ONCE DAILY 48 g 024 2024 Discontinued(R eorder (will not trigger notification to Pharmacy)) D3 Super Strength 50 MCG (2000 UT) capsuleIndications :Vitamin D deficiency TAKE 1 CAPSULE BY MOUTH EVERY DAY 90 capsule 1 025 2024 Discontinued tiZANidine (Zanaflex) 2 MG tablet TAKE 1 TABLET BY MOUTH THREE TIMES DAILY IN THE MORNING, AT NOON AND AT BEDTIME NEEDED FOR MUSCLE SPASMS 60 tablet 1 025 2024 Discontinued(R eorder (will not trigger notification to Pharmacy)) amitriptyline (Elavil) 10 MG tablet TAKE 1 OR 2 TABLETS BY MOUTH EVERY DAY AT BEDTIME 60 tablet 5 025 2024 Discontinued(R eorder (will not trigger notification to Pharmacy)) melatonin 5 MG tabletIndications: Insomnia, unspecified type TAKE 1 OR 2 TABLETS BY MOUTH EVERY DAY 3 HOURS BEFORE BEDTIME NEEDED for SLEEP 60 tablet 2 025 2024 Discontinued(R eorder (will not trigger notification to Pharmacy)) omeprazole (PriLOSEC) [address] capsuleIndications :Chronic gastroesophageal reflux disease TAKE 1 CAPSULE BY MOUTH TWICE DAILY BEFORE MEALS 180 capsule 1 025 2024 Discontinued(R eorder (will not trigger notification to Pharmacy)) Active Problems Problem Noted Date Diagnosed Date Anxiety 03/10/2025 Cervical spondylosis 05/05/2024 Chronic neck pain 05/05/2024 Chronic migraine 05/05/2024 PAT (paroxysmal atrial tachycardia) 01/01/2024 Insomnia 09/11/2023 History of tobacco use 09/11/2023 BMI 38.0-38.9,adult 08/20/2023 Anemia 02/09/2023 History of COVID-19 02/09/2023 Hypothyroidism 02/09/2023 Chronic allergic rhinitis 02/21/2016 Mild persistent asthma 02/21/2016 Chronic low back pain 02/21/2016 Depression 02/21/2016 Chronic gastroesophageal reflux disease 02/21/20 16 Resolved Problems Problem Noted Date Diagnosed Date Resolved Date Cough in adult 09/12/2024 03/10/2025 COVID-19 09/12/2024 03/10/2025 Assessment & Plan (09/12/2024 10:32 AM EDT): Pt with positive Covid test, was vaccinated this season, declines paxlovid, Reassuring resp exam Monitor for worsening symptoms, note given for work Upper respiratory tract infection 06/17/2024 03/10/2025 Assessment & Plan (06/17/2024 5:57 PM EST): Children recently dx with strep pharyngitis, test negative Exam reassuring, Gastroesophageal reflux dise ase with esophagitis 06/17/2024 03/10/2025 Assessment & Plan (06/17/2024 5:57 PM EST): Prn sulcarafate rx, Continue ppi Diarrhea of infectious origin 06/17/2024 03/10/2025 Diarrhea 06/17/2024 03/10/2025 Assessment & Plan (06/17/2024 5:56 PM EST): Prn immodium, sparing use reviewed Return to clinic for worsening symptoms , severe abdominal pain, or failure to resolve Cubital tunnel syndrome on left 05/05/2024 03/10/2025 Mild persistent asthma with exacerbation 02/22/2024 05/05/2024 Assessment & Plan (02/22/2024 11:57 AM EDT): Patient educated to avoid asthma triggers Albuterol inhaler q 4-6 hrs Prednisone 40mg for 5 days If symptoms persist or worse report back GBS carrier 01/01/2024 05/05/2024 History of tachycardia 01/01/202405/05 Mechanical complication of i ntrauterine contraceptive device 01/01/2024 03/10/2025 Rash 09/14/2023 05/05/2024 Assessment & Plan (09/14/2023 [...] Encounters Date Type Department Care Team Description 03/10/[address] [address] Leandra Byrd DO Medication Question 03/10/2025 Patient Outreach [address] [address] Leandra Byrd DO 03/08/2025 9:30 AM EDT Office Visit [address] [address] Leandra Byrd DO Routine history and physical examination [...] counseling; Vaginal itching; Insomnia, unspecified type; Anxiety 03/08/2025 Travel 03/07/2025 Travel 03/03/[address] [address] Leandra Byrd DO Chart Prep 03/01/2025 Patient Outreach [address] [address] Leandra Byrd DO Pre-visit Planning (Pre-visit planning - LVM ) 02/17/2025 Patient Outreach [address] [address] Leandra Byrd DO Care Coordination (CM/CHW outreach) 02/16/2025 Patient Outreach [address] [address] Leandra Byrd DO Care Coordination (CHW chart review) 02/16/2025 Patient Outreach [address] [address] Leandra Byrd DO Care Management (CM- chart review) 02/16/2025 Patient Outreach [address] [address] Leandra Byrd DO 02/15/2025 Orders Only GENERIC EXTERNAL DATA DEPARTMENT Provider, Generic External Data 02/13/[address] [address] Leandra Byrd DO Vitamin D deficiency 01/20/[address] [address] Leandra Byrd DO Recall Appointment 01/20/2025 Travel 01/16/[address] [address] Leandra Byrd DO Appointment Request 01/03/2025 Orders Only GENERIC EXTERNAL DATA DEPARTMENT Provider, Generic External Data from Last 3 Months Immunizations Immunization Administration Dates Next Due DTP 11/02/1990, 9,02/07/1987,12/12,1986 HPV 9-Valent 02/23/2024 HPV, Quadrivalent 01/10/2013,11/08/2012 Hep B, Adolescent or Pediatric 08/21/1998,1995,01/25/1996 Hib ([facility]) 07/03/1988 IPV 07/03/1988 Influenza Injectable Quadriv alant [...] is your housing situation today? I have braydenkelly sheldon 07/29/[address] you [...] 03/08/2026 03/08/2025, 03/08/20 Tobacco Screening 03/08/2026 03/08/2025 Diabetes: Hemoglobin A1C 03/13/2026 03/13/2025, 0311/2023 Cervical Cancer Screening 06/10/2028 HPV/Cotest 06/10/2028 06/10/2023 Pap Smear 06/10/2028 06/10/2023 Lipid Panel 03/13/2030 03/13/2025, 09/22/2023 DTaP/Tdap/Td Vaccines (10 - Td or [...] Procedure Name Priority Date/Time Associated Diagnosis Comments BASIC METABOLIC PANEL Routine 03/13/2025 10:03 AM EDT Mild persistent asthma without complication Chronic allergic rhinitis Hypothyroidism, unspecified type Anemia, unspecified type Chronic gastroesophageal reflux disease Chronic migraine Chronic neck pain Chronic bilateral low back pain with sciatica, sciatica laterality unspecified Cubital tunnel syndrome on left Hearing loss of left ear, unspecified hearing loss type Upper back pain Macromastia Healthcare maintenance CBC Routine 03/13/2025 10:03 AM EDT Mild persistent asthma without complication Chronic allergic rhinitis Hypothyroidism, unspecified type Anemia, unspecified type Chronic gastroesophageal reflux disease Chronic migraine Chronic neck pain Chronic bilateral low back pain with sciatica, sciatica laterality unspecified Cubital tunnel syndrome on left Hearing loss of left ear, unspecified hearing loss type Upper back pain Macromastia Healthcare maintenance HEMOGLOBIN A1C Routine 03/13/2025 10:03 AM EDT Mild persistent asthma without complication Chronic allergic rhinitis Hypothyroidism, unspecified type Anemia, unspecified type Chronic gastroesophageal reflux disease Chronic migraine Chronic neck pain Chronic bilateral low back pain with sciatica, sciatica laterality unspecified Cubital tunnel syndrome on left Hearing loss of left ear, unspecified hearing loss type Upper back pain Macromastia Healthcare maintenance HEPATIC FUNCTION PANEL Routine 03/13/2025 10:03 AM EDT Mild persistent asthma without complication Chronic allergic rhinitis Hypothyroidism, unspecified type Anemia, unspecified type Chronic gastroesophageal reflux disease Chronic migraine Chronic neck pain Chronic bilateral low back pain with sciatica, sciatica laterality unspecified Cubital tunnel syndrome on left Hearing loss of left ear, unspecified hearing loss type Upper back pain Macromastia Healthcare maintenance VITAMIN D,25-OH,TOTAL,IA Routine 03/13/2025 10:03 AM EDT Mild persistent asthma without complication Chronic allergic rhinitis Hypothyroidism, unspecified type Anemia, unspecified type Chronic gastroesophageal reflux disease Chronic migraine Chronic neck pain Chronic bilateral low back pain with sciatica, sciatica laterality unspecified Cubital tunnel syndrome on left Hearing loss of left ear, unspecified hearing loss type Upper back pain Macromastia Healthcare maintenance TSH Routine 03/13/2025 10:03 AM EDT Mild persistent asthma without complication Chronic allergic rhinitis Hypothyroidism, unspecified type Anemia, unspecified type Chronic gastroesophageal reflux disease Chronic migraine Chronic neck pain Chronic bilateral low back pain with sciatica, sciatica laterality unspecified Cubital tunnel syndrome on left Hearing loss of left ear, unspecified hearing loss type Upper back pain Macromastia Healthcare maintenance LIPID PANEL, STANDARD Routine 03/13/2025 10:03 AM EDT Mild persistent asthma without complication Chronic allergic rhinitis Hypothyroidism, unspecified type Anemia, unspecified type Chronic gastroesophageal reflux disease Chronic migraine Chronic neck pain Chronic bilateral low back pain with sciatica, sciatica laterality unspecified Cubital tunnel syndrome on left Hearing loss of left ear, unspecified hearing loss type Upper back pain Macromastia Healthcare maintenance T4, FREE Routine 03/13/2025 10:03 AM EDT Mild persistent asthma without complication Chronic allergic rhinitis Hypothyroidism, unspecified type Anemia, unspecified type Chronic gastroesophageal reflux disease Chronic migraine Chronic neck pain Chronic bilateral low back pain with sciatica, sciatica laterality unspecified Cubital tunnel syndrome on left Hearing loss of left ear, unspecified hearing loss type Upper back pain Macromastia Healthcare maintenance BACTERIAL VAGINOSIS PANEL Routine 03/08/2025 1:35 PM EDT Vaginal itching HCG, QL, URINE Routine 02/15/2025 3:32 PM [...] Recently Relevant to Health Maintenance Results * Vitamin D, 25-Hydroxy, Total, Immunoassay (03/13/2025 10:03 AM EDT) Vitamin D 25-OH Total 40.0 >30 ng/mL [facility] Comment: Health Based Reference Values*< 20 ng/mL [id number] ng/mL Insufficient> 30 ng/mL Sufficient*Minoo [place]. N Engl J Med. 2007;[id number] is no well-established upper level of normal vitamin Dlevels. Some laboratories use 50 ng/mL as an upper limit ofnormal. However, toxicity is patient-dependent and may occurat any level. Careful correlation with the patient'spresentation is necessary and, if there is concern forvitamin D toxicity, treatment should be consideredirrespective of the serum level.Care must be taken in interpreting Vitamin D results fromdifferent laboratories and methodologies. Published datademonstrated that results from patients undergoinghemodialysis may show a negative bias when tested withvarious automated 25-OH vitamin D assays when compared toLC-MS/MS.When testing samples from patients whose predominant form ofVitamin D is Vitamin D2, such as patients receiving VitaminD2 supplementation, results that are subtherapeutic shouldbe confirmed with another method such as LC-MS/MS. Blood Venous blood specimen / Unknown 03/13/2025 10:03 AM EDT 03/13/2025 11:12 AM EDT us Leandra Byrd DO LAB BLOOD ORDERABLES Final R esult [facility] [address] [place] [phone] * (ABNORMAL) CBC (03/13/2025 10:03 AM EDT) White Blood Count 4.4(L) 4.8 - 10.8 X10*3/uL [facility] Red Blood Count 4.91 4.20 - 5.50 X10*6/uL [facility] Hemoglobin 14.0 12.0 - 16.0 g/dl [facility] Hematocrit 42.3 37.0 - 47.0 % [facility] Mean Corpuscular Volume 86.2 80.0 - 98.0 fL [facility] Mean Corpuscular Hemoglobin 28.5 27.0 - 33.0 pg [facility] Mean Corpuscular HGB Conc 33.1 31.0 - 35.0 g/dl [facility] Red Cell Distribution Width 12.4 11.0 - 16.0 % [facility] Platelet Count 316 160 - 400 X10*3/uL [facility] Mean Platelet Volume 10.0 9.4 - 12.3 fL [facility] NRBC Pct Auto 0.0 0.0 - 0.2 /100WBC [facility] NRBC Abs Auto 0.000 0.0 - 0.012 X10*3/uL [facility] Blood Venous blood specimen / Unknown 03/13/2025 10:03 AM EDT 03/13/2025 11:04 AM EDT Leandra Byrd DO LAB BLOOD ORDERABLES Final R esult Performing Organization Address City/[facility]/ZIP Co de Phone Number [facility] [address] [place] [phone] * TSH (03/13/2025 10:03 AM EDT) Thyroid Stimulating Hormone 2.62 0.32 - 4.0 uIU/mL [facility] Comment:Note: A sustained TS H level above 2.5 uIU/mL may warrant further investigation. TSH 3rd Generation ([facility]) Blood Venous blood specimen / Unknown 03/13/2025 10:03 AM EDT 03/13/2025 11:12 AM EDT Leandra Byrd DO LAB BLOOD ORDERABLES Final R esult Performing Organization Address City/[facility]/ZIP Co de Phone Number [facility] [address] [place] [phone] * T4, Free (03/13/2025 10:03 AM EDT) Free T4 (Free Thyroxine) 0.98 0.71 - 1.85 ng/dL [facility] Blood Venous blood specimen / Unknown 03/13/2025 10:03 AM EDT 03/13/2025 11:12 AM EDT Leandra Byrd DO LAB BLOOD ORDERABLES Final R esult Performing Organization Address City/State/[facility] Co de Phone Number [facility] [address] [place] [phone] * (ABNORMAL) Hemoglobin A1c (03/13/2025 10:03 AM EDT) Hemoglobin A1c 6.3(H) <6.0 % [facility] Comment:Hemoglobin A1C Refer ence Range Adults: 4.8 - 6.0 % Non diabetic: < 6.0 % Goal: < 7.0 %Additional Action Suggested: > 8.0 %Note: Hemoglobin A1c results are invalid for patients with abnormal amounts of HbF. Blood transfusions may impact the HbA1c concentration in the patient sample. Estimated Average Glucose 134 mg/dL [facility] Comment:eAG = Estimated ave rage glucose which is %A1C expressed asaverage glucose, using the formula of the [id number] Glucose study (ADAG), Diabetes Care, Vol.31,#8,2007 Blood Venous blood specimen / Unknown 03/13/2025 10:03 AM EDT 03/13/2025 11:04 AM EDT us Leandra Byrd DO LAB BLOOD ORDERABLES Final R esult Performing Organization Address [facility] Co de Phone Number [facility] [address] [place] [phone] * (ABNORMAL) Hepatic Function Panel (03/13/2025 10:03 AM EDT) Bilirubin, Total 0.5 0.0 - 1.0 mg/dL [facility] Bilirubin, Direct 0.2 0.0 - 0.5 mg/dL [facility] Aspartate Amino Transferase 35(H) 5 - 31 U/L [facility] Alanine Aminotransferase 35(H) 0 - 31 U/L [facility] Total Protein 7.2 6.5 - 8.0 g/dL [facility] Albumin Level 4.5 3.5 - 5.0 g/dL [facility] Alkaline Phosphatase 62 39 - 117 U/L [facility] Blood Venous blood specimen / Unknown 03/13/2025 10:03 AM EDT 03/13/2025 11:12 AM EDT Leandra Carson LAB BLOOD ORDERABLES Final R esult Performing Organization Address [facility] Co de Phone Number [facility] [address] [place] [phone] * (ABNORMAL) Lipid Panel, Standard (03/13/2025 10:03 AM EDT) Triglycerides 109 <150 mg/dL [facility] Comment:Desirable Triglyceri de: less than 150 mg/dLBorderline High Triglyceride 150-199 mg/dLHigh Triglyceride: 200-499 mg/dLVery High Triglyceride: greater than or equal to 5OO mg/dL Cholesterol 184 <200 mg/dL [facility] Comment:Desirable Cholestero l: less than 200 mg/dLBorderline High Cholesterol: 200-239 mg/dLHigh Cholesterol: greater than 239 mg/dL LDL Cholesterol Calculated 126(H) <100 mg/dL [facility] Comment:Desirable LDL: less than 100 mg/dLNear Optimal/Above Optimal LDL: 110- 129 mg/dLBorderline High LDL: 130-159 mg/dLHigh LDL: 160-189 mg/dLVery High LDL: greater than or equal to 190 mg/dL HDL Cholesterol 37(L) >40 mg/dL [facility] Comment:Desirable HDL: great er than 40 mg/dL Note: This HDL assay may give artificially low results in patients with liver disease. Blood Venous blood specimen / Unknown 03/13/2025 10:03 AM EDT 03/13/2025 11:12 AM EDT us Leandra Byrd DO LAB BLOOD ORDERABLES Final R esult Performing Organization Address City/[facility]/ZIP Co de Phone Number [facility] [address] [place] [phone] * (ABNORMAL) Basic Metabolic Panel (03/13/2025 10:03 AM EDT) Sodium 137 135 - 145 mmol/L [facility] Potassium 4.3 3.3 - 5.1 mmol/L [facility] Chloride 106 96 - 108 mmol/L [facility] Carbon Dioxide 24 22 - 29 mmol/L [facility] Anion Gap 11(L) 12 - 20 [facility] Urea Nitrogen (BUN) 10 9 - 16 mg/dL [facility] Creatinine, Serum 0.76 0.5 - 1.4 mg/dL [facility] Estimated Glomerular Filt Rate >60 [facility] Comment:Chronic Kidney Disea se: Estimated GFR < 60 mL/min/[id number] Kidney Disease: Estimated GFR < 15 mL/min/1.73m2 Glucose 125(H) 60 - 115 mg/dL [facility] Calcium 9.1 8.4 - 10.2 mg/dL [facility] Blood Venous blood specimen / Unknown 03/13/2025 10:03 AM EDT 03/13/2025 11:12 AM EDT us Leandra Byrd DO LAB BLOOD ORDERABLES Final R esult [facility] [address] [place] [phone] * Bacterial Vaginosis Panel (03/08/2025 1:35 PM EDT) Pathologist [facility] TRICHOMONAS VAGINALIS DETECTION BY PCR NOT DETECTED Not Detect [facility] BACTERIAL VAGINOSIS DETECTION BY PCR NEGATIVE Negative [facility] Comment:The BV organism targ ets of [...] DETECTION BY PCR NOT DETECTED Not Detect [facility] Fern glab krusei PCR NOT DETECTED Not Detect [facility] Swab Vaginal structure / Unknown 03/08/2025 1:35 PM EDT 03/08/2025 7:29 PM EDT us Leandra Byrd DO LAB MICROBIOLOGY - GENERAL O RDERABLES Final Result Performing Organization Address City/[facility]/ZIP Co de Phone Number [facility] [address] [place] [phone] * (ABNORMAL) Urinalysis, Complete, with Reflex to Culture (02/15/2025 3:32 PM EDT) Color Urine Yellow [facility] Appearance Urine Clear [facility] PH 5.5 5.0 - 9.0 [facility] Glucose Urine UA Negative Negative mg/dL [facility] Urine Blood Negative Negative [facility] Specific [place] - Urine 1.015 1.005 - 1.025 [facility] Urine Protein Negative Neg-Trace mg/dL [facility] Urine Ketones Negative Negative mg/dL [facility] Nitrite Urine Negative Negative [facility] Leukocyte Esterase Urine Large (3+)(A) Negative [facility] RBC Urine 0-2 0 - 2 /HPF [facility] Urine WBC 21-50(A) 0 - 5 /HPF [facility] Urine Squamous Epithelial Cell 3-5 0 - 2 /HPF [facility] Urine Bacteria None Seen None Seen [facility] Hyaline Casts, Urine 0-2 0 - 2 /LPF [facility] 02/15/2025 3:32 PM EDT 02/15/2025 3:37 PM EDT Narrative [facility] - 02/15/2025 4:04 PM EDT [id number], Clean Catch us Generic External Data Provider LAB URINE ORDERAB LES Final Result Performing Organization Address City/[facility]/ZIP Co de Phone Number [facility] [address] [place] [address] [phone] * HCG, Qualitative, Urine (02/15/2025 3:32 PM EDT) Urine NEGATIVE NEGATIVE [facility] Comment:This test was develo ped to detect early . Falsenegative results may occur after the 5th - 7th week ofpregnancy when using this test method. If clinicallyindicated, consider a serum hCG. 02/15/2025 3:32 PM EDT 02/15/2025 3:37 PM EDT Generic External Data Provider LAB URINE ORDERAB LES Final Result Performing Organization Address [facility] Co de Phone Number [facility] [address] [place] [phone] * Culture, Urine, Routine (02/15/2025 12:00 AM EDT) Urine Urine specimen obtained by clean catch procedure / Unknown 02/15/2025 02/15/2025 Comment:UACC Narrative [facility] - 02/17/2025 10:56 AM EDT Lactobacillus species Quant > 100,000 cfu/mL Susc N/A Susceptibility not routinely performed on this isolate. Specimen Source: Urine clean catch Generic External Data Provider LAB MICROBIOLOGY - GENERAL ORDERABLES Final Result Performing Organization Address [facility] Co de Phone Number [facility] [address] [place] [address] [phone] * Strep A Nucleic Acid (01/03/2025 6:17 PM EDT) IDNOW SERIAL# [id number] [facility] Strep A Nucleic Acid Negative Negative [facility] Comment:All test results mus t be correlated with clinical findings.This test has not been evaluated for monitoring treatment ofinfection.Additional follow-up testing using the culture method isrequired if the result is negative and clinical symptomspersist, or in the event of an acute rheumatic feveroutbreak. 01/03/2025 6:17 PM EDT 01/03/2025 6:27 PM EDT Generic External Data Provider LAB MICROBIOLOGY - GENERAL ORDERABLES Final Result Performing Organization Address [facility] Co de Phone Number [facility] [address] [place] [phone] * SARS-CoV-2 RNA, Influenza A/B, and RSV RNA, Ql NAAT (01/03/2025 6:17 PM EDT) Pathologist [facility] Influenza A PCR NEGATIVE Negative [facility] Influenza B PCR NEGATIVE Negative [facility] Resp Syncy Virus RNA Qual PCR NEGATIVE Negative [facility] SARS COV2 PCR NEGATIVE Negative [facility] Comment:All test results mus t be [...] use by authorized laboratories.Testing performed on the [employer] GeneXpert utilizingreal-time RT-PCR.All SARS CoV2 and positive influenza A/B results arereported to [facility]. 01/03/2025 6:17 PM EDT 01/03/2025 6:27 PM EDT us Generic External Data Provider LAB MICROBIOLOGY - GENERAL ORDERABLES Final Result Performing Organization Address [facility]/ZIP Co de Phone Number [facility] [address] [place] [phone] * Hepatitis C Antibody with Reflex to HCV, RNA, Quantitative, Real-Time PCR (09/22/2023 12:53 PM EDT) Hepatitis C Antibody Nonreactive Nonreactive [facility] Comment:Antibodies to HCV no t detected; does not exclude early acuteHCV infection. Blood Venous blood specimen / Unknown 09/22/2023 12:53 PM EDT 09/22/2023 4:15 PM EDT Leandra Carson LAB BLOOD ORDERABLES Final R esult Performing Organization Address City/[facility]/ZIP Co de Phone Number [facility] [address] [place] [address] [phone] * HIV-1/2 Antigen and Antibodies, Fourth Generation, with Reflexes (09/22/2023 12:53 PM EDT) Pathologist [facility] HIV AB/AG Nonreactive Nonreactive [facility] Comment:HIV-1 p24 Ag and/or HIV-1/HIV-2 Ab not detected.A test result that is nonreactive does not exclude thepossibility of exposure to or infection with HIV-1 and/orHIV-2. Nonreactive results in this assay for individualswith prior exposure to HIV-1 and/or HIV-2 may be due toantigen and antibody levels that are below the limit ofdetection of this assay.The [employer] DB HIV Ag/Ab Combo assay result andsupplemental assay results should be interpreted inconjunction with the patient's clinical presentation,history and other laboratory results. If the results areinconsistent with clinical evidence, additional testing issuggested to confirm the result. Blood Venous blood specimen / Unknown 09/22/2023 12:53 PM EDT 09/22/2023 4:15 PM EDT us Leandra Carson DO LAB BLOOD ORDERABLES Final R esult Performing Organization Address [facility]/ZIP Co de Phone Number [facility] [address] [place] [address] [phone] * Hm Pap Smear (06/10/2023) Pathologist [facility] Pap Negative for intraephithelial lesion or malignancy Negative for intraephithelial lesion or malignancy, Other HPV Undetected Undetected, Indeterminate, Quantitative, Not Detected us Historical Provider HEALTH MAINTENANCE Final Result from Last 3 Months or Most Recently Relevant to Health Maintenance Insurance [facility] C3 MAPFRE Care Teams Aviation Manager Relationship Specialty Start Date End Date Leandra Byrd DO [address] [place] [address] PCP - General Family Medicine 06/29/18 Ivonne Ledesma, BLADIMIR [address] [place] [address] Registered Nurse Family Medicine 02/16/25 Ada Rincon 02/16/25
--- OUTSIDE RECORDS SUMMARY | 2025-03-13 12:24 | XMS_ITS | Clinical Summary ---
Author Organization [facility] Address [address] [place] [address] Phone Care Team Providers Care Senior Accountant Analyst Name Role Phone Unavailable Primary Care Provider [...]
--- OUTSIDE RECORDS SUMMARY | 2025-03-13 12:24 | XMS_ITS | Encounter Summary ---
Author Organization [employer] Address [address] [facility] 7t [place] [address] Care Team Providers Care Chamber Worker Name Role Phone Leandra Byrd DO Primary Care Provider + [phone] Ivonne Ledesma RN Unavailable [phone] Ada Rincon Unavailable Reason for Visit * Reason Comments Med Refill Encounter Details Date Type Department Care Team ([facility] st Contact Info) Description 03/16/2024 Refill [facility] [address] [place] [address] Leandra Byrd DO [address] [place] [address] Insomnia, unspecified Social History Tobacco Use Types [...] documented as of this encounter Care Teams Chamber Worker Relationship Specialty Start Date End Date Leandra Byrd DO [address] [place] [address] PCP - General Family Medicine 06/29/18 Ivonne Ledesma, BLADIMIR [address] [place] [address] Registered Nurse Family Medicine 02/16/25 Ada Rincon 02/16/25 documented as of this encounter
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
--- OUTSIDE RECORDS SUMMARY | 2025-03-13 12:24 | XMS_ITS | Encounter Summary ---
Author Organization [facility] Address [address] [place] [address] Phone Care Team Providers Care Telegraphic Typewriter Installer Name Role Phone Izabel Gutierrez MD Primary Care Provider [phone] Encounter Details Date Type Department Care Team (Late st Contact Info) Description 02/12/2017 Conversion Encounter [facility] [address] [place] [address] Social History Tobacco Use Types Packs/Day Years [...] on filedocumented in this encounter Care Teams Telegraphic Typewriter Installer Relationship Specialty Start Date End Date Izabel Gutierrez MD [address] [place] [address] PCP - General 02/06/17 12/18/22 documented as of this encounter
--- OUTSIDE RECORDS SUMMARY | 2025-03-13 12:24 | XMS_ITS ---
Author Organization [employer] Address 75 [facility] 7t [place] [address] Care Team Providers Care Litigation Associate Name Role Phone Leandra Byrd DO Primary Care Provider [phone] Ivonne Ledesma RN Unavailable [phone] Ada Rincon Unavailable [facility] Complex Status:Outreach In Progress (Enrolling) Start date:02/16/2025 Enrollment reason:ADT Feed Overview [facility] 02/15/25 UTI. Please outreach for enrollment. Case Team Name Relationship Phone Ada Rincon(Responsible Staff) [phone] Continued Care and Services Coordination
--- OUTSIDE RECORDS SUMMARY | 2025-03-13 12:24 | XMS_ITS | Clinical Summary ---
Author Organization 175 [facility] Address [address] [place] [address] Phone Care Team Providers Care Fire Hazard Inspector Name Role Phone Leandra Byrd DO Primary Care Provider [phone] Allergies Active Allergy Reactions Criticality Noted Date [...] AM EDT Office Visit Orthopedic Surgery - [place] 175 [facility] [address] [place] [address] Jessica Bhardwaj MD Cubital tunnel syndrome, left (Primary Dx); Surgery follow-up 12/22/2024 9:00 AM EDT Treatment [facility] [address] [phone] Scout Cazares TREVIÑO/L Cubital tunnel syndrome, left (Primary Dx) 12/20/2024 1:15 PM EDT Treatment [facility] Occupational Therapy [address] [phone] Scout Cazares TREVIÑO/L Cubital tunnel syndrome, left (Primary Dx) 12/16/2024 12:30 PM EDT Treatment [facility] Occupational Therapy [address] [place] [phone] Scout Cazares TREVIÑO/L Cubital tunnel syndrome, left (Primary Dx) 12/14/2024 9:30 AM EDT Treatment [facility] Occupational Therapy [address] [address] Scout Cazares COTA/L Cubital tunnel syndrome, left (Primary Dx) from [...] donning a jacket Patient will demo L quality assurance representative strength >= 60# to be able to [...] currently active code status orders. Care Teams Fire Hazard Inspector Relationship Specialty Start Date End Date Leandra Byrd DO [address] [place], [place] PCP - General 09/12/11
[2025-03-17 09:46] LABS: ~Hepatitis A Antibody IgG 0.33 S/CO (0.00-0.99)
== END 2025-03-13 10:00 | disposition home or self-care (01) ==
LOC: HO.HHCL 09:59
PROVIDERS: PCP Family Medicine; Visit Provider Family Medicine
DX: Z00.00 Encounter for general adult medical examination without abnormal findings (principal); Z11.59 Encounter for screening for other viral diseases; Z11.3 Encounter for screening for infections with a predominantly sexual mode of transmission; J45.30 Mild persistent asthma, uncomplicated; J30.9 Allergic rhinitis, unspecified; E03.9 Hypothyroidism, unspecified; D64.9 Anemia, unspecified; K21.9 Gastro-esophageal reflux disease without esophagitis; G43.909 Migraine, unspecified, not intractable, without status migrainosus; M54.2 Cervicalgia; G89.29 Other chronic pain; M54.40 Lumbago with sciatica, unspecified side; G56.22 Lesion of ulnar nerve, left upper limb; H91.92 Unspecified hearing loss, left ear; M54.9 Dorsalgia, unspecified; N62 Hypertrophy of breast; Z11.4 Encounter for screening for human immunodeficiency virus [HIV]
CPT/HCPCS: 36415; 80048; 80061; 80076; 82306; 83036; 84439; 84443; 85027; 86592; 86708; 86803; 87389

== ENCOUNTER → 2025-04-03 13:00 | Outpatient (BNV) | payer MEDICAID, SELFPAY | PROVIDERS: PCP Family Medicine; Visit Provider Internal Medicine | DX: N64.4 Mastodynia (principal) | CPT/HCPCS: 76642; 77062; 77066 ==

== ENCOUNTER 2025-04-03 13:30 | Outpatient (REF) | payer MEDICAID, SELFPAY ==
--- NOTE | ~2025-04-03 | US_ITS ---
EXAMINATION: MM DIAGNOSTIC DIGITAL BREAST TOMOSYNTHESIS, BILATERAL Left Limited ultrasound. CLINICAL INFORMATION: Left breast pain since 2010 after her bilateral reduction mammoplasty surgery. Pain is worse at time of her cycle. COMPARISON: Mammography: Comparison is made with relevant prior exams. TECHNIQUE: Digital breast mammography with tomosynthesis is performed in both the craniocaudal and mediolateral oblique views along with computer-aided detection (CAD). FINDINGS: There are scattered areas of fibroglandular density. Bilateral reduction mammoplasty with large bilateral dystrophic calcifications. There are no significant masses, abnormal calcifications, or other abnormalities. Targeted color Doppler ultrasound scanning in the upper outer quadrant area of patient's pain from 1-5 o'clock demonstrates normal fibronodular breast tissue. Shadowing from benign dystrophic calcifications is noted on ultrasound. Results are provided to the patient at time of visit by the technologist. US/US Breast LT Limited Mamm Only IMPRESSION: Right: Benign. Left: No mammographic or sonographic abnormal finding to account for the patient's left breast pain. Recommend clinical evaluation and follow-up. ASSESSMENT: BI-RADS Category 2: Benign RECOMMENDATION: 1 year F/U This patient's information was entered into a reminder system with a target due date for their next mammogram. Electronically signed by: Becky Johnson DO 04/03/2025 03:38 PM EDT
--- OUTSIDE RECORDS SUMMARY | 2025-04-03 15:52 | XMS_ITS | Encounter Summary ---
Author Organization [employer] Address 75 [facility] 7[address] [place] [address] Care Team Providers Care Microbiology Analyst Name Role Phone Leandra Byrd DO Primary Care Provider [phone] Ivonne Ledesma RN Unavailable Ada Rincon Unavailable Reason for Visit * Reason Onset Date Comments Med Refill 08/01/2022 Encounter Details Date Type Department Care Team (Late st Contact Info) Description 08/01/2022 Telephone [facility] MEDICINE [address] [place] [address] Leandra Byrd DO [address] [place] [address] Med Refill Social History Tobacco Use Types [...] 11:08 AM EST Medication was sent to [facility] on 07/23/22. * Telephone Encounter - Herb Merino - 08/01/2022 9:15 AM EST Tc from pt requesting med refill Iron 325 mg ( 65 mg iron ) documented in this encounter Plan of Treatment Not on file documented as of this encounter Visit Diagnoses Not on filedocumented in this encounter Care Teams Microbiology Analyst Relationship Specialty Start Date End Date Leandra Byrd DO [address] [place] [address] PCP - General Family Medicine 06/29/18 Ivonne Ledesma, BLADIMIR [address] [place] [address] Registered Nurse Family Medicine 02/16/25 Ada Rincon 02/16/25 documented as of this encounter
--- OUTSIDE RECORDS SUMMARY | 2025-04-03 15:52 | XMS_ITS | Encounter Summary ---
Author Organization [employer] Address [address] [place] [address] 7 [place] [address] Care Team Providers Care Jump Roll Operator Name Role Phone Leandra Byrd DO Primary Care Provider [phone] Ivonne Ledesma RN Unavailable [phone] Ada Rincon Unavailable Reason for Visit * Reason Comments Med Refill Encounter Details Date Type Department Care Team (Late st Contact Info) Description 03/31/2023 Refill [facility] MEDICINE [address] [place] [address] Leandra Byrd DO [address] [place] [address] Vitamin D deficiency Social History Tobacco Use [...] deficiency documented in this encounter Care Teams Jump Roll Operator Relationship Specialty Start Date End Date Leandra Byrd DO [address] [place] [address] PCP - General Family Medicine 06/29/18 Ivonne Ledesma RN [address] [place] [address] [place] [address] Registered Nurse Family Medicine 02/16/25 Ada Rincon 02/16/25 documented as of this encounter
--- OUTSIDE RECORDS SUMMARY | 2025-04-03 15:52 | XMS_ITS | Encounter Summary ---
Author Organization [employer] Address [address] [place] [address] [address] [address] Care Team Providers Care Technical Adjuster Name Role Phone Leandra Byrd DO Primary Care Provider [phone] Ivonne Ledesma RN Unavailable [phone] Ada Rincon Unavailable Encounter Details Date Type Department Care Team (Late st Contact Info) Description 10/17/2022 Orders Only [facility] MEDICINE [address] [place] [address] Corrine Ramsay LPN Social History Tobacco Use [...] on filedocumented in this encounter Care Teams Technical Adjuster Relationship Specialty Start Date End Date Leandra Byrd DO [address] [place] [address] PCP - General Family Medicine 06/29/18 Ivonne Ledesma, BLADIMIR [address] [place] [address] Registered Nurse Family Medicine 02/16/25 Ada Rincon 02/16/25 documented as of this encounter
--- OUTSIDE RECORDS SUMMARY | 2025-04-03 15:52 | XMS_ITS | Encounter Summary ---
Author Organization [employer] Address 75 [facility] 7t [place] [address] Care Team Providers Care Glacing Machine Tender Name Role Phone Leandra Byrd DO Primary Care Provider + [phone] Ivonne Ledesma RN Unavailable [phone] Ada Rincon Unavailable Reason for Visit * Reason Comments Med Refill Encounter Details Date Type Department Care Team (Late st Contact Info) Description 07/17/2023 Refill [facility] MEDICINE [address] [place] [address] Leandra Byrd DO [address] [place] [address] Insomnia, unspecified Social History Tobacco Use Types [...] documented as of this encounter Care Teams Glacing Machine Tender Relationship Specialty Start Date End Date Leandra Byrd DO [address] [place] [address] PCP - General Family Medicine 06/29/18 Ivonne Ledesma RN [address] [place] [address] Registered Nurse Family Medicine 02/16/25 Ada Rincon 02/16/25 documented as of this encounter
--- OUTSIDE RECORDS SUMMARY | 2025-04-03 15:52 | XMS_ITS | Encounter Summary ---
Author Organization [employer] Address [address] [place] [address] [address] [place] [address] Care Team Providers Care Air Tucker Name Role Phone Leandra Byrd DO Primary Care Provider [phone] Ivonne Ledesma RN Unavailable Ada Rincon Unavailable Encounter Details Date Type Department Care Team (Late st Contact Info) Description 07/21/2022 Orders Only [facility] [address] [place] [address] Leandra Malone LPN Social History Tobacco Use [...] on filedocumented in this encounter Care Teams Air Tucker Relationship Specialty Start Date End Date Leandra Byrd DO [address] [place] [address] PCP - General Family Medicine 06/29/18 Ivonne Ledesma, BLADIMIR [address] [place] [address] Registered Nurse Family Medicine 02/16/25 Ada Rincon 02/16/25 documented as of this encounter
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
--- OUTSIDE RECORDS SUMMARY | 2025-04-03 15:53 | XMS_ITS | Clinical Summary ---
Author Organization [facility] Address [address] [place] [address] Phone Care Team Providers Care Agricultural Education Teacher Name Role Phone Unavailable Primary Care Provider [...] Vaccines (#1) 2025 COVID-19 Vaccine ( - 2024- season) 2025 HIB Vaccines Completed 07/03/1988 IPV [...]
--- OUTSIDE RECORDS SUMMARY | 2025-04-03 15:53 | XMS_ITS | Encounter Summary ---
Author Organization [employer] Address 75 [facility] 7t [place] [address] Care Team Providers Care Cutting Torch Operator Name Role Phone Leandra Byrd DO Primary Care Provider + [phone] Ivonne Ledesma RN Unavailable [phone] Ada Rincon Unavailable Reason for Visit * Reason Comments Med Refill Encounter Details Date Type Department Care Team ([facility] st Contact Info) Description 11/13/2023 Refill [facility] MEDICINE [address] [place] [address] Leandra Byrd DO [address] [place] [address] Insomnia, unspecified Social History Tobacco Use Types [...] documented as of this encounter Care Teams Cutting Torch Operator Relationship Specialty Start Date End Date Leandra Byrd DO [address] [place] [address] PCP - General Family Medicine 06/29/18 Ivonne Ledesma, BLADIMIR [address] [place] [address] Registered Nurse Family Medicine 02/16/25 Ada Rincon 02/16/25 documented as of this encounter
--- OUTSIDE RECORDS SUMMARY | 2025-04-03 15:53 | XMS_ITS | Encounter Summary ---
Author Organization [employer] Address [address] [facility] [address] [place] [address] Care Team Providers Care Hand Cloth Folder Name Role Phone Leandra Byrd DO Primary Care Provider [phone] Ivonne Ledesma RN Unavailable [phone] Ada Rincon Unavailable Reason for Visit * Reason Onset Date Comments Med Refill 01/26/2024 Encounter Details Date Type Department Care Team (Late st Contact Info) Description 01/26/2024 Refill [facility] MEDICINE [address] [place] [address] Leandra Byrd DO [address] [place] [address] Dizziness Social History Tobacco Use Types Packs/Day [...] x2. Left voice message To call [facility] [phone]. Sent: 01/26/2024 3:45 PM EDT To: [facility] Subject: Appointment Request Appointment Request From: Sarah Schneider With Provider: Leandra Byrd DO [[facility] MEDICINE] Preferred Date Range: Any Preferred Times: [...] Message First) Alexandra Silva routed conversation to [facility] Nurse5 minutes ago (4:41 PM) documented in this encounter Plan of Treatment Not on file documented as of this encounter Visit Diagnoses Diagnosis Dizziness Dizziness and giddiness documented in this encounter Additional Health Concerns Assessment Noted Time PHQ-9 Depression Total Score: 9 05/07/20 23 11:38 AM EST documented as of this encounter Care Teams Hand Cloth Folder Relationship Specialty Start Date End Date Leandra Byrd DO [address] [place] [address] PCP - General Family Medicine 06/29/18 Ivonne Ledesma, RN [address] [place] [id number] Registered Nurse Family Medicine 02/16/25 Ada Rincon 02/16/25 documented as of this encounter
--- OUTSIDE RECORDS SUMMARY | 2025-04-03 15:53 | XMS_ITS | Encounter Summary ---
Author Organization [facility] Address [address] [place] [address] Phone Care Team Providers Care Agricultural Research Director Name Role Phone Izabel Gutierrez MD Primary Care Provider [phone] Encounter Details Date Type Department Care Team (Late st Contact Info) Description 02/12/2017 Conversion Encounter [facility] [place] [address] [place] [address] Social History Tobacco Use Types Packs/Day Years [...] on filedocumented in this encounter Care Teams Agricultural Research Director Relationship Specialty Start Date End Date Izabel Gutierrez MD [address] [place] [address] PCP - General 02/06/17 12/18/22 documented as of this encounter
--- OUTSIDE RECORDS SUMMARY | 2025-04-03 15:53 | XMS_ITS | Encounter Summary ---
Author Organization [employer] Address [address] [place] [address] [address], [place] [address] Care Team Providers Care Lotteries Agent Name Role Phone Leandra Byrd DO Primary Care Provider [phone] Ivonne Ledesma RN Unavailable [phone] Ada Rincon Unavailable Encounter Details Date Type Department Care Team (Late st Contact Info) Description 07/04/2022 Orders Only [facility] MEDICINE [address] [place] [address] Whit Jimenez RN [address] [place] [address] Social History Tobacco Use Types Packs/Day Years [...] on filedocumented in this encounter Care Teams Lotteries Agent Relationship Specialty Start Date End Date Leandra Byrd DO [address] [place] [address] PCP - General Family Medicine 06/29/18 Ivonne Ledesma, RN [address] [place] [id number] Registered Nurse Family Medicine 02/16/25 Ada Rincon 02/16/25 documented as of this encounter
--- OUTSIDE RECORDS SUMMARY | 2025-04-03 15:53 | XMS_ITS ---
Author Organization [employer] Address [address] [facility] [address] [place] [address] Care Team Providers Care Higher Level Teaching Assistant Name Role Phone Leandra Byrd DO Primary Care Provider Ivonne Ledesma RN Unavailable [phone] Ada Rincon Unavailable CM Complex Status:Outreach In Progress (Enrolling) Start date:02/16/2025 Enrollment reason:ADT Feed Overview [facility] ED 02/15/25 UTI Case Team Name Relationship Phone Ivonne Ledesma RN(Responsible Staff) Registered Nurse [phone] Continued Care and Services Coordination
--- OUTSIDE RECORDS SUMMARY | 2025-04-03 15:53 | XMS_ITS | Encounter Summary ---
Author Organization [employer] Address [address] [place] [address] [address] [place] [address] Care Team Providers Care Nurse Aide Evaluator Name Role Phone Leandra Byrd DO Primary Care Provider [phone] Ivonne Ledesma RN Unavailable [phone] Ada Rincon Unavailable Encounter Details Date Type Department Care Team (Late st Contact Info) Description 06/25/2022 Orders Only [facility] [address] [place] [address] Leandra Malone LPN Social History Tobacco Use [...] filedocumented in this encounter Care Teams Nurse Aide Evaluator Relationship Specialty Start Date End Date Leandra Byrd DO [address] [place] [address] PCP - General Family Medicine 06/29/18 Ivonne Ledesma, BLADIMIR [address] [place] [address] Registered Nurse Family Medicine 02/16/25 Ada Rincon 02/16/25 documented as of this encounter
--- OUTSIDE RECORDS SUMMARY | 2025-04-03 15:53 | XMS_ITS | Clinical Summary ---
Author Organization [employer] Address [address] [facility] [address] [place] [address] Care Team Providers Care Advertising Supervisor Name Role Phone CarsonLeandra Primary Care Provider + [phone] Ivonne Ledesma RN Unavailable [phone] Ada Rincon Unavailable Allergies Active Allergy [...] AT BEDTIME NEEDED FOR ITCHING 5 mL Active Ascorbic Acid (vitamin C) 250 MG tabletIndications: Iron deficiency anemia, unspecified iron deficiency anemia type TAKE 1 TABLET BY MOUTH TWICE DAILY WITH Ferrous Sulfate 180 tablet Active D3 Super Strength 50 MCG (2000 [...] by mouth Once per day. 30 tablet 025 2025 Active hydrOXYzine HCl (Atarax) 25 MG tablet Take 1 tablet (25 mg) by mouth every 6 (six) hours if needed for anxiety. 40 tablet 2024 Active melatonin 5 MG tabletIndications: Insomnia, [...] mg) by mouth at bedtime. 90 tablet 025 2025 Active amitriptyline (Elavil) 10 MG tablet Take 1-2 tablets (10-20 mg) by mouth at bedtime. 60 tablet 5 Active omeprazole (PriLOSEC) [address] capsuleIndications [...] or split. 60 tablet 3 025 Active zolpidem (Ambien) 10 MG tabletIndications: Insomnia, unspecified TAKE 1 TABLET BY MOUTH EVERY DAY AT BEDTIME NEEDED FOR SLEEP 30 tablet 3 025 Active montelukast (Singulair) 10 [...] (will not trigger notification to Pharmacy)) fluticasone furoate (Arnuity Ellipta) 100 MCG/ACT inhaler [...] eorder (will not trigger notification to Pharmacy)) tiZANidine (Zanaflex) 2 MG tablet TAKE 1 [...] eorder (will not trigger notification to Pharmacy)) zolpidem (Ambien) 10 MG tabletIndications: Insomnia, unspecified TAKE 1 TABLET BY MOUTH EVERY DAY AT BEDTIME NEEDED FOR SLEEP 30 tablet 3 025 2024 Discontinued Active Problems Problem Noted [...] Encounters Date Type Department Care Team Description 03/27/2025 Patient Outreach [facility] [address] [place] [phone] Leandra Byrd DO 03/16/[address] [address] Leandra Byrd DO Results 03/16/2025 Patient Outreach [address] [address] Leandra Byrd DO Care Coordination (CM/CHW outreach) 03/15/[address] [address] Leandra Byrd DO Insomnia, unspecified 03/10/[address] [address] Leandra Byrd DO Medication Question 03/10/2025 Patient Outreach [address] [address] Leandra Byrd DO 03/08/2025 9:30 AM EDT Office Visit [address] [address] Leandra Byrd DO Routine history and physical [...] Anxiety 03/08/2025 Travel 03/07/2025 Travel 03/03/[address] [address] Leandra Byrd DO Chart Prep 03/01/2025 Patient Outreach [address] [address] Leandra Byrd DO Pre-visit Planning (Pre-visit planning - LVM ) 02/17/2025 Patient Outreach [address] [address] Leandra Byrd DO Care Coordination (CM/CHW outreach) 02/16/2025 Patient Outreach [address] [address] Leandra Byrd DO Care Coordination (CHW chart review) 02/16/2025 Patient Outreach [address] [address] Leandra Byrd DO Care Management (C3CM- chart review) 02/16/2025 Patient Outreach [address] [address] Leandra Byrd DO 02/15/2025 Orders Only GENERIC EXTERNAL DATA DEPARTMENT Provider, Generic External Data 02/13/[address] [address] Leandra Byrd DO Vitamin D deficiency 01/20/[address] [address] Leandra Byrd DO Recall Appointment 01/20/2025 Travel 01/16/[address] [address] Leandra Byrd DO Appointment Request 01/03/2025 Orders [...] 03/08/2026 03/08/2025 Diabetes: Hemoglobin A1C 03/13/2026 03/13/2025, 08/28 Cervical Cancer Screening 06/10/2028 HPV/Cotest 06/10/2028 06/10/2023 [...] (6 to 49) Years Completed 09/11/2023, 07/05/2010 HPV Vaccines Completed 02/23/2024, 12/27, 11/08/2012 HIV Screening Completed 03/13/2025, 09/22/2023 Hepatitis C Screening Completed 03/13/2025, 024 Hepatitis A Vaccines Aged Out No long [...] Procedure Name Priority Date/Time Associated Diagnosis Comments BI US BREAST LIMITED LEFT Routine 04/03/2025 2:15 PM EDT BI MAMMOGRAM DIAGNOSTIC TOMOSYNTHESIS BILATERAL Routine 04/03/2025 1:39 PM EDT Breast pain, left HEPATITIS A ANTIBODY, TOTAL Routine 03/13/2025 10:03 AM EDT Mild persistent asthma without complication Chronic allergic rhinitis Hypothyroidism, unspecified type Anemia, unspecified type Chronic gastroesophageal reflux disease Chronic migraine Chronic neck pain Chronic bilateral low back pain with sciatica, sciatica laterality unspecified Cubital tunnel syndrome on left Hearing loss of left ear, unspecified hearing loss type Upper back pain Macromastia Healthcare maintenance RPR (MONITOR) W/REFL TITER Routine 03/13/2025 10:03 AM EDT Mild persistent asthma without complication Chronic allergic rhinitis Hypothyroidism, unspecified type Anemia, unspecified type Chronic gastroesophageal reflux disease Chronic migraine Chronic neck pain Chronic bilateral low back pain with sciatica, sciatica laterality unspecified Cubital tunnel syndrome on left Hearing loss of left ear, unspecified hearing loss type Upper back pain Macromastia Healthcare maintenance HEPATITIS C AB W/REFL TO HCV RNA, QN, PCR Routine 03/13/2025 10:03 AM EDT Mild persistent asthma without complication Chronic allergic rhinitis Hypothyroidism, unspecified type Anemia, unspecified type Chronic gastroesophageal reflux disease Chronic migraine Chronic neck pain Chronic bilateral low back pain with sciatica, sciatica laterality unspecified Cubital tunnel syndrome on left Hearing loss of left ear, unspecified hearing loss type Upper back pain Macromastia Healthcare maintenance HIV 1/2 ANTIGEN/ANTIBODY, FOURTH GENERATION W/RFL Routine 03/13/2025 10:03 AM EDT Mild persistent asthma without complication Chronic allergic rhinitis Hypothyroidism, unspecified type Anemia, unspecified type Chronic gastroesophageal reflux disease Chronic migraine Chronic neck pain Chronic bilateral low back pain with sciatica, sciatica laterality unspecified Cubital tunnel syndrome on left Hearing loss of left ear, unspecified hearing loss type Upper back pain Macromastia Healthcare maintenance BASIC METABOLIC PANEL Routine 03/13/2025 10:03 AM [...] NUCLEIC ACID Routine 01/03/2025 6:17 PM EDT HM PAP/HPV Routine 06/10/2023 from Last 3 Months or Most Recently Relevant to Health Maintenance Results * BI US Breast Limited Left (04/03/2025 2:15 PM EDT) Anatomical Region Laterality Modality Breast Left Ultrasound 04/03/2025 2:15 PM EDT Narrative 04/03/2025 3:40 PM EDT [facility] [address] [place] [address] Ultrasound Report Signed Patient: Sarah Schneider MR#: [id number] 926 : 1985 Acct:[id number] Age/Sex: 39 / F ADM Date: 04/03/25 Loc: HO.MAMMO Attending Dr: Leandra Byrd DO Ordering Physician: Leandra Byrd DO Date of Service: 04/03/25 Procedure(s): US Breast LT Limited Mamm Only Accession Number(s): [id number] cc: Leandra Byrd DO Reason for Exam: L breast pain from 9:00 to 3:00 EXAMINATION: MM DIAGNOSTIC DIGITAL BREAST TOMOSYNTHESIS, BILATERAL Left Limited ultrasound. CLINICAL INFORMATION: Left breast pain since 2010 after her bilateral reduction mammoplasty surgery. Pain is worse at time of her cycle. COMPARISON: Mammography: Comparison is made with relevant prior exams. TECHNIQUE: Digital breast mammography with tomosynthesis is performed in both the craniocaudal and mediolateral oblique views along with computer-aided detection (CAD). FINDINGS: There are scattered areas of fibroglandular density. Bilateral reduction mammoplasty with large bilateral dystrophic calcifications. There are no significant masses, abnormal calcifications, or other abnormalities. Targeted color Doppler ultrasound scanning in the upper outer quadrant area of patient's pain from 1-5 o'clock demonstrates normal fibronodular breast tissue. Shadowing from benign dystrophic calcifications is noted on ultrasound. Results are provided to the patient at time of visit by the technologist. US/US Breast LT Limited Mamm Only IMPRESSION: Right: Benign. Left: No mammographic or sonographic abnormal finding to account for the patient's left breast pain. Recommend clinical evaluation and follow-up. ASSESSMENT: BI-RADS Category 2: Benign RECOMMENDATION: 1 year F/U This patient's information was entered into a reminder system with a target due date for their next mammogram. Electronically signed by: Becky Johnson DO 04/03/2025 03:38 PM EDT Dictated By: Becky Johnson DO Signed By: <Electronically signed by Becky Johnson DO in OV> 04/03/25 1538 DD/ 1415 TD/TT: 04/03/25 1435 Block Cutter: Procedure Note Donotuseinterpreter, Image - 04/03/2025 [facility] [address] [place], [place] [address] Ultrasound Report Signed Patient: Sarah Schneider LMR#: [id number] 926 : 1985Acct:[id number] Age/Sex: 39 / FADM Date: 04/03/25 Loc: HO.MAMMO Attending Dr: Leandra Byrd DO Ordering Physician: Leandra Byrd DO Date of Service: 04/03/25 Procedure(s): US Breast LT Limited Mamm Only Accession Number(s): [id number] cc: Leandra Byrd DO Reason for Exam: L breast pain from 9:00 to 3:00 EXAMINATION: MM DIAGNOSTIC DIGITAL BREAST TOMOSYNTHESIS, BILATERAL Left Limited ultrasound. CLINICAL INFORMATION: Left breast pain since 2010 after her bilateral reduction mammoplasty surgery. Pain is worse at time of her cycle. COMPARISON: Mammography: Comparison is made with relevant prior exams. TECHNIQUE: Digital breast mammography with tomosynthesis is performed in both the craniocaudal and mediolateral oblique views along with computer-aided detection (CAD). FINDINGS: There are scattered areas of fibroglandular density. Bilateral reduction mammoplasty with large bilateral dystrophic calcifications. There are no significant masses, abnormal calcifications, or other abnormalities. Targeted color Doppler ultrasound scanning in the upper outer quadrant area of patient's pain from 1-5 o'clock demonstrates normal fibronodular breast tissue. Shadowing from benign dystrophic calcifications is noted on ultrasound. Results are provided to the patient at time of visit by the technologist. US/US Breast LT Limited Mamm Only IMPRESSION: Right: Benign. Left: No mammographic or sonographic abnormal finding to account for the patient's left breast pain. Recommend clinical evaluation and follow-up. ASSESSMENT: BI-RADS Category 2: Benign RECOMMENDATION: 1 year F/U This patient's information was entered into a reminder system with a target due date for their next mammogram. Electronically signed by: Becky Johnson DO 04/03/2025 03:38 PM EDT Dictated By: Becky Johnson DO Signed By: <Electronically signed by Becky Johnson DO in OV> 04/03/25 1538 DD/ 1415 TD/TT: 04/03/25 1435 Block Cutter: us Leandra Byrd DO IMG US PROCEDURES Final Resu lt * BI Mammogram Diagnostic Tomosynthesis Bilateral (04/03/2025 1:39 PM EDT) Anatomical Region Laterality Modality Breast Bilateral Mammography 04/03/2025 1:39 PM EDT Narrative 04/03/2025 3:40 PM EDT [facility] [address] [place] [address] Mammography Report Signed Patient: Sarah Schneider MR#: [id number] 926 : 1985 Acct:[id number] Age/Sex: 39 / F ADM Date: 04/03/25 Loc: HO.MAMMO Attending Dr: Leandra Byrd DO Ordering Physician: Leandra Byrd DO Results: 2B enign Date of Service: 04/03/25 Follow Up: 1 Year From [facility] Mammogram Procedure(s): MM tomosynthesis diagnostic BI Accession Number(s): [id number] cc: Leandra Byrd DO Reason For Exam: L breast pain from 9:00 to 3:00 EXAMINATION: MM DIAGNOSTIC DIGITAL BREAST TOMOSYNTHESIS, BILATERAL Left Limited ultrasound. CLINICAL INFORMATION: Left breast pain since 2010 after her bilateral reduction mammoplasty surgery. Pain is worse at time of her cycle. COMPARISON: Mammography: Comparison is made with relevant prior exams. TECHNIQUE: Digital breast mammography with tomosynthesis is performed in both the craniocaudal and mediolateral oblique views along with computer-aided detection (CAD). FINDINGS: There are scattered areas of fibroglandular density. Bilateral reduction mammoplasty with large bilateral dystrophic calcifications. There are no significant masses, abnormal calcifications, or other abnormalities. Targeted color Doppler ultrasound scanning in the upper outer quadrant area of patient's pain from 1-5 o'clock demonstrates normal fibronodular breast tissue. Shadowing from benign dystrophic calcifications is noted on ultrasound. Results are provided to the patient at time of visit by the technologist. MM/MM tomosynthesis diagnostic BI IMPRESSION: Right: Benign. Left: No mammographic or sonographic abnormal finding to account for the patient's left breast pain. Recommend clinical evaluation and follow-up. ASSESSMENT: BI-RADS Category 2: Benign RECOMMENDATION: 1 year F/U This patient's information was entered into a reminder system with a target due date for their next mammogram. Electronically signed by: Becky Johnson DO 04/03/2025 03:38 PM EDT Dictated By: Becky Johnson DO Signed By: <Electronically signed by Becky Johnson DO in OV> 04/03/25 1538 DD/ 1339 TD/TT: 04/03/25 1350 Block Cutter: Procedure Note Donkendal, Jose Alejandro - 04/03/2025 [facility] [address] [place] [address] Mammography Report Signed Patient: Sarah Schneider LMR#: [id number] 926 : 1985Acct:[id number] Age/Sex: 39 / FADM Date: 04/03/25 Loc: HO.MAMMO Attending Dr: Leandra Byrd DO Ordering Physician: Leandra Byrdults: 2B enign Date of Service: 04/03/25Follow Up: 1 Year From [facility] Mammogram Procedure(s): MM tomosynthesis diagnostic BI Accession Number(s): [id number] cc: Leandra Byrd DO Reason For Exam: L breast pain from 9:00 to 3:00 EXAMINATION: MM DIAGNOSTIC DIGITAL BREAST TOMOSYNTHESIS, BILATERAL Left Limited ultrasound. CLINICAL INFORMATION: Left breast pain since 2010 after her bilateral reduction mammoplasty surgery. Pain is worse at time of her cycle. COMPARISON: Mammography: Comparison is made with relevant prior exams. TECHNIQUE: Digital breast mammography with tomosynthesis is performed in both the craniocaudal and mediolateral oblique views along with computer-aided detection (CAD). FINDINGS: There are scattered areas of fibroglandular density. Bilateral reduction mammoplasty with large bilateral dystrophic calcifications. There are no significant masses, abnormal calcifications, or other abnormalities. Targeted color Doppler ultrasound scanning in the upper outer quadrant area of patient's pain from 1-5 o'clock demonstrates normal fibronodular breast tissue. Shadowing from benign dystrophic calcifications is noted on ultrasound. Results are provided to the patient at time of visit by the technologist. MM/MM tomosynthesis diagnostic BI IMPRESSION: Right: Benign. Left: No mammographic or sonographic abnormal finding to account for the patient's left breast pain. Recommend clinical evaluation and follow-up. ASSESSMENT: BI-RADS Category 2: Benign RECOMMENDATION: 1 year F/U This patient's information was entered into a reminder system with a target due date for their next mammogram. Electronically signed by: Becky Johnson DO 04/03/2025 03:38 PM EDT Dictated By: Becky Johnson DO Signed By: <Electronically signed by Becky Johnson DO in OV> 04/03/25 1538 DD/ 1339 TD/TT: 04/03/25 1350 Block Cutter: us Leandra Byrd DO IMG BI PROCEDURES Final Resu lt * Vitamin D, 25-Hydroxy, Total, Immunoassay (03/13/2025 10:03 AM EDT) Vitamin D 25-OH Total 40.0 >30 ng/mL [facility] Comment: Health Based Reference Values*< 20 ng/mL [id number] ng/mL Insufficient> 30 ng/mL Sufficient*[place]o [place]. N [...] ORDERABLES Final R esult Performing Organization Address City/[facility]/ZIP Co de Phone Number [facility] [address] [place] [phone] * Hepatitis C Antibody with Reflex to HCV, RNA, Quantitative, Real-Time PCR (03/13/2025 10:03 AM EDT) Hepatitis C Antibody Nonreactive Nonreactive [facility] Comment:Antibodies to HCV no t detected; does not exclude early acuteHCV infection. Blood Venous blood specimen / Unknown 03/13/2025 10:03 AM EDT 03/13/2025 11:12 AM EDT Leandra Byrd DO LAB BLOOD ORDERABLES Final R esult Performing Organization Address [facility]/ZIP Co de Phone Number [facility] [address] [place] [phone] * Hepatitis A Antibody, Total (03/13/2025 10:03 AM EDT) Hepatitis A Antibody IgG Nonreactive Nonreactive [facility] Blood Venous blood specimen / Unknown 03/13/2025 10:03 AM EDT 03/13/2025 11:12 AM EDT Leandra Byrd DO LAB BLOOD ORDERABLES Final R esult Performing Organization Address [facility]/ZIP Co de Phone Number [facility] [address] [place] [phone] * RPR (Monitor) with Reflex to??Titer (03/13/2025 10:03 AM EDT) RPR (Monitor) w/Refl Titer NON-REACTI VE NON-REACT [place] [facility] Comment:THIS TEST WAS PERFOR MED AT:[facility] [place] [phone] FOUNTAIN MD Rapid Plasma Reagin Ab Titer TNP [facility] Blood Venous blood specimen / Unknown 03/13/2025 10:03 AM EDT 03/13/2025 11:04 AM EDT us Leandra Byrd DO LAB BLOOD ORDERABLES Final R esult [facility] [address] [place] [phone] * HIV-1/2 Antigen and Antibodies, Fourth Generation, with Reflexes (03/13/2025 10:03 AM EDT) HIV AB/AG Nonreactive Nonreactive [facility] Comment:HIV-1 p24 Ag and/or HIV-1/HIV-2 Ab not detected.A test result that is nonreactive does not exclude thepossibility of exposure to or infection with HIV-1 and/orHIV-2. Nonreactive results in this assay for individualswith prior exposure to HIV-1 and/or HIV-2 may be due toantigen and antibody levels that are below the limit ofdetection of this assay.The [employer] HIV Ag/Ab Combo assay result andsupplemental assay results should be interpreted inconjunction with the patient's clinical presentation,history and other laboratory results. If the results areinconsistent with clinical evidence, additional testing issuggested to confirm the result. Blood Venous blood specimen / Unknown 03/13/2025 10:03 AM EDT 03/13/2025 11:12 AM EDT us Leandra Byrd DO LAB BLOOD ORDERABLES Final R esult [facility] [address] [place] [phone] * (ABNORMAL) CBC (03/13/2025 10:03 AM EDT) White Blood Count 4.4(L) 4.8 - 10.8 X10*3/uL [facility] Red Blood Count 4.91 4.20 - 5.50 X10*6/uL [facility] Hemoglobin 14.0 12.0 - 16.0 g/dl [facility] Hematocrit 42.3 37.0 - 47.0 % [facility] Mean Corpuscular Volume 86.2 80.0 - 98.0 fL [facility] Mean Corpuscular Hemoglobin 28.5 27.0 - 33.0 pg [facility] Mean Corpuscular HGB Conc 33.1 31.0 - 35.0 g/dl [facility] Red Cell Distribution Width 12.4 11.0 - 16.0 % [facility] Platelet Count 316 160 - 400 X10*3/uL [facility] Mean Platelet Volume 10.0 9.4 - 12.3 fL [facility] NRBC Pct Auto 0.0 0.0 - 0.2 /100WBC [facility] NRBC Abs Auto 0.000 0.0 - 0.012 X10*3/uL [facility] Blood Venous blood specimen / Unknown 03/13/2025 10:03 AM EDT 03/13/2025 11:04 AM EDT us Leandra Byrd DO LAB BLOOD ORDERABLES Final R esult [facility] [address] [place] [phone] * TSH (03/13/2025 10:03 AM EDT) Thyroid Stimulating Hormone 2.62 0.32 - 4.0 uIU/mL [facility] Comment:Note: A sustained TS H level above 2.5 uIU/mL may warrant further investigation. TSH 3rd Generation ([facility]) Blood Venous blood specimen / Unknown 03/13/2025 10:03 AM EDT 03/13/2025 11:12 AM EDT Leandra Byrd DO LAB BLOOD ORDERABLES Final R esult Performing Organization Address City/[facility]/ZIP Co de Phone Number [facility] [address] [place] [phone] * T4, Free (03/13/2025 10:03 AM EDT) Free T4 (Free Thyroxine) 0.98 0.71 - 1.85 ng/dL [facility] Blood Venous blood specimen / Unknown 03/13/2025 10:03 AM EDT 03/13/2025 11:12 AM EDT Leandra Byrd DO LAB BLOOD ORDERABLES Final R esult Performing Organization Address [facility] Co de Phone Number [facility] [address] [place] [phone] * (ABNORMAL) Hemoglobin A1c (03/13/2025 10:03 AM EDT) Hemoglobin A1c 6.3(H) <6.0 % [facility] Comment:Hemoglobin A1C Refer ence Range Adults: 4.8 - 6.0 % Non diabetic: < 6.0 % Goal: < 7.0 %Additional Action Suggested: > 8.0 %Note: Hemoglobin A1c results are invalid for patients with abnormal amounts of HbF. Blood transfusions may impact the HbA1c concentration in the patient sample. Estimated Average Glucose 134 mg/dL [facility] Comment:eAG = Estimated ave rage glucose which is %A1C expressed asaverage glucose, using the formula of the X4H-ZtnwxtjItwoxhm Glucose study (ADAG), Diabetes Care, Vol.31,#8,Jan. 2007 Blood Venous blood specimen / Unknown 03/13/2025 10:03 AM EDT 03/13/2025 11:04 AM EDT Leandra Carson DO LAB BLOOD ORDERABLES Final R esult [facility] [address] [place] [phone] * (ABNORMAL) Hepatic Function Panel (03/13/2025 10:03 AM EDT) Bilirubin, Total 0.5 0.0 - 1.0 mg/dL [facility] Bilirubin, Direct 0.2 0.0 - 0.5 mg/dL [facility] Aspartate Amino Transferase 35(H) 5 - 31 U/L [facility] Alanine Aminotransferase 35(H) 0 - 31 U/L [facility] Total Protein 7.2 6.5 - 8.0 g/dL [facility] Albumin Level 4.5 3.5 - 5.0 g/dL [facility] Alkaline Phosphatase 62 39 - 117 U/L [facility] Blood Venous blood specimen / Unknown 03/13/2025 10:03 AM EDT 03/13/2025 11:12 AM EDT Leandra Byrd DO LAB BLOOD ORDERABLES Final R esult Performing Organization Address City/[facility]/ZIP Co de Phone Number [facility] [address] [place] [phone] * (ABNORMAL) Lipid Panel, Standard (03/13/2025 10:03 AM EDT) Triglycerides 109 <150 mg/dL [facility] Comment:Desirable Triglyceri de: less than 150 mg/dLBorderline High Triglyceride 150-199 mg/dLHigh Triglyceride: 200-499 mg/dLVery High Triglyceride: greater than or equal to 5OO mg/dL Cholesterol 184 <200 mg/dL [facility] Comment:Desirable Cholestero l: less than 200 mg/dLBorderline High Cholesterol: 200-239 mg/dLHigh Cholesterol: greater than 239 mg/dL LDL Cholesterol Calculated 126(H) <100 mg/dL [facility] Comment:Desirable LDL: less than 100 mg/dLNear Optimal/Above Optimal LDL: 110- 129 mg/dLBorderline High LDL: 130-159 mg/dLHigh LDL: 160-189 mg/dLVery High LDL: greater than or equal to 190 mg/dL HDL Cholesterol 37(L) >40 mg/dL [facility] Comment:Desirable HDL: great er than 40 mg/dL Note: This HDL assay may give artificially low results in patients with liver disease. Blood Venous blood specimen / Unknown 03/13/2025 10:03 AM EDT 03/13/2025 11:12 AM EDT us Leandra Byrd DO LAB BLOOD ORDERABLES Final R esult [facility] [address] [place] [phone] * (ABNORMAL) Basic Metabolic Panel (03/13/2025 10:03 AM EDT) Sodium 137 135 - 145 mmol/L [facility] Potassium 4.3 3.3 - 5.1 mmol/L [facility] Chloride 106 96 - 108 mmol/L [facility] Carbon Dioxide 24 22 - 29 mmol/L [facility] Anion Gap 11(L) 12 - 20 [facility] Urea Nitrogen (BUN) 10 9 - 16 mg/dL [facility] Creatinine, Serum 0.76 0.5 - 1.4 mg/dL [facility] Estimated Glomerular Filt Rate >60 [facility] Comment:Chronic Kidney Disea se: Estimated GFR < 60 mL/min/1.20h2Emjybf Kidney Disease: Estimated GFR < 15 mL/min/1.73m2 Glucose 125(H) 60 - 115 mg/dL [facility] Calcium 9.1 8.4 - 10.2 mg/dL [facility] Blood Venous blood specimen / Unknown 03/13/2025 10:03 AM EDT 03/13/2025 11:12 AM EDT Leandra Byrd DO LAB BLOOD ORDERABLES Final R esult Performing Organization Address [facility] Co de Phone Number [facility] [address] [place] [phone] * Bacterial Vaginosis Panel (03/08/2025 1:35 PM EDT) TRICHOMONAS VAGINALIS DETECTION BY PCR NOT DETECTED Not Detect [facility] BACTERIAL VAGINOSIS DETECTION BY PCR NEGATIVE Negative [facility] Comment:The BV organism targ ets [...] DETECTION BY PCR NOT DETECTED Not Detect [facility] Fern glab krusei PCR NOT DETECTED Not Detect [facility] Swab Vaginal structure / Unknown 03/08/2025 1:35 PM EDT 03/08/2025 7:29 PM EDT Leandra Byrd DO LAB MICROBIOLOGY - GENERAL O RDERABLES Final Result Performing Organization Address [facility]/ZIP Co de Phone Number [facility] [address] [place] [phone] * (ABNORMAL) Urinalysis, Complete, with Reflex to Culture (02/15/2025 3:32 PM EDT) Color Urine Yellow [facility] Appearance Urine Clear [facility] PH 5.5 5.0 - 9.0 [facility] Glucose Urine UA Negative Negative mg/dL [facility] Urine Blood Negative Negative [facility] Specific [place] - Urine 1.015 1.005 - 1.025 [facility] Urine Protein Negative Neg-Trace mg/dL [facility] Urine Ketones Negative Negative mg/dL [facility] Nitrite Urine Negative Negative [facility] Leukocyte Esterase Urine Large (3+)(A) Negative [facility] RBC Urine 0-2 0 - 2 /HPF [facility] Urine WBC 21-50(A) 0 - 5 /HPF [facility] Urine Squamous Epithelial Cell 3-5 0 - 2 /HPF [facility] Urine Bacteria None Seen None Seen [facility] Hyaline Casts, Urine 0-2 0 - 2 /LPF [facility] 02/15/2025 3:32 PM EDT 02/15/2025 3:37 PM EDT Narrative [facility] - 02/15/2025 4:04 PM EDT [id number], Clean Catch us Generic External Data Provider LAB URINE ORDERAB LES Final Result Performing Organization Address [facility] Co de Phone Number [facility] [address] [place] [phone] * HCG, Qualitative, Urine (02/15/2025 3:32 PM EDT) Urine NEGATIVE NEGATIVE [facility] Comment:This test was develo ped to detect early . Falsenegative results may occur after the 5th - 7th week ofpregnancy when using this test method. If clinicallyindicated, consider a serum hCG. 02/15/2025 3:32 PM EDT 02/15/2025 3:37 PM EDT us Generic External Data Provider LAB URINE ORDERAB LES Final Result Performing Organization Address [facility] Co de Phone Number [facility] [address] [place] [phone] * Culture, Urine, Routine (02/15/2025 12:00 AM EDT) Urine Urine specimen obtained by clean catch procedure / Unknown 02/15/2025 02/15/2025 Comment:CC Narrative [facility] - 02/17/2025 10:56 AM EDT Lactobacillus species Quant > 100,000 cfu/mL Susc N/A Susceptibility not routinely performed on this isolate. Specimen Source: Urine clean catch Generic External Data Provider LAB MICROBIOLOGY - GENERAL ORDERABLES Final Result Performing Organization Address [facility] Co de Phone Number [facility] [address] [place] [phone] * Strep A Nucleic Acid (01/03/2025 6:17 PM EDT) IDNOW SERIAL# [id number] [facility] Strep A Nucleic Acid Negative Negative [facility] Comment:All test results mus t be correlated with clinical findings.This test has not been evaluated for monitoring treatment ofinfection.Additional follow-up testing using the culture method isrequired if the result is negative and clinical symptomspersist, or in the event of an acute rheumatic feveroutbreak. 01/03/2025 6:17 PM EDT 01/03/2025 6:27 PM EDT Jostle External Data Provider LAB MICROBIOLOGY - GENERAL ORDERABLES Final Result Performing Organization Address [facility] de Phone Number [facility] [address] [place] [phone] * SARS-CoV-2 RNA, Influenza A/B, and RSV RNA, Ql NAAT (01/03/2025 6:17 PM EDT) Influenza A PCR NEGATIVE Negative [facility] Influenza B PCR NEGATIVE Negative [facility] Resp Syncy Virus RNA Qual PCR NEGATIVE Negative [facility] SARS COV2 PCR NEGATIVE Negative [facility] Comment:All test results mus t [...] use by authorized laboratories.Testing performed on the WUT GeneXpert utilizingreal-time RT-PCR.All SARS CoV2 and positive influenza A/B results arereported to [facility]. 01/03/2025 6:17 PM EDT 01/03/2025 6:27 PM EDT us Generic External Data Provider LAB MICROBIOLOGY - GENERAL ORDERABLES Final Result [facility] [address] [place] [phone] * Pap Smear (06/10/2023) Pap Negative for intraephithelial lesion or malignancy Negative for intraephithelial lesion or malignancy, Other HPV Undetected Undetected, Indeterminate, Quantitative, Not Detected Historical Provider HEALTH MAINTENANCE Final Result from Last 3 Months or Most Recently Relevant to Health Maintenance Insurance [facility] C3 [id number] Care Teams Advertising Supervisor Relationship Specialty Start Date End Date Leandra Byrd DO [address] [place] [address] PCP - General Family Medicine 06/29/18 Ivonne Ledesam, BLADIMIR [address] [place] [phone] Registered Nurse Family Medicine 02/16/25 Ada Rincon 02/16/25
--- OUTSIDE RECORDS SUMMARY | 2025-04-03 15:53 | XMS_ITS | Encounter Summary ---
Author Organization [employer] Address [address] [facility] [address] [place] [address] Care Team Providers Care Drug Safety Scientist Name Role Phone Leandra yBrd DO Primary Care Provider [phone] Ivonne Ledesma RN Unavailable [phone] Ada Rincon Unavailable Reason for Visit * Reason Onset Date Comments Appointment Request 08/21/2023 Encounter Details Date Type Department Care Team ([facility] st Contact Info) Description 08/21/[address] [facility] [address] [place] [address] Leandra Byrd DO [address] [place] [address] Appointment Request Social History Tobacco Use Types [...] for work clearance. Please contact pt at [phone]. documented in this encounter Plan of Treatment Not on file documented as of this encounter Visit Diagnoses Not on filedocumented in this encounter Additional Health Concerns Assessment Noted Time PHQ-9 Depression Total Score: 9 05/07/20 23 11:38 AM EST documented as of this encounter Care Teams Drug Safety Scientist Relationship Specialty Start Date End Date Leandra Byrd DO [address] [place] [address] PCP - General Family Medicine 06/29/18 Ivonne Ledesma, BLADIMIR [address] [place] [address] Registered Nurse Family Medicine 02/16/25 Ada Rincon 02/16/25 documented as of this encounter
--- OUTSIDE RECORDS SUMMARY | 2025-04-03 15:53 | XMS_ITS | Encounter Summary ---
Author Organization [employer] Address [address] [place] [address] [address] [place] [address] Care Team Providers Care Special Investigation Unit Investigator Name Role Phone Leandra Byrd DO Primary Care Provider [phone] Ivonne Ledesma RN Unavailable [phone] Ada Rincon Unavailable Encounter Details Date Type Department Care Team (Late st Contact Info) Description 07/10/2022 Orders Only [facility] MED[facility]INE [address] [place] [address] Corrine Ramsay LPN Social History Tobacco Use [...] on filedocumented in this encounter Care Teams Special Investigation Unit Investigator Relationship Specialty Start Date End Date Leandra Byrd DO [address] [place] [address] PCP - General Family Medicine 06/29/18 Ivonne Ledesma, BLADIMIR [address] [place] [phone] Registered Nurse Family Medicine 02/16/25 Ada Rincon 02/16/25 documented as of this encounter
--- OUTSIDE RECORDS SUMMARY | 2025-04-03 15:53 | XMS_ITS ---
Author Organization [employer] Address [address] [facility] [address] [place] [address] Care Team Providers Care Windows Architect Name Role Phone Leandra Byrd DO Primary Care Provider [phone] Ivonne Ledesma RN Unavailable [phone] Ada Rincon Unavailable [facility] Complex Status:Outreach In Progress (Enrolling) Start date:02/16/2025 Enrollment reason:ADT Feed Overview [facility] ED 02/15/25 UTI. Please outreach for enrollment. Case Team Name Relationship Phone Ada Rincon(Responsible Staff) [phone] Continued Care and Services Coordination
--- OUTSIDE RECORDS SUMMARY | 2025-04-03 15:53 | XMS_ITS | Encounter Summary ---
Author Organization [employer] Address [address] [facility] [place] [address] [place] [address] Care Team Providers Care Lease Operator Name Role Phone Leandra Byrd DO Primary Care Provider [phone] Ivonne Ledesma RN Unavailable [phone] Ada Rincon Unavailable Reason for Visit * Reason Comments Med Refill Encounter Details Date Type Department Care Team ([facility] st Contact Info) Description 03/16/2024 Refill [facility] [address] [place] [address] Leandra Byrd DO [address] [place] [address] Insomnia, unspecified Social History Tobacco Use Types [...] documented as of this encounter Care Teams Lease Operator Relationship Specialty Start Date End Date Leandra Byrd DO [address] [place] [address] PCP - General Family Medicine 06/29/18 Ivonne Ledesma, BLADIMIR [address] [place] [address] Registered Nurse Family Medicine 02/16/25 Ada Rincon 02/16/25 documented as of this encounter
== END 2025-04-03 13:31 | disposition home or self-care (01) ==
LOC: HO.MAMMO 13:30
PROVIDERS: PCP Family Medicine; Visit Provider Family Medicine
DX: N64.4 Mastodynia (principal)
CPT/HCPCS: 76642; 77062; 77066

== ENCOUNTER 2025-04-06 19:22 | Outpatient (REF) | payer MEDICAID, SELFPAY ==
--- NOTE | ~2025-04-06 | MR_ITS ---
CLINICAL HISTORY: persistent mid back pain with radiation to L leg pain MR thoracic spine without gadolinium Comparison: None provided Findings: Thoracic alignment is maintained. Vertebral body height is maintained. No bone marrow edema. 8 mm round T1 and T2 hyperintense round lesion in T10 vertebral body suggestive of hemangioma or focal fat. Discs maintain normal height. Mild disc desiccation in mid to lower thoracic spine. Thoracic cord is normal in size, morphology and signal intensity. No cord impingement. No significant disc bulge, focal disc herniation or significant canal or foraminal stenosis in the thoracic spine. Paraspinous musculature intact. IMPRESSION: No acute findings. This document has been electronically signed by: Pooja Landeros MD on 04/07/2025 17:14:59
== END 2025-04-06 19:23 | disposition home or self-care (01) ==
LOC: HO.MRI 19:22
PROVIDERS: PCP Family Medicine; Visit Provider Family Medicine
DX: M54.9 Dorsalgia, unspecified (principal); G89.29 Other chronic pain; M54.41 Lumbago with sciatica, right side; M54.42 Lumbago with sciatica, left side
CPT/HCPCS: 72146

== ENCOUNTER → 2025-04-06 19:32 | Outpatient (BNV) | payer MEDICAID, SELFPAY | PROVIDERS: PCP Family Medicine; Visit Provider Specialist | DX: M54.6 Pain in thoracic spine (principal) | CPT/HCPCS: 72146 ==